=== PATIENT | female | born 1985 | race Caucasian/White ===

== ENCOUNTER 2016-09-13 | Outpatient (CLI) | payer MEDICAID | END 2016-09-13 18:49 | disposition critical access hospital (66) | CPT/HCPCS: A0425; A0429 ==

== ENCOUNTER 2016-09-13 19:17 | Emergency (ER) | payer MEDICAID ==
[2016-09-13] MEDS ORDERED: SODIUM CHLORIDE 0.9% 1,000 ML IV ONE (19:33)
== END 2016-09-13 21:36 | disposition home or self-care (01) ==
DX: R00.2 Palpitations (principal); R03.0 Elevated blood-pressure reading, without diagnosis of hypertension

== ENCOUNTER 2016-12-10 17:09 | Outpatient (CLI) | payer MEDICAID | END 2016-12-10 17:10 | disposition critical access hospital (66) | DX: R00.2 Palpitations (principal) | CPT/HCPCS: A0425; A0427 ==

== ENCOUNTER 2016-12-10 17:13 | Emergency (ER) | payer MEDICAID ==
[2016-12-10] MEDS ORDERED: POTASSIUM CHLORIDE 20 MEQ TABLET PO STA (18:34)
[2016-12-10] MEDS ORDERED: POTASSIUM CHLORIDE 20 MEQ TABLET PO ONE (18:53)
== END 2016-12-10 19:22 | disposition home or self-care (01) ==
DX: R00.2 Palpitations (principal); E87.6 Hypokalemia; K21.9 Gastro-esophageal reflux disease without esophagitis; Z86.79 Personal history of other diseases of the circulatory system
CPT/HCPCS: 36415; 80053; 81001; 81025; 83690; 83735; 93005; 93010; 99283; 99284; A9270

== ENCOUNTER 2017-03-17 11:00 | Outpatient (CLI) | payer MEDICAID ==
[2017-03-17 13:13] LABS: BASOPHILS # (AUTO) 0.1 10^3/uL (0.0-0.1); BASOPHILS % (AUTO) 1.5 %; EOSINOPHILS # (AUTO) 0.4 10^3/uL (0.0-0.7); EOSINOPHILS % (AUTO) 5.8 %; HCT - HEMATOCRIT 37.5 % (37.0-47.0); HGB - HEMOGLOBIN 12.5 g/dL (12.0-16.0); IMMATURE RETIC FRACTION 0.42; LYMPHOCYTES # (AUTO) 2.4 10^3/uL (1.5-3.5); LYMPHOCYTES % (AUTO) 38.1 %; MEAN CORPUSCULAR HEMOGLOBIN 30.7 pg (27.0-31.0); MEAN CORPUSCULAR HGB CONC 33.2 g/dL (32.0-36.0); MEAN CORPUSCULAR VOLUME 92.5 fL (81.0-99.0); MEAN PLATELET VOLUME 8.4 fL (7.9-10.8); MONOCYTES # (AUTO) 0.3 10^3/uL (0.0-1.0); MONOCYTES % (AUTO) 4.7 %; NEUTROPHILS # (AUTO) 3.1 10^3/uL (1.5-6.6); NEUTROPHILS % (AUTO) 49.9 %; RED BLOOD COUNT 4.06 10^6/uL (4.20-5.40); RED CELL DISTRIBUTION WIDTH 14.1 % (12.0-15.0); UNCORRECTED WHITE BLOOD COUNT 6.2 x10^3/uL; WHITE BLOOD COUNT 6.2 x10^3/uL (4.8-10.8)
[2017-03-17 13:32] LABS: ALBUMIN/GLOBULIN RATIO 1.5 (1.0-2.2); BUN - BLOOD UREA NITROGEN 11 mg/dL (6-20); CALCIUM 9.2 mg/dL (8.5-10.3); CARBON DIOXIDE - CO2 25 mmol/L (21-32); CHLORIDE 106 mmol/L (101-111); CHOL/HDL RATIO 3.3 (<4.4); CHOLESTEROL 204 mg/dL; CREATININE 0.7 mg/dL (0.4-1.0); FERRITIN 83.7 ng/mL (11.0-306.8); GFR - MDRD 96 (>89); GLUCOSE 91 mg/dL (70-100); HDL CHOLESTEROL 61 mg/dL; IRON 50 ug/dL (28-170); LDL/HDL RATIO 2.2 (<4.4); POTASSIUM 4.1 mmol/L (3.5-5.0); SODIUM 139 mmol/L (135-145); TOTAL IRON BINDING CAPACITY 368 ug/dL (250-450); TOTAL PROTEIN 7.2 g/dL (6.7-8.2); TRANSFERRIN 263 mg/dL (192-382); TRIGLYCERIDES 55 mg/dL; VLDL CHOLESTEROL 11 mg/dL
[2017-03-17 13:35] LABS: FOLATE 18.42 ng/mL (5.90 - >24.8)
[2017-03-17 13:43] LABS: THYROID STIMULATING HORMONE 1.59 uIU/mL (0.34-5.60)
== END 2017-03-17 11:01 | disposition home or self-care (01) ==
LOC: LAB.N 11:00
PROVIDERS: ATTEND Family Medicine
DX: D64.9 Anemia, unspecified (principal); Z51.81 Encounter for therapeutic drug level monitoring
CPT/HCPCS: 36415; 80050; 80061; 82607; 82728; 82746; 83540; 84466; 85044

== ENCOUNTER 2017-04-11 12:52 | Outpatient (CLI) | payer MEDICAID | END 2017-04-11 12:53 | disposition short-term general hospital (02) | LOC: EMS 12:52 | PROVIDERS: ATTEND Surgery | DX: I46.9 Cardiac arrest, cause unspecified (principal) | CPT/HCPCS: A0425; A0433 ==

== ENCOUNTER 2017-05-19 09:15 | Outpatient (CLI) | payer MEDICAID | END 2017-05-19 09:30 | disposition home or self-care (01) | LOC: RT.N 09:15 | PROVIDERS: ATTEND Family Medicine | DX: I49.9 Cardiac arrhythmia, unspecified (principal); E87.6 Hypokalemia; G93.1 Anoxic brain damage, not elsewhere classified | CPT/HCPCS: 36415; 80050; 83735; 93005 ==

== ENCOUNTER 2017-05-19 15:09 | Outpatient (CLI) | payer MEDICAID ==
[2017-05-19 13:02] LABS: BASOPHILS # (AUTO) 0.1 10^3/uL (0.0-0.1); BASOPHILS % (AUTO) 1.3 %; EOSINOPHILS # (AUTO) 0.3 10^3/uL (0.0-0.7); EOSINOPHILS % (AUTO) 4.6 %; HCT - HEMATOCRIT 32.1 % (37.0-47.0); HGB - HEMOGLOBIN 10.7 g/dL (12.0-16.0); LYMPHOCYTES # (AUTO) 2.9 10^3/uL (1.5-3.5); LYMPHOCYTES % (AUTO) 48.8 %; MEAN CORPUSCULAR HEMOGLOBIN 30.2 pg (27.0-31.0); MEAN CORPUSCULAR HGB CONC 33.3 g/dL (32.0-36.0); MEAN CORPUSCULAR VOLUME 90.5 fL (81.0-99.0); MEAN PLATELET VOLUME 8.5 fL (7.9-10.8); MONOCYTES # (AUTO) 0.3 10^3/uL (0.0-1.0); MONOCYTES % (AUTO) 5.5 %; NEUTROPHILS # (AUTO) 2.3 10^3/uL (1.5-6.6); NEUTROPHILS % (AUTO) 39.8 %; RED BLOOD COUNT 3.55 10^6/uL (4.20-5.40); RED CELL DISTRIBUTION WIDTH 14.5 % (12.0-15.0); UNCORRECTED WHITE BLOOD COUNT 5.9 x10^3/uL; WHITE BLOOD COUNT 5.9 x10^3/uL (4.8-10.8)
[2017-05-19 13:08] LABS: ALBUMIN/GLOBULIN RATIO 1.4 (1.0-2.2); BILIRUBIN,TOTAL 0.8 mg/dL (0.2-1.0); CALCIUM 9.3 mg/dL (8.5-10.3); CREATININE 0.7 mg/dL (0.4-1.0); POTASSIUM 4.4 mmol/L (3.5-5.0); TOTAL PROTEIN 6.7 g/dL (6.7-8.2)
== END 2017-05-19 15:10 | disposition home or self-care (01) ==
LOC: LAB.N 15:09
PROVIDERS: ATTEND Family Medicine
DX: E87.6 Hypokalemia (principal); G93.1 Anoxic brain damage, not elsewhere classified; I49.9 Cardiac arrhythmia, unspecified
CPT/HCPCS: 36415; 80050; 83735

== ENCOUNTER 2017-05-21 14:58 | Outpatient (CLI) | payer MEDICAID | END 2017-05-21 14:59 | disposition short-term general hospital (02) | LOC: EMS 14:58 | PROVIDERS: ATTEND Surgery | DX: R09.89 Other specified symptoms and signs involving the circulatory and respiratory systems (principal) | CPT/HCPCS: A0425; A0427 ==

== ENCOUNTER 2017-08-31 10:23 | Outpatient (CLI) | payer MEDICAID | END 2017-08-31 10:24 | disposition home or self-care (01) | LOC: LAB.N 10:23 | PROVIDERS: ATTEND Psychiatry & Neurology Neurology | DX: G25.3 Myoclonus (principal) | CPT/HCPCS: 36415; 80177 ==

== ENCOUNTER 2017-09-03 16:00 | Outpatient (CLI) | payer MEDICAID | END 2017-09-03 16:01 | disposition home or self-care (01) | LOC: LAB 16:00 | PROVIDERS: ATTEND Psychiatry & Neurology Neurology | DX: G25.3 Myoclonus (principal); T88.7XXA Unspecified adverse effect of drug or medicament, initial encounter | CPT/HCPCS: 36415; 80164; 82140 ==

== ENCOUNTER 2017-09-23 13:54 | Outpatient (CLI) | payer MEDICAID ==
[2017-09-23 19:02] LABS: BASOPHILS # (AUTO) 0.1 10^3/uL (0.0-0.1); BASOPHILS % (AUTO) 1.2 %; EOSINOPHILS # (AUTO) 0.2 10^3/uL (0.0-0.7); EOSINOPHILS % (AUTO) 3.8 %; HGB - HEMOGLOBIN 11.8 g/dL (12.0-16.0); LYMPHOCYTES # (AUTO) 3.2 10^3/uL (1.5-3.5); LYMPHOCYTES % (AUTO) 50.3 %; MEAN CORPUSCULAR HEMOGLOBIN 29.6 pg (27.0-31.0); MEAN CORPUSCULAR VOLUME 89.8 fL (81.0-99.0); MEAN PLATELET VOLUME 8.9 fL (7.9-10.8); MONOCYTES # (AUTO) 0.4 10^3/uL (0.0-1.0); MONOCYTES % (AUTO) 6.6 %; NEUTROPHILS # (AUTO) 2.4 10^3/uL (1.5-6.6); NEUTROPHILS % (AUTO) 38.1 %; PLT - PLATELET COUNT 191 10^3/uL (130-450); RED BLOOD COUNT 3.98 10^6/uL (4.20-5.40); RED CELL DISTRIBUTION WIDTH 14.2 % (12.0-15.0); WHITE BLOOD COUNT 6.4 x10^3/uL (4.8-10.8)
[2017-09-23 19:13] LABS: ALBUMIN 3.9 g/dL (3.2-5.5); ALBUMIN/GLOBULIN RATIO 1.4 (1.0-2.2); BILIRUBIN,TOTAL 0.9 mg/dL (0.2-1.0); CREATININE 0.7 mg/dL (0.4-1.0); TOTAL PROTEIN 6.7 g/dL (6.7-8.2)
== END 2017-09-23 13:55 | disposition home or self-care (01) ==
LOC: LAB.N 13:54
PROVIDERS: ATTEND Psychiatry & Neurology Neurology
DX: G40.409 Other generalized epilepsy and epileptic syndromes, not intractable, without status epilepticus (principal); T88.7XXA Unspecified adverse effect of drug or medicament, initial encounter
CPT/HCPCS: 36415; 80053; 80177; 85025

== ENCOUNTER 2017-11-18 08:40 | Outpatient (CLI) | payer MEDICAID ==
[2017-11-18 12:51] LABS: BASOPHILS # (AUTO) 0.1 10^3/uL (0.0-0.1); BASOPHILS % (AUTO) 1.1 %; EOSINOPHILS # (AUTO) 0.2 10^3/uL (0.0-0.7); EOSINOPHILS % (AUTO) 4.5 %; HGB - HEMOGLOBIN 11.8 g/dL (12.0-16.0); LYMPHOCYTES # (AUTO) 2.5 10^3/uL (1.5-3.5); LYMPHOCYTES % (AUTO) 48.4 %; MEAN CORPUSCULAR HEMOGLOBIN 31.8 pg (27.0-31.0); MEAN CORPUSCULAR HGB CONC 34.4 g/dL (32.0-36.0); MEAN CORPUSCULAR VOLUME 92.3 fL (81.0-99.0); MEAN PLATELET VOLUME 8.3 fL (7.9-10.8); MEAN RETIC VALUE 107.8; MONOCYTES # (AUTO) 0.4 10^3/uL (0.0-1.0); MONOCYTES % (AUTO) 7.1 %; NEUTROPHILS % (AUTO) 38.9 %; PLT - PLATELET COUNT 220 10^3/uL (130-450); RED BLOOD COUNT 3.72 10^6/uL (4.20-5.40); RED CELL DISTRIBUTION WIDTH 14.8 % (12.0-15.0); WHITE BLOOD COUNT 5.2 x10^3/uL (4.8-10.8)
[2017-11-18 13:12] LABS: ALBUMIN 3.7 g/dL (3.2-5.5); ALBUMIN/GLOBULIN RATIO 1.3 (1.0-2.2); BILIRUBIN,TOTAL 0.6 mg/dL (0.2-1.0); CALCIUM 8.9 mg/dL (8.5-10.3); CREATININE 0.7 mg/dL (0.4-1.0); TOTAL PROTEIN 6.5 g/dL (6.7-8.2)
[2017-11-18 13:26] LABS: FERRITIN 92.7 ng/mL (11.0-306.8)
[2017-11-18 13:29] LABS: FOLATE 8.69 ng/mL (5.90 - >24.8)
== END 2017-11-18 08:41 | disposition home or self-care (01) ==
LOC: LAB.N 08:40
PROVIDERS: ATTEND Family Medicine
DX: E87.6 Hypokalemia (principal); I49.9 Cardiac arrhythmia, unspecified; D64.9 Anemia, unspecified
CPT/HCPCS: 36415; 80053; 82607; 82728; 82746; 83540; 84466; 85025; 85044

== ENCOUNTER 2017-12-21 20:40 | Outpatient (CLI) | payer MEDICAID ==
[2017-12-21 21:14] LABS: VALPROIC ACID (DEPAKOTE) 45.4 ug/mL
== END 2017-12-21 20:41 | disposition home or self-care (01) ==
LOC: LAB 20:40
PROVIDERS: ATTEND Psychiatry & Neurology Neurology
DX: G25.3 Myoclonus (principal)
CPT/HCPCS: 36415; 80164; 80177; 82140

== ENCOUNTER 2018-02-12 08:08 | Outpatient (CLI) | payer MEDICAID | END 2018-02-12 08:09 | disposition home or self-care (01) | LOC: LAB 08:08 | PROVIDERS: ATTEND Psychiatry & Neurology Neurology | DX: G25.3 Myoclonus (principal) | CPT/HCPCS: 36415; 80177 ==

== ENCOUNTER 2018-04-03 18:11 | Outpatient (CLI) | payer MEDICAID | END 2018-04-03 18:12 | disposition critical access hospital (66) | LOC: EMS 18:11 | PROVIDERS: ATTEND Surgery | DX: R56.9 Unspecified convulsions (principal) | CPT/HCPCS: A0425; A0429; A0999 ==

== ENCOUNTER 2018-04-03 18:34 | Emergency (ER) | payer MEDICAID ==
[2018-04-03] MEDS ORDERED: LORazepam 2 MG/ML VIAL IVP STA (19:12)
--- NOTE | 2018-04-03 19:36 | ED Physician Documentation ---
History of Present Illness - Stated complaint Stated Complaint: SZ'S - Chief complaint Chief Complaint: General - History obtained from History obtained from: Patient, Family, EMS - History of Present Illness Timing: Today Pain level max: 0 Pain level now: 0 Improved by: nothing Worsened by: nothing - Additonal information Additional information: Patient is a 32-year-old female who presents to the emergency department with an increase in her myoclonic activity today. This is not uncommon for her, but she did take her Ativan without resolution. She was recently started on Topamax. She has a history of anoxic brain injury, pacemaker status post cardiac arrest. Denies any other symptoms at this time. She is accompanied by her mother today. No fevers. No vomiting. No dysuria Review of Systems Ten Systems: 10 systems reviewed and negative Constitutional: denies: Fever, Chills Ears: denies: Ear pain Nose: denies: Rhinorrhea / runny nose, Congestion Respiratory: denies: Cough GI: denies: Nausea, Vomiting, Diarrhea : denies: Dysuria, Now EGA Skin: denies: Rash Musculoskeletal: denies: Neck pain, Back pain Neurologic: denies: Headache PD PAST MEDICAL HISTORY - Past Medical History Cardiovascular: [place], Arrhythmia, Other Neuro: Headaches, Seizure disorder GI: GERD Psych: Depression, Anxiety Other Past Medical History: pacemaker - Past Surgical History Past Surgical History: Yes General: Cholecystectomy, EGD Cardiovascular: Pacemaker - Present Medications Home Medications: Ambulatory Orders Medication Instructions Recorded Confirmed Ascorbic Acid [C-500] 1 tab PO DAILY 05/21/14 12/10/16 Ferrous Gluconate 1 tab PO BID 05/21/14 12/10/16 LORazepam [Lorazepam] 0.5 mg PO TID PRN 05/21/14 12/10/16 Ezra Cit/Mag/D3/Zn/Pewter Fabricator/[place]/Bor 1 tab BID 12/10/16 12/10/16 [Citracal-Vit D + Magnesium Tab] Cholecalciferol (Vitamin D3) 1,000 units BID 12/10/16 12/10/16 [Vitamin D3] FLUoxetine [PROzac] 20 mg PO DAILY 12/10/16 12/10/16 Magnesium 500 mg PO DAILY 12/10/16 12/10/16 Ubidecarenone [Co Q-10] 50 mg BID 12/10/16 12/10/16 Acetaminophen [Tylenol Extra 250 mg PO PRN PRN 04/03/18 04/03/18 Strength] Aspirin 162 mg PO PRN PRN 04/03/18 04/03/18 Docusate Sodium 250Mg Capsule 250 mg PO BID 04/03/18 04/03/18 [Colace 250Mg Capsule] Ibuprofen 600 mg PO PRN PRN 04/03/18 04/03/18 Levetiracetam [Keppra] 1,500 mg PO BID 04/03/18 04/03/18 Pantoprazole [Protonix] 40 mg PO DAILY 04/03/18 04/03/18 Propranolol [Inderal] 10 mg PO TID 04/03/18 04/03/18 Simethicone [Gas Relief] PRN 04/03/18 Topiramate [Topamax] 25 mg PO BID 04/03/18 04/03/18 - Allergies Allergies/Adverse Reactions: Allergies Allergy/AdvReac Type Severity Reaction Status Date / Time azithromycin [From Zithromax] AdvReac Severe prolonged Verified 04/03/18 18:43 qt ciprofloxacin [From Cipro] AdvReac Severe prolonged Verified 04/03/18 18:43 QT ciprofloxacin HCl * AdvReac Severe prolonged Verified 04/03/18 18:43 [From Cipro] QT desipramine AdvReac Severe prolonged Verified 04/03/18 18:43 QT diphenhydramine HCl * AdvReac Severe prolonged Verified 04/03/18 18:43 [From Benadryl] QT droperidol [From Inapsine] AdvReac Severe prolonged Verified 04/03/18 18:43 QT erythromycin base AdvReac Severe prolonged Verified 04/03/18 18:43 [Erythromycin Base] QT levofloxacin [From Levaquin] AdvReac Severe prolonged Verified 04/03/18 18:43 QT prochlorperazine edisylate * AdvReac Severe prolonged Verified 04/03/18 18:43 [From Compazine] qt prochlorperazine maleate * AdvReac Severe prolonged Verified 04/03/18 18:43 [From Compazine] qt sertraline AdvReac Severe prolonged Verified 05/21/14 03:55 QT Sulfa (Sulfonamide AdvReac Hallucinati Verified 10/08/14 10:58 Antibiotics) ons - Social History Does the pt smoke?: No Smoking Status: Never smoker Does the pt drink ETOH?: No Does the pt have substance abuse?: No - Immunizations Immunizations are current?: Yes - POLST Patient has POLST: No PD ED PE NORMAL - Vitals Vital signs reviewed: Yes - General General: Alert and oriented X 3, No acute distress, Well developed/nourished - HEENT HEENT: Moist mucous membranes - Neck Neck: Supple, no meningeal sign - Cardiac Cardiac: RRR - Respiratory Respiratory: No respiratory distress, Clear bilaterally - Abdomen Abdomen: Soft, Non tender, Non distended - Back Back: No CVA TTP, No spinal TTP - Derm Derm: Warm and dry - Extremities Extremities: No edema - Neuro Neuro: Alert and oriented X 3 - Psych Psych: Normal mood, Normal affect Results - Vitals Vitals: Vital Signs - 24 hr 04/03/18 04/03/18 04/03/18 18:33 18:58 19:45 Temperature 36.6 C Heart Rate 75 77 Respiratory 20 19 Rate Blood Pressure 131/102 H 114/75 O2 Saturation 97 98 04/03/18 21:02 Temperature 36.1 C L Heart Rate 82 Respiratory 20 Rate Blood Pressure 115/65 O2 Saturation 97 Oxygen O2 Source Room air - EKG (time done) 1950 Rate: Rate (enter#) (80) Rhythm: NSR [place]: Normal Intervals: Normal AR QRS: Normal Ischemia: Normal ST segments Computer interpretation: Agree with computer - Labs Labs: Laboratory Tests 04/03/18 04/03/18 04/03/18 19:30 19:35 19:35 WBC 8.3 RBC 3.95 L Hgb 12.5 Hct 36.0 L MCV 91.1 MCH 31.7 H MCHC 34.8 RDW 13.2 Plt Count 317 MPV 7.4 L Neut # (Auto) 3.9 Lymph # (Auto) 3.8 H [place] # (Auto) 0.4 Eos # (Auto) 0.2 Baso # (Auto) 0.1 Absolute Nucleated RBC 0.00 Nucleated RBC % 0.0 Sodium 138 Potassium 3.8 Chloride 109 Carbon Dioxide 21 Anion Gap 8.0 BUN 11 Creatinine 0.7 Estimated GFR (MDRD) 96 Glucose 128 H Calcium 9.2 Total Bilirubin 0.6 AST 24 ALT 24 Alkaline Phosphatase 79 Total Protein 7.0 Albumin 4.0 Globulin 3.0 Albumin/Globulin Ratio 1.3 Lipase 53 H Urine Color YELLOW Urine Clarity CLEAR Urine pH 6.5 Ur Specific [place] 1.025 Urine Protein NEGATIVE Urine Glucose (UA) NEGATIVE Urine Ketones NEGATIVE Urine Occult Blood NEGATIVE Urine Nitrite NEGATIVE Urine Bilirubin NEGATIVE Urine Urobilinogen 0.2 (NORMAL) Ur Leukocyte Esterase NEGATIVE Ur Microscopic Review NOT INDICATED Urine Culture Comments NOT INDICATED PD MEDICAL DECISION MAKING - ED course Complexity details: reviewed old records (recent neurology and PCP visits.), reviewed results, re-evaluated patient, considered differential, d/w patient, d/ w family ED course: Patient with myoclonus from her anoxic brain injury. Feels much better after ativan. No acute lab abnormalities. Will have her follow up with her PCP for further care. Patient counseled regarding signs and symptoms for which I believe and urgent re-evaluation would be necessary. Patient with good understanding of and agreement to plan and is comfortable going home at this time This document was made in part using voice recognition software. While efforts are made to proofread this document, sound alike and grammatical errors may occur. - Sepsis Event Vital Signs: Vital Signs - 24 hr 04/03/18 04/03/18 04/03/18 18:33 18:58 19:45 Temperature 36.6 C Heart Rate 75 77 Respiratory 20 19 Rate Blood Pressure 131/102 H 114/75 O2 Saturation 97 98 04/03/18 21:02 Temperature 36.1 C L Heart Rate 82 Respiratory 20 Rate Blood Pressure 115/65 O2 Saturation 97 Oxygen O2 Source Room air Departure - Departure Disposition: 01 Home, Self Care Clinical Impression: Myoclonic disorder Condition: Good Instructions: ED Seizure Recurrent Follow-Up: Rodriguez Sher MD [Physician No Access] - Comments: Your QTc is 438 tonight. Follow up with your doctor for further care. Return if you worsen. Discharge Date/Time: 04/03/18 21:20
[2018-04-03 19:40] LABS: BILIRUBIN,URINE NEGATIVE (NEGATIVE); CLARITY,URINE CLEAR (CLEAR); GLUCOSE, URINE (UA) NEGATIVE (NEGATIVE); KETONES,URINE (UA) NEGATIVE (NEGATIVE); LEUKOCYTE ESTERASE, URINE NEGATIVE (NEGATIVE); NITRITE,URINE NEGATIVE (NEGATIVE); OCCULT BLOOD,URINE NEGATIVE (NEGATIVE); PH,URINE 6.5 PH (5.0-7.5); PROTEIN,URINE NEGATIVE (NEGATIVE); UROBILINOGEN,URINE 0.2 (NORMAL) E.U./dL (NORMAL)
[2018-04-03 19:43] LABS: BASOPHILS # (AUTO) 0.1 10^3/uL (0.0-0.1); EOSINOPHILS # (AUTO) 0.2 10^3/uL (0.0-0.7); EOSINOPHILS % (AUTO) 2.9 %; HGB - HEMOGLOBIN 12.5 g/dL (12.0-16.0); LYMPHOCYTES # (AUTO) 3.8 10^3/uL (1.5-3.5); LYMPHOCYTES % (AUTO) 45.2 %; MEAN CORPUSCULAR HEMOGLOBIN 31.7 pg (27.0-31.0); MEAN CORPUSCULAR HGB CONC 34.8 g/dL (32.0-36.0); MEAN CORPUSCULAR VOLUME 91.1 fL (81.0-99.0); MEAN PLATELET VOLUME 7.4 fL (7.9-10.8); MONOCYTES # (AUTO) 0.4 10^3/uL (0.0-1.0); MONOCYTES % (AUTO) 4.5 %; NEUTROPHILS # (AUTO) 3.9 10^3/uL (1.5-6.6); NEUTROPHILS % (AUTO) 46.4 %; PLT - PLATELET COUNT 317 10^3/uL (130-450); RED BLOOD COUNT 3.95 10^6/uL (4.20-5.40); RED CELL DISTRIBUTION WIDTH 13.2 % (12.0-15.0); WHITE BLOOD COUNT 8.3 x10^3/uL (4.8-10.8)
[2018-04-03 19:59] LABS: ALBUMIN/GLOBULIN RATIO 1.3 (1.0-2.2); BILIRUBIN,TOTAL 0.6 mg/dL (0.2-1.0); CALCIUM 9.2 mg/dL (8.5-10.3); CREATININE 0.7 mg/dL (0.4-1.0)
[2018-04-03 21:03] VITALS: BP 115/65
== END 2018-04-03 21:20 | disposition home or self-care (01) ==
LOC: EDUNIT# → ED 18:34
DX: G25.3 Myoclonus (principal); G93.1 Anoxic brain damage, not elsewhere classified; Z95.0 Presence of cardiac pacemaker; Z79.899 Other long term (current) drug therapy
CPT/HCPCS: 36415; 80053; 81003; 83690; 85025; 93005; 96374; 99283; 99284; J2060; 81001; 87086

== ENCOUNTER 2018-06-08 09:30 | Outpatient (CLI) | payer MEDICAID ==
[2018-06-08 12:54] LABS: BASOPHILS # (AUTO) 0.1 10^3/uL (0.0-0.1); BASOPHILS % (AUTO) 1.1 %; EOSINOPHILS # (AUTO) 0.1 10^3/uL (0.0-0.7); EOSINOPHILS % (AUTO) 1.6 %; HGB - HEMOGLOBIN 12.8 g/dL (12.0-16.0); LYMPHOCYTES # (AUTO) 2.7 10^3/uL (1.5-3.5); LYMPHOCYTES % (AUTO) 46.5 %; MEAN CORPUSCULAR HEMOGLOBIN 31.7 pg (27.0-31.0); MEAN CORPUSCULAR VOLUME 93.3 fL (81.0-99.0); MEAN PLATELET VOLUME 8.5 fL (7.9-10.8); MONOCYTES # (AUTO) 0.4 10^3/uL (0.0-1.0); MONOCYTES % (AUTO) 6.3 %; NEUTROPHILS # (AUTO) 2.6 10^3/uL (1.5-6.6); NEUTROPHILS % (AUTO) 44.5 %; PLT - PLATELET COUNT 279 10^3/uL (130-450); RED BLOOD COUNT 4.02 10^6/uL (4.20-5.40); RED CELL DISTRIBUTION WIDTH 13.9 % (12.0-15.0); WHITE BLOOD COUNT 5.9 x10^3/uL (4.8-10.8)
[2018-06-08 13:18] LABS: % IRON SATURATION 29 % (20-50); ALBUMIN 4.3 g/dL (3.2-5.5); ALBUMIN/GLOBULIN RATIO 1.3 (1.0-2.2); ALKALINE PHOSPHATASE 86 IU/L (42-121); ALT ALANINE AMINOTRANSFERASE 30 IU/L (10-60); AST ASPARTATE AMINOTRANSFERASE 21 IU/L (10-42); BILIRUBIN,TOTAL 0.8 mg/dL (0.2-1.0); BUN - BLOOD UREA NITROGEN 11 mg/dL (6-20); CALCIUM 9.6 mg/dL (8.5-10.3); CARBON DIOXIDE - CO2 23 mmol/L (21-32); CHLORIDE 107 mmol/L (101-111); CHOL/HDL RATIO 5.3 (<4.4); CHOLESTEROL 213 mg/dL; CREATININE 0.7 mg/dL (0.4-1.0); GFR - MDRD 95 (>89); GLUCOSE 96 mg/dL (70-100); HDL CHOLESTEROL 40 mg/dL; IRON 82 ug/dL (28-170); LDL CHOLESTEROL,CALCULATED 141 mg/dL; LDL/HDL RATIO 3.5 (<4.4); SODIUM 140 mmol/L (135-145); THYROID STIMULATING HORMONE 1.44 uIU/mL (0.34-5.60); TOTAL IRON BINDING CAPACITY 280 ug/dL (250-450); TOTAL PROTEIN 7.5 g/dL (6.7-8.2); TRANSFERRIN 200 mg/dL (192-382); VLDL CHOLESTEROL 32 mg/dL
[2018-06-08 13:24] LABS: FERRITIN 170.6 ng/mL (11.0-306.8)
== END 2018-06-08 09:31 | disposition home or self-care (01) ==
LOC: LAB.N 09:30
PROVIDERS: ATTEND Family Medicine
DX: R56.9 Unspecified convulsions (principal); E87.6 Hypokalemia; E66.9 Obesity, unspecified; D64.9 Anemia, unspecified; Z51.81 Encounter for therapeutic drug level monitoring
CPT/HCPCS: 80050; 80061; 82728; 83540; 83721; 84466

== ENCOUNTER 2018-06-08 20:51 | Observation (INO) | payer MEDICAID ==
[2018-06-08 21:18] LABS: BASOPHILS # (AUTO) 0.1 10^3/uL (0.0-0.1); EOSINOPHILS # (AUTO) 0.1 10^3/uL (0.0-0.7); EOSINOPHILS % (AUTO) 1.7 %; HGB - HEMOGLOBIN 13.1 g/dL (12.0-16.0); LYMPHOCYTES # (AUTO) 3.7 10^3/uL (1.5-3.5); LYMPHOCYTES % (AUTO) 50.1 %; MEAN CORPUSCULAR HEMOGLOBIN 31.1 pg (27.0-31.0); MEAN CORPUSCULAR HGB CONC 33.6 g/dL (32.0-36.0); MEAN CORPUSCULAR VOLUME 92.5 fL (81.0-99.0); MONOCYTES # (AUTO) 0.4 10^3/uL (0.0-1.0); MONOCYTES % (AUTO) 5.7 %; NEUTROPHILS # (AUTO) 3.1 10^3/uL (1.5-6.6); NEUTROPHILS % (AUTO) 41.5 %; PLT - PLATELET COUNT 278 10^3/uL (130-450); RED CELL DISTRIBUTION WIDTH 13.8 % (12.0-15.0); WHITE BLOOD COUNT 7.4 x10^3/uL (4.8-10.8)
--- NOTE | 2018-06-08 21:29 | ED Physician Documentation ---
PD HPI CHEST PAIN - Stated complaint Stated Complaint: CP - Chief complaint Chief Complaint: Cardiac - History obtained from History obtained from: Patient, Family (mom) - History of Present Illness Timing - onset: Today (33-year-old woman with history of cardiac arrest in 2011 due to long QT from meds and in 2017 as well with AICD in place. She presents with chest pain that started today. She feels like there is a swollen area between her breasts. She had a similar episode 6 months ago and was told that that might be a lipoma. However the mass went away and recurred today. She also has dizziness, spots in her vision, nausea and diarrhea. She denies abdominal pain or possibility of . During the second cardiac arrest she had some anoxic brain injury and much of the history is from the mother because of poor memory.) Review of Systems Ten Systems: 10 systems reviewed and negative Constitutional: denies: Fever, Chills Respiratory: reports: Reviewed and negative GI: reports: Reviewed and negative PD PAST MEDICAL HISTORY - Past Medical History Past Medical History: Yes Cardiovascular: [place], Arrhythmia, Other Neuro: Headaches, Seizure disorder GI: GERD Psych: Depression, Anxiety - Past Surgical History Past Surgical History: Yes General: Cholecystectomy, EGD Cardiovascular: Pacemaker - Present Medications Home Medications: Ambulatory Orders Medication Instructions Recorded Confirmed Ascorbic Acid [C-500] 1 tab PO DAILY 05/21/14 12/10/16 Ferrous Gluconate 1 tab PO BID 05/21/14 12/10/16 LORazepam [Lorazepam] 0.5 mg PO TID PRN 05/21/14 12/10/16 Ezra Cit/Mag/D3/Zn/Cushion Spring Assembler/[place]/Bor 1 tab BID 12/10/16 12/10/16 [Citracal-Vit D + Magnesium Tab] Cholecalciferol (Vitamin D3) 1,000 units BID 12/10/16 12/10/16 [Vitamin D3] FLUoxetine [PROzac] 20 mg PO DAILY 12/10/16 12/10/16 Magnesium 500 mg PO DAILY 12/10/16 12/10/16 Ubidecarenone [Co Q-10] 50 mg BID 12/10/16 12/10/16 Acetaminophen [Tylenol Extra 250 mg PO PRN PRN 04/03/18 04/03/18 Strength] Aspirin 162 mg PO PRN PRN 04/03/18 04/03/18 Docusate Sodium 250Mg Capsule 250 mg PO BID 04/03/18 04/03/18 [Colace 250Mg Capsule] Ibuprofen 600 mg PO PRN PRN 04/03/18 04/03/18 Levetiracetam [Keppra] 1,500 mg PO BID 04/03/18 04/03/18 Pantoprazole [Protonix] 40 mg PO DAILY 04/03/18 04/03/18 Propranolol [Inderal] 10 mg PO TID 04/03/18 04/03/18 Simethicone [Gas Relief] PRN 04/03/18 Topiramate [Topamax] 25 mg PO BID 04/03/18 04/03/18 - Allergies Allergies/Adverse Reactions: Allergies Allergy/AdvReac Type Severity Reaction Status Date / Time azithromycin [From Zithromax] AdvReac Severe prolonged Verified 06/08/18 21:15 qt ciprofloxacin [From Cipro] AdvReac Severe prolonged Verified 06/08/18 21:15 QT ciprofloxacin HCl * AdvReac Severe prolonged Verified 06/08/18 21:15 [From Cipro] QT desipramine AdvReac Severe prolonged Verified 06/08/18 21:15 QT diphenhydramine HCl * AdvReac Severe prolonged Verified 06/08/18 21:15 [From Benadryl] QT droperidol [From Inapsine] AdvReac Severe prolonged Verified 06/08/18 21:15 QT erythromycin base AdvReac Severe prolonged Verified 06/08/18 21:15 [Erythromycin Base] QT levofloxacin [From Levaquin] AdvReac Severe prolonged Verified 06/08/18 21:15 QT prochlorperazine edisylate * AdvReac Severe prolonged Verified 06/08/18 21:15 [From Compazine] qt prochlorperazine maleate * AdvReac Severe prolonged Verified 06/08/18 21:15 [From Compazine] qt sertraline AdvReac Severe prolonged Verified 06/08/18 21:15 QT Sulfa (Sulfonamide AdvReac Hallucinati Verified 06/08/18 21:15 Antibiotics) ons - Social History Does the pt smoke?: No Smoking Status: Never smoker Does the pt drink ETOH?: No Does the pt have substance abuse?: No - Immunizations Immunizations are current?: Yes - POLST Patient has POLST: No PD ED PE NORMAL - Vitals Vital signs reviewed: Yes - General General: Alert and oriented X 3, Other (Labile mood) - HEENT HEENT: PERRL, EOMI - Neck Neck: Supple, no meningeal sign, No bony TTP - Cardiac Cardiac: RRR, No murmur, Other (I do not feel any specific mass between the breasts, does seem to be a lot of soft tissue between the breasts though) - Respiratory Respiratory: No respiratory distress, Clear bilaterally - Abdomen Abdomen: Normal bowel sounds, Soft, Non tender - Derm Derm: Normal color, Warm and dry - Extremities Extremities: No edema, No calf tenderness / cord - Neuro Neuro: Alert and oriented X 3, Normal speech Eye Opening: Spontaneous Motor: Obeys Commands Verbal: Oriented GCS Score: 15 Results - Vitals Vitals: Vital Signs - 24 hr 06/08/18 06/08/18 06/08/18 21:01 21:16 21:37 Temperature 36.7 C Heart Rate 75 75 75 Respiratory 18 21 16 Rate Blood Pressure 130/75 93/58 L 105/78 O2 Saturation 98 100 96 06/08/18 06/08/18 22:10 22:15 Temperature Heart Rate 75 72 Respiratory 27 H 16 Rate Blood Pressure 118/67 132/94 H O2 Saturation 97 99 Oxygen O2 Source Room air - EKG (time done) 2101 Rate: Rate (enter#) (75) Rhythm: NSR [place]: Normal Intervals: Normal [place]. No: Prolonged QT QRS: Normal Ischemia: Normal ST segments Computer interpretation: Agree with computer - Labs Labs: Laboratory Tests 06/08/18 06/08/18 06/08/18 21:09 21:09 21:09 WBC 7.4 RBC 4.20 Hgb 13.1 Hct 38.8 MCV 92.5 MCH 31.1 H MCHC 33.6 RDW 13.8 Plt Count 278 MPV 8.0 Neut # (Auto) 3.1 Lymph # (Auto) 3.7 H [place] # (Auto) 0.4 Eos # (Auto) 0.1 Baso # (Auto) 0.1 Absolute Nucleated RBC 0.01 Nucleated RBC % 0.1 Sodium 139 Potassium 3.8 Chloride 107 Carbon Dioxide 23 Anion Gap 9.0 BUN 14 Creatinine 0.7 Estimated GFR (MDRD) 95 Glucose 125 H Calcium 9.2 Total Bilirubin 0.6 AST 22 ALT 24 Alkaline Phosphatase 89 Troponin I < 0.04 Total Protein 7.3 Albumin 4.3 Globulin 3.0 Albumin/Globulin Ratio 1.4 Lipase 44 PD MEDICAL DECISION MAKING - ED course ED course: 33-year-old woman with history of cardiac arrest x2 presents with chest pain, sensation of swelling between the breasts, previously diagnosed as lipoma. Nothing on CT imaging there to explain that. Given her high risk history despite her young age she will placed in observation and I spoke with Dr. Mcclain at 10:42 PM. Departure - Departure Disposition: ED Place in Observation Clinical Impression: History of cardiac arrest Chest pain Qualifiers: Chest pain type: unspecified Qualified Code(s): R07.9 - Chest pain, unspecified Condition: Good
[2018-06-08] MEDS ORDERED: IOPAMIDOL-300 100 ML VIAL ONE (21:30)
[2018-06-08 21:33] LABS: ALBUMIN 4.3 g/dL (3.2-5.5); ALBUMIN/GLOBULIN RATIO 1.4 (1.0-2.2); BILIRUBIN,TOTAL 0.6 mg/dL (0.2-1.0); CALCIUM 9.2 mg/dL (8.5-10.3); CREATININE 0.7 mg/dL (0.4-1.0); TOTAL PROTEIN 7.3 g/dL (6.7-8.2)
[2018-06-08] MEDS ORDERED: IOPAMIDOL-300 100 ML VIAL IVP ONE (22:15)
--- NOTE | 2018-06-08 22:40 | CT Report ---
Reason: anterior chest wall mass Procedure Date: 06/08/2018 Accession Number: [id number] / [id number] Procedure: CT - Chest W/ CPT Code: FULL RESULT: EXAM: CT CHEST EXAM DATE: 06/08/2018 10:13 PM. CLINICAL HISTORY: Anterior chest wall mass. COMPARISONS: None. TECHNIQUE: Routine helical CT imaging was performed through the chest. IV contrast: Yes. Reconstructions: Coronal and sagittal. In accordance with CT protocol optimization, one or more of the following dose reduction techniques were utilized for this exam: automated exposure control, adjustment of mA and/or KV based on patient size, or use of iterative reconstructive technique. FINDINGS: Lungs/Pleura: No nodules, bronchial thickening, consolidation, or edema. Pulmonary vasculature is normal. No pericardial or pleural effusion. No pneumothorax. Mediastinum: Normal. No adenopathy or masses. The heart and great vessels are normal. Bones: Unremarkable. Visualized Abdomen: Unremarkable post cholecystectomy. Other: Left pacemaker in place. No soft tissue mass seen in the chest. IMPRESSION: Negative chest CT. No soft tissue mass seen in the chest. RAD[facility]
[2018-06-08] MEDS ORDERED: PROCHLORPERAZINE 10 MG/2 ML VIAL IVP PRN (22:42)
[2018-06-08] MEDS ORDERED: SODIUM CHLORIDE FLUSH 0.9% 10 ML SYRINGE IVP PRN (22:42)
[2018-06-08] MEDS ORDERED: IBUPROFEN 600 MG TABLET PO PRN (22:42)
[2018-06-08] MEDS ORDERED: MORPHINE 2 MG/ML CARPUJECT IVP PRN (22:42)
[2018-06-08] MEDS ORDERED: ASPIRIN CHEW 81 MG TABLET PO ONE (22:42)
[2018-06-08] MEDS ORDERED: ACETAMINOPHEN 325 MG TABLET PO PRN (22:42)
[2018-06-08] MEDS ORDERED: oxyCODONE 5 MG TABLET PO PRN (22:42)
[2018-06-08] MEDS ORDERED: PROPRANOLOL 10 MG TABLET PO STA (22:50)
[2018-06-08] MEDS ORDERED: levETIRAcetam 250 MG TABLET PO STA (22:50)
[2018-06-08] MEDS ORDERED: LORazepam 0.5 MG TABLET PO STA (22:50)
[2018-06-08] MEDS ORDERED: TOPIRAMATE 25 MG TABLET PO STA (22:50)
[2018-06-08] MEDS ORDERED: NITROGLYCERIN 50 MG/250 ML 50 MG/250 ML BOTTLE IV SCH (23:00)
--- NOTE | 2018-06-08 23:00 | HISTORY & PHYSICAL EXAMINATION ---
Chief Complaint - Chief Complaint Chief Complaint: Chest pain History of Present Illness - Admitted From Admitted From:: Emergency Department - History Obtained From Records Reviewed: Yes History obtained from: Patient and patients mom Exam Limitations: Pt has some mild difficulties providing history due to anoxic brain injury - History of Present Illness HPI Comment/Other: Patient is a very unfortunate 33-year-old female who has a past medical history significant for 2 cardiac arrests 1 in 2011 secondary to prolonged QT with torsades and more recently in 2017 leading to anoxic brain injury who now has a AICD, history of trisomy X, anxiety, depression, seizures, chronic migraines, myoclonic disorder, generalized anxiety disorder and panic attacks who presented to the emergency department with a chief complaint of chest pain. The patient states that she was in her normal state of health until just after dinner when she states that she had an episode of diarrhea. She states that after the diarrhea she went back to her table in the restaurant and did not feel well. She states that she felt nauseated and wanted to go home. She states that she paid the bill with her mother and was walking out of the restaurant with her walker. She states that she had to stop after a few steps as she began to have flashing in her visual hall. She states that she has been having this off and on since her anoxic brain injury last year but states that this was more bothersome than normal. She states that she continued to remain nauseated finally she was able to get to her car but was having trouble answering questi ons at that point. She was also moving very slowly. She states that that point she began having a burning sensation below her left breast and tightness over her right breast and into her right shoulder. She states that when she got into the car she checked her blood pressure and it was around 90 systolic and her pulse was 80. She states that her chest discomfort continued until she was brought to the emergency department. She denies any diaphoresis, palpitations or any shortness of breath. She states that she did feel lightheaded. She denies any fevers or chills. She denies any cough. The patient denies any runny nose, sore throat, nasal congestion, difficulty swallowing, orthopnea, PND, increased lower extremity swelling, abdominal pain, vomiting, constipation, urinary urgency, urinary frequency, dysuria, joint swelling, muscle aches, back pain, neck stiffness, recent unintentional weight loss, changes in her appetite, polyuria, polydipsia, skin rash, skin changes, night sweats or any focal neurologic deficits. On presentation to the emergency department the patient was afebrile and vital signs are within normal limits. The patient's blood pressure did drop down to 93/58 while she was in the emergency department. In the emergency department the patient underwent routine lab work which showed a mildly elevated blood glucose of 125 but were otherwise within normal limits. The patient's troponin was less than 0.04 and EKG showed sinus rhythm without any ST elevations or ischemic changes. The patient underwent a CT of her chest which was negative. Given the patient's significant cardiac history the patient was placed in observation for chest pain. History - Past Medical History Cardiovascular: reports: SD, Arrhythmia, Other (Cardiac Arrest x2 ) Neuro: reports: Headaches, Seizure disorder, Other (Anoxic Brain Injury, Myclonic disorder) GI: reports: GERD Psych: reports: Depression, Anxiety, Panic attacks MRSA Hx?: No Other Past Medical History: Trisomy X - Past Surgical History General: reports: Cholecystectomy, EGD Cardiovascular: reports: Pacemaker - Family & Social History Family History: Mother: Alive and Well, Father: Alzheimer's Disease, Other family: CAD (Aunt Breast Ca, Uncle Thyroid Ca), Diabetes, Type 2 (Aunt and uncle) Living arrangement: At home Living Situation: With family Social History Notes: The patient lives with her mother in [place]. The patient's sister also comes over on weekends to help with the patient's care. Patient's father is at [facility] and enrolled in hospice. The patient has lived on [facility] since the age of 1. She does not have any children and is not . She was born in [place]. She is unemployed and on disability. She is never been a smoker, she does not drink alcohol and denies any illicit drug use. - POLST Patient has POLST: No POLST Status: Full Code Meds/Allgy - Home Medications Home Medications: Ambulatory Orders Medication Instructions Recorded Confirmed Ascorbic Acid [C-500] 1 tab PO DAILY 05/21/14 12/10/16 Ferrous Gluconate 1 tab PO BID 05/21/14 12/10/16 LORazepam [Lorazepam] 0.5 mg PO TID PRN 05/21/14 12/10/16 Ezra Cit/Mag/D3/Zn/Personal Health Coach/[place]/Bor 1 tab BID 12/10/16 12/10/16 [Citracal-Vit D + Magnesium Tab] Cholecalciferol (Vitamin D3) 1,000 units BID 12/10/16 12/10/16 [Vitamin D3] FLUoxetine [PROzac] 30 mg PO DAILY 12/10/16 12/10/16 Magnesium 500 mg PO DAILY 12/10/16 12/10/16 Ubidecarenone [Co Q-10] 50 mg BID 12/10/16 12/10/16 Acetaminophen [Tylenol Extra 250 mg PO PRN PRN 04/03/18 04/03/18 Strength] Aspirin 162 mg PO PRN PRN 04/03/18 04/03/18 Docusate Sodium 250Mg Capsule 250 mg PO BID 04/03/18 04/03/18 [Colace 250Mg Capsule] Ibuprofen 600 mg PO PRN PRN 04/03/18 04/03/18 Levetiracetam [Keppra] 1,500 mg PO BID 04/03/18 04/03/18 Pantoprazole [Protonix] 40 mg PO DAILY 04/03/18 04/03/18 Propranolol [Inderal] 10 mg PO TID 04/03/18 04/03/18 Simethicone [Gas Relief] PRN 04/03/18 Topiramate [Topamax] 25 mg PO BID 04/03/18 04/03/18 - Allergies Allergies/Adverse Reactions: Allergies Allergy/AdvReac Type Severity Reaction Status Date / Time azithromycin [From Zithromax] AdvReac Severe prolonged Verified 06/08/18 21:15 qt ciprofloxacin [From Cipro] AdvReac Severe prolonged Verified 06/08/18 21:15 QT ciprofloxacin HCl * AdvReac Severe prolonged Verified 06/08/18 21:15 [From Cipro] QT desipramine AdvReac Severe prolonged Verified 06/08/18 21:15 QT diphenhydramine HCl * AdvReac Severe prolonged Verified 06/08/18 21:15 [From Benadryl] QT droperidol [From Inapsine] AdvReac Severe prolonged Verified 06/08/18 21:15 QT erythromycin base AdvReac Severe prolonged Verified 06/08/18 21:15 [Erythromycin Base] QT levofloxacin [From Levaquin] AdvReac Severe prolonged Verified 06/08/18 21:15 QT prochlorperazine edisylate * AdvReac Severe prolonged Verified 06/08/18 21:15 [From Compazine] qt prochlorperazine maleate * AdvReac Severe prolonged Verified 06/08/18 21:15 [From Compazine] qt sertraline AdvReac Severe prolonged Verified 06/08/18 21:15 QT Sulfa (Sulfonamide AdvReac Hallucinati Verified 06/08/18 21:15 Antibiotics) ons Review of Systems - Other Findings Other Findings: A comprehensive review of systems was performed the pertinent positives and negatives are stated above in the HPI and the remainder of the review of systems is negative. Prior Level of Functionality: The patient uses a walker to ambulate ever since her anoxic brain injury. She is dependent on her mother and sister for significant amount of care including some of her ADLs. Exam - Vital Signs Reviewed Vital Signs: Yes Vital Signs: Vital Signs x48h Temp Pulse Resp BP Pulse Ox 06/08/18 22:53 75 12 104/59 L 97 06/08/18 22:15 72 16 132/94 H 99 06/08/18 22:10 75 27 H 118/67 97 06/08/18 21:37 75 16 105/78 96 06/08/18 21:16 75 21 93/58 L 100 06/08/18 21:01 36.7 C 75 18 130/75 98 - Physical Exam General Appearance: positive: No acute distress, Alert, Anxious, Other (Obese) Eyes Bilateral: positive: Normal inspection, PERRL, EOMI, No lid inflammation, Conjunctivae nml, No scleral icterus ENT: positive: ENT inspection nml, Pharynx nml, Dry mucous membranes. negative: Purulent nasal drainage, Pharyngeal erythema, Oral lesions Neck: positive: Nml inspection, Thyroid nml, No JVD, Trachea midline. negative: Thyromegaly, Lymphadenopathy (R), Lymphadenopathy (L), Stiff neck, Carotid bruit, Tracheal deviation Respiratory: positive: Chest non-tender, No respiratory distress, Breath sounds nml. negative: Wheezes, Rales, Rhonchi Cardiovascular: positive: Regular rate & rhythm, No murmur, No gallop Peripheral Pulses: positive: 2+ Abdomen: positive: Non-tender, No organomegaly, Nml bowel sounds, No distention. negative: Guarding, Rebound, Hepatomegaly Back: positive: Nml inspection. negative: CVA tenderness (R), CVA tenderness (L) Skin: positive: Color nml, No rash, Warm, Dry. negative: Cyanosis, Pallor Extremities: positive: Non-tender, Full ROM, Nml appearance, No pedal edema Neurologic/Psychiatric: positive: Oriented x3, CN's nml (2-12), Motor nml, Sensation nml, Mood/affect nml Conclusion/Plan - Problem List (1) Chest pain Conclusion/Plan: The patient presents to the emergency department with chest pain. The patient's chest pain appears to be atypical. Likely the patient's chest pain is related t o GI symptoms with possible acid reflux. The patient did have an episode of diarrhea and nausea shortly after eating dinner. It is possible the patient may have had some food poisoning or a GI bug. The patient was mildly hypotensive and appeared dehydrated on examination. Given the patient's previous history of 2 cardiac arrests it was felt that the patient warranted at least a overnight observation stay with serial troponins to rule out acute coronary syndrome. Plan: Serial troponins x3 Telemetry monitoring Nitroglycerin when necessary for chest pain Aspirin Lipitor Echo IVF Qualifiers: Chest pain type: unspecified Qualified Code(s): R07.9 - Chest pain, unspecified (2) Anoxic brain injury Conclusion/Plan: The patient has a history of anoxic brain injury. Since the anoxic brain injury the patient has been having myoclonic S, requiring a walker and has been experiencing confusion. The patient has also had seizures. Currently the patient is on Keppra and Topamax for her seizures. We will continue these medications. (3) Anxiety and depression Conclusion/Plan: The patient has a history of anxiety and depression she takes Lorazepam and Pr ozac at home. We will continue these medications while she is hospitalized. The patient currently appears slightly anxious but mood appears to be stable. (4) History of cardiac arrest Conclusion/Plan: The patient has history of 2 cardiac arrest. Currently she has an AICD in place. The patient's AICD did not fire prior to this presentation. Given the patient's chest pain and history of cardiac arrests it is important that we laced the patient in observation and get serial troponins and echocardiogram. - Lab Results Lab results reviewed: Yes Fish Bones: 06/08/18 21:09 06/08/18 21:09 Other Lab Results: Laboratory Results WBC 7.4 x10^3/uL (4.8-10.8) 06/08/18 21:09 RBC 4.20 10^6/uL (4.20-5.40) 06/08/18 21:09 Hgb 13.1 g/dL (12.0-16.0) 06/08/18 21:09 Hct 38.8 % (37.0-47.0) 06/08/18 21:09 MCV 92.5 fL (81.0-99.0) 06/08/18 21:09 MCH 31.1 pg (27.0-31.0) H 06/08/18 21:09 MCHC 33.6 g/dL (32.0-36.0) 06/08/18 21:09 RDW 13.8 % (12.0-15.0) 06/08/18 21:09 Plt Count 278 10^3/uL (130-450) 06/08/18 21:09 MPV 8.0 fL (7.9-10.8) 06/08/18 21:09 Neut # (Auto) 3.1 10^3/uL (1.5-6.6) 06/08/18 21:09 Lymph # (Auto) 3.7 10^3/uL (1.5-3.5) H 06/08/18 21:09 [place] # (Auto) 0.4 10^3/uL (0.0-1.0) 06/08/18 21:09 Eos # (Auto) 0.1 10^3/uL (0.0-0.7) 06/08/18 21:09 Baso # (Auto) 0.1 10^3/uL (0.0-0.1) 06/08/18 21:09 Absolute Nucleated RBC 0.01 x10^3/uL 06/08/18 21:09 Nucleated RBC % 0.1 /100WBC 06/08/18 21:09 Sodium 139 mmol/L (135-145) 06/08/18 21:09 Potassium 3.8 mmol/L (3.5-5.0) 06/08/18 21:09 Chloride 107 mmol/L (101-111) 06/08/18 21:09 Carbon Dioxide 23 mmol/L (21-32) 06/08/18 21:09 Anion Gap 9.0 (6-13) 06/08/18 21:09 BUN 14 mg/dL (6-20) 06/08/18 21:09 Creatinine 0.7 mg/dL (0.4-1.0) 06/08/18 21:09 Estimated GFR (MDRD) 95 (>89) 06/08/18 21:09 Glucose 125 mg/dL (70-100) H 06/08/18 21:09 Calcium 9.2 mg/dL (8.5-10.3) 06/08/18 21:09 Total Bilirubin 0.6 mg/dL (0.2-1.0) 06/08/18 21:09 AST 22 IU/L (10-42) 06/08/18 21:09 ALT 24 IU/L (10-60) 06/08/18 21:09 Alkaline Phosphatase 89 IU/L (42-121) 06/08/18 21:09 Troponin I < 0.04 ng/mL (<0.49) 06/08/18 21:09 Total Protein 7.3 g/dL (6.7-8.2) 06/08/18 21:09 Albumin 4.3 g/dL (3.2-5.5) 06/08/18 21:09 Globulin 3.0 g/dL (2.1-4.2) 06/08/18 21:09 Albumin/Globulin Ratio 1.4 (1.0-2.2) 06/08/18 21:09 Lipase 44 U/L (22-51) 06/08/18 21:09 - Diagnostic Imaging Results Diagnostic Imaging Results: positive: Final report reviewed Diagnostic Imaging Results Comments: Chest CT Impression: Negative chest CT. No soft tissue mass seen in the chest. - EKG Results EKG Interpreted Independently: Yes EKG Comparison: Unchanged from prior EKG Core Measures - Anticipated LOS I expect patient to be DC'd or transferred within 96 hours.: Yes - DVT/VTE - Prophylaxis VTE/DVT Prophylaxis med ordered at admit?: Yes
[2018-06-09] MEDS: SODIUM CHLORIDE 0.9% 1,000 ML IV SCH ×2 (00:13→10:00)
[2018-06-09] MEDS ORDERED: ASPIRIN CHEW 81 MG TABLET ONE (00:23)
[2018-06-09] MEDS ORDERED: LORazepam 0.5 MG TABLET PO PRN (00:27)
[2018-06-09] MEDS: SODIUM CHLORIDE FLUSH 0.9% 10 ML SYRINGE IVP SCH ×2 (00:47→10:03)
[2018-06-09 04:16] LABS: BASOPHILS # (AUTO) 0.1 10^3/uL (0.0-0.1); BASOPHILS % (AUTO) 0.9 %; EOSINOPHILS # (AUTO) 0.1 10^3/uL (0.0-0.7); EOSINOPHILS % (AUTO) 1.7 %; HGB - HEMOGLOBIN 11.2 g/dL (12.0-16.0); LYMPHOCYTES # (AUTO) 3.7 10^3/uL (1.5-3.5); LYMPHOCYTES % (AUTO) 54.5 %; MEAN CORPUSCULAR HEMOGLOBIN 30.9 pg (27.0-31.0); MEAN CORPUSCULAR HGB CONC 33.1 g/dL (32.0-36.0); MEAN CORPUSCULAR VOLUME 93.4 fL (81.0-99.0); MEAN PLATELET VOLUME 7.9 fL (7.9-10.8); MONOCYTES # (AUTO) 0.5 10^3/uL (0.0-1.0); MONOCYTES % (AUTO) 7.3 %; NEUTROPHILS # (AUTO) 2.4 10^3/uL (1.5-6.6); NEUTROPHILS % (AUTO) 35.6 %; PLT - PLATELET COUNT 238 10^3/uL (130-450); RED BLOOD COUNT 3.63 10^6/uL (4.20-5.40); WHITE BLOOD COUNT 6.8 x10^3/uL (4.8-10.8)
[2018-06-09 04:34] LABS: ALBUMIN 3.5 g/dL (3.2-5.5); ALBUMIN/GLOBULIN RATIO 1.3 (1.0-2.2); ALKALINE PHOSPHATASE 74 IU/L (42-121); ALT ALANINE AMINOTRANSFERASE 21 IU/L (10-60); AST ASPARTATE AMINOTRANSFERASE 16 IU/L (10-42); BILIRUBIN,TOTAL 0.6 mg/dL (0.2-1.0); BUN - BLOOD UREA NITROGEN 15 mg/dL (6-20); CALCIUM 8.1 mg/dL (8.5-10.3); CARBON DIOXIDE - CO2 21 mmol/L (21-32); CHLORIDE 106 mmol/L (101-111); CHOL/HDL RATIO 4.9 (<4.4); CHOLESTEROL 172 mg/dL; CREATININE 0.8 mg/dL (0.4-1.0); GFR - MDRD 82 (>89); GLUCOSE 100 mg/dL (70-100); HDL CHOLESTEROL 35 mg/dL; LDL CHOLESTEROL,CALCULATED 117 mg/dL; LDL/HDL RATIO 3.3 (<4.4); SODIUM 138 mmol/L (135-145); TOTAL PROTEIN 6.1 g/dL (6.7-8.2); VLDL CHOLESTEROL 20 mg/dL
[2018-06-09] MEDS ORDERED: PANTOPRAZOLE 40 MG TABLET PO SCH (07:00)
[2018-06-09] MEDS ORDERED: POLYETHYLENE GLYCOL 3350 17 GM PACKET PO SCH (09:00)
[2018-06-09] MEDS ORDERED: ENOXAPARIN 40 MG/0.4 ML SYRINGE SUBQ SCH (09:00)
[2018-06-09] MEDS: ASPIRIN EC 81 MG TABLET PO SCH (10:02)
[2018-06-09 11:33] VITALS: BP 105/59
[2018-06-09] MEDS ORDERED: CALCIUM CARBONATE CHEW 500 MG TABLET PO SCH (12:00)
--- NOTE | 2018-06-09 12:27 | Discharge Plan ---
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 Your chest pain work up, including Serial Troponin, EKG, ECHO, are unremarkable. Tums are prescribed PRN for management of your heartburn. Should your symptoms return or worsen, you may present ER or call 911 for help. No Smoking: If you smoke, Please STOP! Call for help. Follow-up with: Luis Enrique Rzivi MD [Primary Care Provider] -
--- NOTE | 2018-06-09 12:35 | DISCHARGE SUMMARY ---
Discharge Summary Discharge Date: 06/09/18 Discharging Provider: KLINE Primary Care Provider: Luis Enrique Duran Condition at Discharge: Poor Discharge Disposition: 01 Home, Self Care Discharge Facility Name: home - DIAGNOSES Admission Diagnoses: (1) Chest pain (2) Anoxic brain injury (3) Anxiety and depression (4) History of cardiac arrest Discharge Diagnoses with Status of Each Condition: 1) Chest pain pt report burning sensation at middle of chest, improved after treatment. pt report her PCP stop her Protonix three weeks, since that, she developed chest burning. Serial troponin are negative, EKG and ECHO are unremarkable. pt is advised to continue home PPI and prescribed Tums follow up PCP (2) Anoxic brain injury stable, (3) Anxiety and depression stable, continue PCP management (4) History of cardiac arrest stable. - HPI History of Present Illness: refer from Dr. Mcclain's HPI on 06/08/18 as the following Patient is a very unfortunate 33-year-old female who has a past medical history significant for 2 cardiac arrests 1 in 2011 secondary to prolonged QT with torsades and more recently in 2017 leading to anoxic brain injury who now has a AICD, history of trisomy X, anxiety, depression, seizures, chronic migraines, myoclonic disorder, generalized anxiety disorder and panic attacks who presented to the emergency department with a chief complaint of chest pain. The patient states that she was in her normal state of health until just after dinner when she states that she had an episode of diarrhea. She states that after the diarrhea she went back to her table in the restaurant and did not feel well. She states that she felt nauseated and wanted to go home. She states that she paid the bill with her mother and was walking out of the restaurant with her walker. She states that she had to stop after a few steps as she began to have flashing in her visual hall. She states that she has been having this off and on since her anoxic brain injury last year but states that this was more bot hersome than normal. She states that she continued to remain nauseated finally she was able to get to her car but was having trouble answering questions at that point. She was also moving very slowly. She states that that point she began having a burning sensation below her left breast and tightness over her right breast and into her right shoulder. She states that when she got into the car she checked her blood pressure and it was around 90 systolic and her pulse was 80. She states that her chest discomfort continued until she was brought to the emergency department. She denies any diaphoresis, palpitations or any shortness of breath. She states that she did feel lightheaded. She denies any fevers or chills. She denies any cough. The patient denies any runny nose, sore throat, nasal congestion, difficulty swallowing, orthopnea, PND, increased lower extremity swelling, abdominal pain, vomiting, constipation, urinary urgency, urinary frequency, dysuria, joint swelling, muscle aches, back pain, neck stiffness, recent unintentional weight loss, changes in her appetite, polyuria, polydipsia, skin rash, skin changes, night sweats or any focal neurologic deficits. On presentation to the emergency department the patient was afebrile and vital signs are within normal limits. The patient's blood pressure did drop down to 93/58 while she was in the emergency department. In the emergency department the patient underwent routine lab work which showed a mildly elevated blood glucose of 125 but were otherwise within normal limits. The patient's troponin was less than 0.04 and EKG showed sinus rhythm without any ST elevations or ischemic changes. The patient underwent a CT of her chest which was negative. Given the patient's significant cardiac history the patient was placed in observation for chest pain. - HOSPITAL COURSE Hospital Course: pt was admitted for chest pain. pt reported to me chest burning at the middle of chest. pt report her PCP stop her Protonix three weeks, since that, she developed chest burning. Serial troponin are negative, EKG and ECHO are unremarkable. pt improved for chest burning, and ready to be d/c pt is advised to continue home PPI and prescribed Tums, follow up PCP - ALLERGIES Allergies/Adverse Reactions: Allergies Allergy/AdvReac Type Severity Reaction Status Date / Time azithromycin [From Zithromax] AdvReac Severe prolonged Verified 06/08/18 21:15 qt ciprofloxacin [From Cipro] AdvReac Severe prolonged Verified 06/08/18 21:15 QT ciprofloxacin HCl * AdvReac Severe prolonged Verified 06/08/18 21:15 [From Cipro] QT desipramine AdvReac Severe prolonged Verified 06/08/18 21:15 QT diphenhydramine HCl * AdvReac Severe prolonged Verified 06/08/18 21:15 [From Benadryl] QT droperidol [From Inapsine] AdvReac Severe prolonged Verified 06/08/18 21:15 QT erythromycin base AdvReac Severe prolonged Verified 06/08/18 21:15 [Erythromycin Base] QT levofloxacin [From Levaquin] AdvReac Severe prolonged Verified 06/08/18 21:15 QT prochlorperazine edisylate * AdvReac Severe prolonged Verified 06/08/18 21:15 [From Compazine] qt prochlorperazine maleate * AdvReac Severe prolonged Verified 06/08/18 21:15 [From Compazine] qt sertraline AdvReac Severe prolonged Verified 06/08/18 21:15 QT lactose AdvReac Intermediate Cramps Verified 06/09/18 11:16 Sulfa (Sulfonamide AdvReac Hallucinati Verified 06/08/18 21:15 Antibiotics) ons - MEDICATIONS Home Medications: Ambulatory Orders Medication Instructions Recorded Confirmed Ascorbic Acid [C-500] 1 tab PO DAILY 05/21/14 12/10/16 Ferrous Gluconate 1 tab PO BID 05/21/14 12/10/16 LORazepam [Lorazepam] 0.5 mg PO TID PRN 05/21/14 12/10/16 Ezra Cit/Mag/D3/Zn/Esthetician And Manager [employer]/[place]/Bor 1 tab BID 12/10/16 12/10/16 [Citracal-Vit D + Magnesium Tab] Cholecalciferol (Vitamin D3) 1,000 units BID 12/10/16 12/10/16 [Vitamin D3] FLUoxetine [PROzac] 30 mg PO DAILY 12/10/16 12/10/16 Magnesium 500 mg PO DAILY 12/10/16 12/10/16 Ubidecarenone [Co Q-10] 50 mg BID 12/10/16 12/10/16 Acetaminophen [Tylenol Extra 250 mg PO PRN PRN 04/03/18 04/03/18 Strength] Aspirin 162 mg PO PRN PRN 04/03/18 04/03/18 Docusate Sodium 250Mg Capsule 250 mg PO BID 04/03/18 04/03/18 [Colace 250Mg Capsule] Ibuprofen 600 mg PO PRN PRN 04/03/18 04/03/18 Levetiracetam [Keppra] 1,500 mg PO BID 04/03/18 04/03/18 Pantoprazole [Protonix] 40 mg PO DAILY 04/03/18 04/03/18 Propranolol [Inderal] 10 mg PO TID 04/03/18 04/03/18 Simethicone [Gas Relief] PRN 04/03/18 Topiramate [Topamax] 25 mg PO BID 04/03/18 04/03/18 Calcium Carbonate [Tums (Calcium 500 mg PO BID PRN #20 tablet 06/09/18 Carbonate 500mg)] - PHYSICAL EXAM AT DISCHARGE General Appearance: positive: No acute distress, Alert. negative: Lethargic Eyes Bilateral: positive: Normal inspection, PERRL, No lid inflammation, Conjunctivae nml ENT: positive: ENT inspection nml, Pharynx nml, No signs of dehydration. negative: Purulent nasal drainage, Pharyngeal erythema, Oral lesions Neck: positive: Nml inspection, Thyroid nml, No JVD, Trachea midline. negative: Thyromegaly, Lymphadenopathy (R), Lymphadenopathy (L), Stiff neck, Swelling/bruising, Tracheal deviation Respiratory: positive: Chest non-tender, No respiratory distress, Breath sounds nml. negative: Wheezes, Rales, Rhonchi Cardiovascular: positive: Regular rate & rhythm, No murmur, No gallop. negative: Irregularly irregular, Extrasystoles, Tachycardia, Bradycardia, JVD present, Systolic murmur, Diastolic murmur Peripheral Pulses: positive: 2+ Abdomen: positive: Non-tender, No organomegaly, Nml bowel sounds, No distention. negative: Tenderness, Guarding, Rebound Back: positive: Nml inspection. negative: CVA tenderness (R), CVA tenderness (L) Skin: positive: Color nml, No rash, Warm, Dry. negative: Cyanosis, Diaphoresis, Pallor Extremities: positive: Non-tender, Full ROM, Nml appearance. negative: Calf tenderness, Joint swelling, Arun's sign/cords, Other Neurologic/Psychiatric: positive: Oriented x3, Motor nml, Sensation nml, Mood/affect nml. 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 Your chest pain work up, including Serial Troponin, EKG, ECHO, are unremarkable. Tums are prescribed PRN for management of your heartburn. Should your symptoms return or worsen, you may present ER or call 911 for help. - TIME SPENT Time Spent in Discharge (Minutes): 45
[2018-06-09] MEDS ORDERED: ATORVASTATIN 40 MG TABLET PO SCH (21:00)
== END 2018-06-09 13:18 | disposition home or self-care (01) ==
LOC: ED 20:51 → OBS 22:43
PROVIDERS: ADMIT Internal Medicine; ATTEND Nurse Practitioner Gerontology
DX: R07.89 Other chest pain (principal); G93.1 Anoxic brain damage, not elsewhere classified; K21.9 Gastro-esophageal reflux disease without esophagitis; Z95.810 Presence of automatic (implantable) cardiac defibrillator; Q92.8 Other specified trisomies and partial trisomies of autosomes; G25.3 Myoclonus; E86.0 Dehydration; F32.9 Major depressive disorder, single episode, unspecified; F41.0 Panic disorder [episodic paroxysmal anxiety]; G43.909 Migraine, unspecified, not intractable, without status migrainosus; R42 Dizziness and giddiness; R19.7 Diarrhea, unspecified; G40.909 Epilepsy, unspecified, not intractable, without status epilepticus; F41.9 Anxiety disorder, unspecified; Z86.74 Personal history of sudden cardiac arrest; R56.9 Unspecified convulsions; E87.6 Hypokalemia; E66.9 Obesity, unspecified; D64.9 Anemia, unspecified; Z51.81 Encounter for therapeutic drug level monitoring
CPT/HCPCS: 36415; 71260; 80050; 80053; 80061; 82728; 83540; 83690; 83880; 84466; 84484; 85025; 93005; 93306; 96365; 96372; 99284; A9270; G0378; J1650; Q9967; 83721

== ENCOUNTER 2018-09-17 08:00 | Outpatient (CLI) | payer MEDICAID | END 2018-09-17 23:59 | disposition home or self-care (01) | LOC: LAB.N 08:00 | PROVIDERS: ATTEND Psychiatry & Neurology Neurology | DX: G25.3 Myoclonus (principal); G43.719 Chronic migraine without aura, intractable, without status migrainosus | CPT/HCPCS: 36415; 80177; 80201; 81599 ==

== ENCOUNTER 2018-12-21 07:33 | Outpatient (CLI) | payer MEDICAID ==
--- NOTE | 2018-12-21 10:50 | Ultrasound Report ---
Reason: ABDOMINAL PAIN,ACUTE,GERD Procedure Date: 12/21/2018 Accession Number: [id number] / [id number] Procedure: US - Abdomen Complete CPT Code: FULL RESULT: EXAM: ABDOMEN ULTRASOUND EXAM DATE: 12/21/2018 08:58 AM. CLINICAL HISTORY: Acute abdominal pain, GERD. COMPARISON: CT chest with contrast 06/08/2018. TECHNIQUE: Real-time scanning was performed with static images obtained. FINDINGS: Liver: Mildly heterogeneous slightly increased in echotexture, suggesting steatosis. 16.6 cm. Main portal vein flow: Hepatopetal. Gallbladder: Surgically absent. Biliary System: Common bile duct measures 8.2 mm. No intrahepatic or extrahepatic ductal dilatation. Pancreas: Visualized portion is unremarkable. Diffusely and heterogeneously hyperechoic suggesting fatty infiltration. Kidneys: Right: 10.8 cm longitudinally. Normal. No contour-deforming mass, stones, or hydronephrosis. Left: 10.8 cm longitudinally. Normal. No contour-deforming mass, stones, or hydronephrosis. Spleen: 12.2 x 5.3 x 4.9 cm. Normal in size and echotexture. Aorta and Inferior Vena Cava: Unremarkable. Other: There is a homogeneously hyperechoic nonvascular mass measuring 5 x 2 x 2.2 cm which superimposes anterior to the common bile duct, lateral to the head of the pancreas and medial to the gallbladder fossa. There is no correlate finding on comparison CT of 06/08/2018. IMPRESSION: 1. Probable mild hepatic steatosis. 2. Nonspecific 5 cm hyperechoic/nonvascular mass adjacent to the gallbladder fossa. True mass versus artifact from bowel and/or fat is primary differential consideration. Recommend definitive characterization with abdominal CT. RADIA
== END 2018-12-21 07:34 | disposition home or self-care (01) ==
LOC: DI 07:33
PROVIDERS: ATTEND Nurse Practitioner
DX: R10.9 Unspecified abdominal pain (principal); K21.9 Gastro-esophageal reflux disease without esophagitis; R19.01 Right upper quadrant abdominal swelling, mass and lump
CPT/HCPCS: 76700

== ENCOUNTER 2018-12-26 16:58 | Outpatient (CLI) | payer MEDICAID | END 2018-12-26 16:59 | disposition short-term general hospital (02) | LOC: EMS 16:58 | PROVIDERS: ATTEND Surgery | DX: R41.0 Disorientation, unspecified (principal); R42 Dizziness and giddiness ==

== ENCOUNTER 2019-01-18 08:00 | Outpatient (CLI) | payer MEDICAID ==
[2019-01-18 19:19] LABS: CALCIUM 9.3 mg/dL (8.5-10.3); CREATININE 0.7 mg/dL (0.4-1.0)
[2019-01-18 19:43] LABS: HCG,QUALITATIVE BLOOD NEGATIVE
== END 2019-01-18 23:59 | disposition home or self-care (01) ==
LOC: LAB.N 08:00
PROVIDERS: ATTEND Nurse Practitioner Gerontology
DX: R10.9 Unspecified abdominal pain (principal)
CPT/HCPCS: 36415; 80048; 84703

== ENCOUNTER 2019-01-20 08:02 | Outpatient (CLI) | payer MEDICAID ==
[2019-01-20] MEDS ORDERED: IOVERSOL 320 50 ML VIAL ONE (08:13)
[2019-01-20] MEDS ORDERED: IOVERSOL 320 100 ML VIAL IVP ONE ×2 (08:13→17:58)
--- NOTE | 2019-01-20 10:05 | CT Report ---
Reason: ABDOMINAL MASS, ABDOMINAL PAIN, ACUTE. Procedure Date: 01/20/2019 Accession Number: [id number] Procedure: CT - Abdomen/Pelvis W CPT Code: FULL RESULT: EXAM: CT ABDOMEN AND PELVIS EXAM DATE: 01/20/2019 09:51 AM. CLINICAL HISTORY: Abdominal pain. History of cholecystectomy COMPARISONS: None. TECHNIQUE: Routine helical CT imaging was performed through the abdomen and pelvis. IV contrast: . Enteric contrast: No. Reconstructions: Coronal and sagittal. In accordance with CT protocol optimization, one or more of the following dose reduction techniques were utilized for this exam: automated exposure control, adjustment of mA and/or KV based on patient size, or use of iterative reconstructive technique. FINDINGS: Lung Bases: Unremarkable. Liver: Normal. No masses. Gallbladder/Bile Ducts: Cholecystectomy. No biliary dilatation. Spleen: Normal. Pancreas: Normal. Adrenal Glands: Normal. Kidneys: Normal. No masses or hydronephrosis. Peritoneal Cavity/Bowel: Normal. No free fluid, free air or adenopathy. No masses or acute inflammatory process. The appendix is well visualized and normal. Pelvic Organs: Appropriately positioned IUD. Normal examination. The bladder and visualized pelvic organs are within normal limits. Vasculature: No aneurysms or other significant abnormality. Bones: No significant abnormality. Other: None. IMPRESSION: 1. Status post cholecystectomy. No biliary dilatation. 2. Otherwise normal examination. [facility]
[2019-01-20] MEDS ORDERED: IOVERSOL 320 50 ML VIAL PO ONE (17:58)
== END 2019-01-20 08:03 | disposition home or self-care (01) ==
LOC: DI 08:02
PROVIDERS: ATTEND Nurse Practitioner Gerontology
DX: R10.9 Unspecified abdominal pain (principal); R19.00 Intra-abdominal and pelvic swelling, mass and lump, unspecified site; Z90.49 Acquired absence of other specified parts of digestive tract
CPT/HCPCS: 74177; Q9967

== ENCOUNTER 2019-02-06 13:51 | Outpatient (CLI) | payer MEDICAID | END 2019-02-06 13:52 | disposition critical access hospital (66) | LOC: EMS 13:51 | PROVIDERS: ATTEND Surgery | DX: R45.851 Suicidal ideations (principal) | CPT/HCPCS: A0425; A0429; A0999 ==

== ENCOUNTER 2019-02-06 14:13 | Emergency (ER) | payer MEDICAID ==
[2019-02-06 15:03] LABS: BASOPHILS # (AUTO) 0.1 10^3/uL (0.0-0.1); BASOPHILS % (AUTO) 1.2 %; EOSINOPHILS # (AUTO) 0.1 10^3/uL (0.0-0.7); EOSINOPHILS % (AUTO) 1.9 %; LYMPHOCYTES # (AUTO) 2.3 10^3/uL (1.5-3.5); LYMPHOCYTES % (AUTO) 41.3 %; MEAN CORPUSCULAR HEMOGLOBIN 30.8 pg (27.0-31.0); MEAN CORPUSCULAR HGB CONC 31.8 g/dL (32.0-36.0); MEAN CORPUSCULAR VOLUME 96.7 fL (81.0-99.0); MEAN PLATELET VOLUME 10.3 fL (7.9-10.8); MONOCYTES # (AUTO) 0.5 10^3/uL (0.0-1.0); NEUTROPHILS # (AUTO) 2.7 10^3/uL (1.5-6.6); NEUTROPHILS % (AUTO) 47.4 %; PLT - PLATELET COUNT 218 10^3/uL (130-450); RED CELL DISTRIBUTION WIDTH 12.8 % (12.0-15.0); WHITE BLOOD COUNT 5.7 x10^3/uL (4.8-10.8)
[2019-02-06 15:21] LABS: ACETAMINOPHEN < 10 ug/mL (10-30); ALBUMIN 3.9 g/dL (3.2-5.5); ALBUMIN/GLOBULIN RATIO 1.3 (1.0-2.2); ALKALINE PHOSPHATASE 90 IU/L (42-121); ALT ALANINE AMINOTRANSFERASE 37 IU/L (10-60); AST ASPARTATE AMINOTRANSFERASE 20 IU/L (10-42); BILIRUBIN,TOTAL 0.9 mg/dL (0.2-1.0); BUN - BLOOD UREA NITROGEN 12 mg/dL (6-20); CALCIUM 9.3 mg/dL (8.5-10.3); CARBON DIOXIDE - CO2 26 mmol/L (21-32); CHLORIDE 107 mmol/L (101-111); CREATININE 0.8 mg/dL (0.4-1.0); GFR - MDRD 82 (>89); GLUCOSE 93 mg/dL (70-100); LIPASE 37 U/L (22-51); MAGNESIUM 2.2 mg/dL (1.7-2.8); SALICYLATE < 6.0 mg/dL; SODIUM 140 mmol/L (135-145); TOTAL PROTEIN 6.9 g/dL (6.7-8.2)
--- NOTE | 2019-02-06 15:25 | ED Physician Documentation ---
PD HPI MHE - Stated complaint Stated Complaint: SI - Chief complaint Chief Complaint: MHE - History obtained from History obtained from: Patient - History of Present Illness Primary symptom: Suicidal ideation Timing - onset: Today Contributing factors: Family Similar symptoms before: Diagnosis (depression with SI) Recently seen: Not recently seen Review of Systems Constitutional: denies: Fever, Chills, Myalgias Eyes: denies: Decreased vision Ears: denies: Ear pain Nose: denies: Congestion Throat: denies: Sore throat Cardiac: denies: Chest pain / pressure, Palpitations Respiratory: denies: Dyspnea, Cough GI: reports: Diarrhea. denies: Abdominal Pain, Nausea, Vomiting : denies: Dysuria PD PAST MEDICAL HISTORY - Past Medical History Past Medical History: Yes Cardiovascular: [place], Arrhythmia, Other Neuro: Headaches, Seizure disorder, Other GI: GERD Psych: Depression, Anxiety, Panic attacks - Past Surgical History Past Surgical History: Yes General: Cholecystectomy, EGD Cardiovascular: Pacemaker - Present Medications Home Medications: Ambulatory Orders Medication Instructions Recorded Confirmed Ascorbic Acid [C-500] 1 tab PO DAILY 05/21/14 12/10/16 Ferrous Gluconate 1 tab PO BID 05/21/14 12/10/16 LORazepam [Lorazepam] 0.5 mg PO TID PRN 05/21/14 12/10/16 Ezra Cit/Mag/D3/Zn/[place]/Bor 1 tab BID 12/10/16 12/10/16 [Citracal-Vit D + Magnesium Tab] Cholecalciferol (Vitamin D3) 1,000 units BID 12/10/16 12/10/16 [Vitamin D3] FLUoxetine [PROzac] 30 mg PO DAILY 12/10/16 12/10/16 Magnesium 500 mg PO DAILY 12/10/16 12/10/16 Ubidecarenone [Co Q-10] 50 mg BID 12/10/16 12/10/16 Acetaminophen [Tylenol Extra 250 mg PO PRN PRN 04/03/18 04/03/18 Strength] Aspirin 162 mg PO PRN PRN 04/03/18 04/03/18 Docusate Sodium 250Mg Capsule 250 mg PO BID 04/03/18 04/03/18 [Colace 250Mg Capsule] Ibuprofen 600 mg PO PRN PRN 04/03/18 04/03/18 Levetiracetam [Keppra] 1,500 mg PO BID 04/03/18 04/03/18 Pantoprazole [Protonix] 40 mg PO DAILY 04/03/18 04/03/18 Propranolol [Inderal] 10 mg PO TID 04/03/18 04/03/18 Simethicone [Gas Relief] PRN 04/03/18 Topiramate [Topamax] 25 mg PO BID 04/03/18 04/03/18 Calcium Carbonate [Tums (Calcium 500 mg PO BID PRN #20 tablet 06/09/18 Carbonate 500mg)] - Allergies Allergies/Adverse Reactions: Allergies Allergy/AdvReac Type Severity Reaction Status Date / Time azithromycin [From Zithromax] AdvReac Severe prolonged Verified 02/06/19 14:24 qt ciprofloxacin [From Cipro] AdvReac Severe prolonged Verified 02/06/19 14:24 QT ciprofloxacin HCl * AdvReac Severe prolonged Verified 02/06/19 14:24 [From Cipro] QT desipramine AdvReac Severe prolonged Verified 02/06/19 14:24 QT diphenhydramine HCl * AdvReac Severe prolonged Verified 02/06/19 14:24 [From Benadryl] QT droperidol [From Inapsine] AdvReac Severe prolonged Verified 02/06/19 14:24 QT erythromycin base AdvReac Severe prolonged Verified 02/06/19 14:24 [Erythromycin Base] QT levofloxacin [From Levaquin] AdvReac Severe prolonged Verified 02/06/19 14:24 QT prochlorperazine edisylate * AdvReac Severe prolonged Verified 02/06/19 14:24 [From Compazine] qt prochlorperazine maleate * AdvReac Severe prolonged Verified 02/06/19 14:24 [From Compazine] qt sertraline AdvReac Severe prolonged Verified 02/06/19 14:24 QT lactose AdvReac Intermediate Cramps Verified 02/06/19 14:24 Sulfa (Sulfonamide AdvReac Hallucinati Verified 02/06/19 14:24 Antibiotics) ons - Social History Does the pt smoke?: No Smoking Status: Never smoker Does the pt drink ETOH?: No Does the pt have substance abuse?: No - Immunizations Immunizations are current?: Yes - POLST Patient has POLST: No POLST Status: Full Code PD ED PE NORMAL - Vitals Vital signs reviewed: Yes (hypertensive diastolic mild ) - General General: Alert and oriented X 3, No acute distress, Well developed/nourished - HEENT HEENT: Atraumatic, PERRL, EOMI, Ears normal, Other (dry mucous membranes ) - Neck Neck: Supple, no meningeal sign, No bony TTP - Cardiac Cardiac: RRR, No murmur - Respiratory Respiratory: No respiratory distress, Clear bilaterally - Abdomen Abdomen: Normal bowel sounds, Soft, Non tender, Non distended, No organomegaly - Back Back: No CVA TTP, No spinal TTP - Derm Derm: Normal color, Warm and dry, Other (There are pick guerrero on the upper ext and the abdomen. There are a lot of pick guerrero. ) - Extremities Extremities: No deformity, No edema - Neuro Neuro: Alert and oriented X 3, dispensing optician apprentice 2-12 intact, No motor deficit, No sensory deficit, Other (There is a delay in execution of motor commands. ) Eye Opening: Spontaneous Motor: Obeys Commands Verbal: Oriented GCS Score: 15 - Psych Psych: Other (mood is defeated and the affect is slow ) Results - Vitals Vitals: Vital Signs - 24 hr 02/06/19 14:14 Temperature 36.1 C L Heart Rate 76 Respiratory 16 Rate Blood Pressure 118/82 H O2 Saturation 98 Oxygen O2 Source Room air - EKG (time done) 1416 Rate: Rate (enter#) (75) Rhythm: Paced Intervals: No: Prolonged QT Compare to prior EKG: Unchanged from prior EKG (SPT 06-08-18 no sig change) Computer interpretation: Agree with computer - Labs Labs: Laboratory Tests 02/06/19 02/06/19 02/06/19 14:50 14:50 14:50 WBC 5.7 RBC 3.90 L Hgb 12.0 Hct 37.7 MCV 96.7 MCH 30.8 MCHC 31.8 L RDW 12.8 Plt Count 218 MPV 10.3 Neut # (Auto) 2.7 Lymph # (Auto) 2.3 [place] # (Auto) 0.5 Eos # (Auto) 0.1 Baso # (Auto) 0.1 Absolute Nucleated RBC 0.00 Nucleated RBC % 0.0 Sodium 140 Potassium 3.9 Chloride 107 Carbon Dioxide 26 Anion Gap 7.0 BUN 12 Creatinine 0.8 Estimated GFR (MDRD) 82 L Glucose 93 Calcium 9.3 Magnesium 2.2 Total Bilirubin 0.9 AST 20 ALT 37 Alkaline Phosphatase 90 Total Protein 6.9 Albumin 3.9 Globulin 3.0 Albumin/Globulin Ratio 1.3 Lipase 37 TSH 1.11 Urine Color Urine Clarity Urine pH Ur Specific [place] Urine Protein Urine Glucose (UA) Urine Ketones Urine Occult Blood Urine Nitrite Urine Bilirubin Urine Urobilinogen Ur Leukocyte Esterase Ur Microscopic Review Urine Culture Comments Urine HCG, Qual Salicylates < 6.0 Acetaminophen < 10 L Ethyl Alcohol < 5.0 02/06/19 15:29 WBC RBC Hgb Hct MCV MCH MCHC RDW Plt Count MPV Neut # (Auto) Lymph # (Auto) [place] # (Auto) Eos # (Auto) Baso # (Auto) Absolute Nucleated RBC Nucleated RBC % Sodium Potassium Chloride Carbon Dioxide Anion Gap BUN Creatinine Estimated GFR (MDRD) Glucose Calcium Magnesium Total Bilirubin AST ALT Alkaline Phosphatase Total Protein Albumin Globulin Albumin/Globulin Ratio Lipase TSH Urine Color YELLOW Urine Clarity CLEAR Urine pH 8.5 H Ur Specific [place] 1.010 Urine Protein NEGATIVE Urine Glucose (UA) NEGATIVE Urine Ketones NEGATIVE Urine Occult Blood NEGATIVE Urine Nitrite NEGATIVE Urine Bilirubin NEGATIVE Urine Urobilinogen 0.2 (NORMAL) Ur Leukocyte Esterase NEGATIVE Ur Microscopic Review NOT INDICATED Urine Culture Comments NOT INDICATED Urine HCG, Qual NEGATIVE Salicylates Acetaminophen Ethyl Alcohol PD MEDICAL DECISION MAKING - ED course Complexity details: reviewed old records, reviewed results, re-evaluated patient, considered differential, d/w patient ED course: 33 y/o female with a history of depression has an increase in symptoms and is suicidal today after her mother berated her over the cat throwing up in the house and the patient waiting until after breakfast to clean it up. The patient has resources and the elementary school social worker is consulted in the case and evaluates the patient in the ED and finds her competent and able to do follow up. She does not need to be detained. Departure - Departure Disposition: 01 Home, Self Care Clinical Impression: Anxiety and depression Condition: Stable Instructions: ED Stress React, ED Depression Follow-Up: [facility] [Provider Group]
[2019-02-06 15:33] LABS: BILIRUBIN,URINE NEGATIVE (NEGATIVE); GLUCOSE, URINE (UA) NEGATIVE (NEGATIVE); KETONES,URINE (UA) NEGATIVE (NEGATIVE); LEUKOCYTE ESTERASE, URINE NEGATIVE (NEGATIVE); NITRITE,URINE NEGATIVE (NEGATIVE); OCCULT BLOOD,URINE NEGATIVE (NEGATIVE); PH,URINE 8.5 PH (5.0-7.5); PROTEIN,URINE NEGATIVE (NEGATIVE); UROBILINOGEN,URINE 0.2 (NORMAL) E.U./dL (NORMAL)
[2019-02-06 15:36] LABS: CLARITY,URINE CLEAR (CLEAR); HCG UR QUAL NEGATIVE
[2019-02-06 17:10] VITALS: BP 122/95
== END 2019-02-06 17:10 | disposition home or self-care (01) ==
LOC: EDUNIT# → ED 14:13
DX: F32.9 Major depressive disorder, single episode, unspecified (principal); F41.9 Anxiety disorder, unspecified; R45.851 Suicidal ideations; Z95.0 Presence of cardiac pacemaker; Z79.82 Long term (current) use of aspirin
CPT/HCPCS: 36415; 80053; 80307; 80320; 80329; 81001; 81003; 81025; 83690; 83735; 84443; 85025; 87086; 93005; 99283

== ENCOUNTER 2019-02-09 17:56 | Outpatient (CLI) | payer MEDICAID | END 2019-02-09 18:17 | disposition critical access hospital (66) | LOC: EMS 17:56 | PROVIDERS: ATTEND Surgery | DX: R56.9 Unspecified convulsions (principal); R41.0 Disorientation, unspecified; R53.83 Other fatigue; H53.8 Other visual disturbances | CPT/HCPCS: A0425; A0429; A0999 ==

== ENCOUNTER 2019-02-09 18:24 | Emergency (ER) | payer MEDICAID ==
[2019-02-09] MEDS ORDERED: LORazepam 2 MG/ML VIAL IVP STA (18:30)
[2019-02-09 18:45] LABS: BASOPHILS # (AUTO) 0.1 10^3/uL (0.0-0.1); EOSINOPHILS # (AUTO) 0.1 10^3/uL (0.0-0.7); EOSINOPHILS % (AUTO) 1.5 %; LYMPHOCYTES # (AUTO) 2.9 10^3/uL (1.5-3.5); LYMPHOCYTES % (AUTO) 41.9 %; MEAN CORPUSCULAR HEMOGLOBIN 31.5 pg (27.0-31.0); MEAN CORPUSCULAR HGB CONC 32.5 g/dL (32.0-36.0); MEAN CORPUSCULAR VOLUME 96.9 fL (81.0-99.0); MONOCYTES # (AUTO) 0.4 10^3/uL (0.0-1.0); NEUTROPHILS # (AUTO) 3.4 10^3/uL (1.5-6.6); NEUTROPHILS % (AUTO) 49.3 %; PLT - PLATELET COUNT 244 10^3/uL (130-450); RED BLOOD COUNT 3.81 10^6/uL (4.20-5.40); RED CELL DISTRIBUTION WIDTH 12.7 % (12.0-15.0); WHITE BLOOD COUNT 6.9 x10^3/uL (4.8-10.8)
[2019-02-09 18:59] LABS: ALBUMIN 4.1 g/dL (3.2-5.5); ALBUMIN/GLOBULIN RATIO 1.4 (1.0-2.2); BILIRUBIN,TOTAL 0.7 mg/dL (0.2-1.0); CALCIUM 9.3 mg/dL (8.5-10.3); CREATININE 0.7 mg/dL (0.4-1.0)
[2019-02-09 19:12] LABS: BILIRUBIN,URINE NEGATIVE (NEGATIVE); GLUCOSE, URINE (UA) NEGATIVE (NEGATIVE); KETONES,URINE (UA) NEGATIVE (NEGATIVE); LEUKOCYTE ESTERASE, URINE NEGATIVE (NEGATIVE); NITRITE,URINE NEGATIVE (NEGATIVE); OCCULT BLOOD,URINE NEGATIVE (NEGATIVE); PH,URINE 7.5 PH (5.0-7.5); PROTEIN,URINE NEGATIVE (NEGATIVE); UROBILINOGEN,URINE 0.2 (NORMAL) E.U./dL (NORMAL)
[2019-02-09 19:14] VITALS: BP 128/79
[2019-02-09 19:14] LABS: CLARITY,URINE CLEAR (CLEAR)
[2019-02-09 19:15] LABS: HCG UR QUAL NEGATIVE
[2019-02-09] MEDS ORDERED: levETIRAcetam 250 MG TABLET PO STA (19:28)
--- NOTE | 2019-02-09 19:30 | ED Physician Documentation ---
History of Present Illness - Stated complaint Stated Complaint: SZ, SLURRED SPEECH - Chief complaint Chief Complaint: General - History obtained from History obtained from: Patient, EMS - History of Present Illness Timing: How many days ago (3) Pain level max: 0 Pain level now: 0 - Additonal information Additional information: 33-year-old female has had an anoxic brain injury in the past. 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 She does not go unconscious with these but does have shaking of her limbs. She is maintained on Topamax, Keppra and Ativan. She states during the last 3 afternoon she has had an increase in activity. Has called her doctor and neurologist but has not heard back. She denies any injuries. No pain. No headache. No neck pain. No fevers. No cough. No vomiting. No diarrhea. No constipation. No possibility of . Patient states that she also feels "slow". She states sometimes it is hard to find words. Review of Systems Constitutional: denies: Fever, Chills Cardiac: denies: Chest pain / pressure Respiratory: denies: Cough GI: denies: Vomiting, Diarrhea Skin: denies: Rash Musculoskeletal: denies: Neck pain, Back pain PD PAST MEDICAL HISTORY - Past Medical History Past Medical History: Yes Cardiovascular: [place], Arrhythmia, Other Neuro: Headaches, Seizure disorder, Other GI: GERD Psych: Depression, Anxiety, Panic attacks Other Past Medical History: cardiac arrest 2016 - Past Surgical History Past Surgical History: Yes General: Cholecystectomy, EGD Cardiovascular: Pacemaker - Present Medications Home Medications: Ambulatory Orders Medication Instructions Recorded Confirmed Ascorbic Acid [C-500] 1 tab PO DAILY 05/21/14 12/10/16 Ferrous Gluconate 1 tab PO BID 05/21/14 12/10/16 LORazepam [Lorazepam] 0.5 mg PO Q12H PRN 05/21/14 12/10/16 Ezra Cit/Mag/D3/Zn/Thermal Surfacing Machine Operator/[place]/Bor 1 tab BID 12/10/16 12/10/16 [Citracal-Vit D + Magnesium Tab] Cholecalciferol (Vitamin D3) 1,000 units BID 12/10/16 12/10/16 [Vitamin D3] Magnesium 500 mg PO DAILY 12/10/16 12/10/16 Ubidecarenone [Co Q-10] 50 mg BID 12/10/16 12/10/16 Acetaminophen [Tylenol Extra 250 mg PO PRN PRN 04/03/18 04/03/18 Strength] Aspirin 162 mg PO PRN PRN 04/03/18 04/03/18 Docusate Sodium 250Mg Capsule 250 mg PO BID 04/03/18 04/03/18 [Colace 250Mg Capsule] Ibuprofen 600 mg PO PRN PRN 04/03/18 04/03/18 Levetiracetam [Keppra] 1,500 mg PO BID 04/03/18 04/03/18 Pantoprazole [Protonix] 40 mg PO DAILY 04/03/18 04/03/18 Propranolol [Inderal] 10 mg PO TID 04/03/18 04/03/18 Simethicone [Gas Relief] PRN 04/03/18 Topiramate [Topamax] 25 mg PO BID 04/03/18 04/03/18 Calcium Carbonate [Tums (Calcium 500 mg PO BID PRN #20 tablet 06/09/18 Carbonate 500mg)] DULoxetine [Cymbalta] 30 mg BID 02/09/19 02/09/19 LORazepam [Ativan] 0.25 mg 02/09/19 Levonorgestrel [Kyleena] 1 02/09/19 hydrOXYzine HCl [Hydroxyzine HCl] 25 mg TID PRN 02/09/19 02/09/19 raNITIdine [Zantac] 150 mg DAILY 02/09/19 02/09/19 - Allergies Allergies/Adverse Reactions: Allergies Allergy/AdvReac Type Severity Reaction Status Date / Time azithromycin [From Zithromax] AdvReac Severe prolonged Verified 02/09/19 18:46 qt ciprofloxacin [From Cipro] AdvReac Severe prolonged Verified 02/09/19 18:46 QT ciprofloxacin HCl * AdvReac Severe prolonged Verified 02/09/19 18:46 [From Cipro] QT desipramine AdvReac Severe prolonged Verified 02/09/19 18:46 QT diphenhydramine HCl * AdvReac Severe prolonged Verified 02/09/19 18:46 [From Benadryl] QT droperidol [From Inapsine] AdvReac Severe prolonged Verified 02/09/19 18:46 QT erythromycin base AdvReac Severe prolonged Verified 02/09/19 18:46 [Erythromycin Base] QT levofloxacin [From Levaquin] AdvReac Severe prolonged Verified 02/09/19 18:46 QT prochlorperazine edisylate * AdvReac Severe prolonged Verified 02/09/19 18:46 [From Compazine] qt prochlorperazine maleate * AdvReac Severe prolonged Verified 02/09/19 18:46 [From Compazine] qt sertraline AdvReac Severe prolonged Verified 02/09/19 18:46 QT lactose AdvReac Intermediate Cramps Verified 02/09/19 18:46 Sulfa (Sulfonamide AdvReac Hallucinati Verified 02/09/19 18:46 Antibiotics) ons - Social History Does the pt smoke?: No Smoking Status: Never smoker Does the pt drink ETOH?: No Does the pt have substance abuse?: No - Immunizations Immunizations are current?: Yes - POLST Patient has POLST: No POLST Status: Full Code PD ED PE NORMAL - Vitals Vital signs reviewed: Yes - General General: Alert and oriented X 3, No acute distress, Well developed/nourished - HEENT HEENT: PERRL, Moist mucous membranes - Neck Neck: Supple, no meningeal sign - Cardiac Cardiac: RRR, Strong equal pulses - Respiratory Respiratory: No respiratory distress, Clear bilaterally - Abdomen Abdomen: Soft, Non tender, Non distended - Derm Derm: Warm and dry - Extremities Extremities: No calf tenderness / cord - Neuro Neuro: Alert and oriented X 3, chemical blender 2-12 intact, No motor deficit, No sensory deficit, Normal speech - Psych Psych: Normal mood, Normal affect Results - Vitals Vitals: Vital Signs - 24 hr 02/09/19 02/09/19 18:20 19:00 Temperature 36.3 C L Heart Rate 76 75 Respiratory 14 18 Rate Blood Pressure 137/64 H 128/79 O2 Saturation 100 94 Oxygen O2 Source Room air - Labs Labs: Laboratory Tests 02/09/19 02/09/19 02/09/19 18:40 18:40 19:09 WBC 6.9 RBC 3.81 L Hgb 12.0 Hct 36.9 L MCV 96.9 MCH 31.5 H MCHC 32.5 RDW 12.7 Plt Count 244 MPV 10.0 Neut # (Auto) 3.4 Lymph # (Auto) 2.9 [place] # (Auto) 0.4 Eos # (Auto) 0.1 Baso # (Auto) 0.1 Absolute Nucleated RBC 0.00 Nucleated RBC % 0.0 Sodium 139 Potassium 4.2 Chloride 106 Carbon Dioxide 22 Anion Gap 11.0 BUN 11 Creatinine 0.7 Estimated GFR (MDRD) 95 Glucose 94 Calcium 9.3 Total Bilirubin 0.7 AST 17 ALT 24 Alkaline Phosphatase 86 Total Protein 7.0 Albumin 4.1 Globulin 2.9 Albumin/Globulin Ratio 1.4 Lipase 47 Urine Color YELLOW Urine Clarity CLEAR Urine pH 7.5 Ur Specific [place] 1.010 Urine Protein NEGATIVE Urine Glucose (UA) NEGATIVE Urine Ketones NEGATIVE Urine Occult Blood NEGATIVE Urine Nitrite NEGATIVE Urine Bilirubin NEGATIVE Urine Urobilinogen 0.2 (NORMAL) Ur Leukocyte Esterase NEGATIVE Ur Microscopic Review NOT INDICATED Urine Culture Comments NOT INDICATED Urine HCG, Qual NEGATIVE PD MEDICAL DECISION MAKING - ED course Complexity details: reviewed old records, reviewed results, re-evaluated patient, considered differential, d/w patient ED course: Patient feels better after Ativan and Keppra. Seems to be back to her normal ba seline. We did discuss a repeat head CT, but she declines this at this time. I think this is reasonable. She will follow-up with her neurologist for further care. Patient counseled regarding signs and symptoms for which I believe and urgent re-evaluation would be necessary. Patient with good understanding of and agreement to plan and is comfortable going home at this time This document was made in part using voice recognition software. While efforts are made to proofread this document, sound alike and grammatical errors may occur. Departure - Departure Disposition: 01 Home, Self Care Clinical Impression: Recurrent seizures Condition: Good Instructions: ED Seizure Recurrent Follow-Up: Bonita Breaux ARNP [Primary Care Provider] - Within 1 week Comments: The cause of your symptoms is unclear today. Follow-up with your doctor for further care. Your laboratory testing is normal. Continue your current medications at home. You were given an extra dose of Ativan and Keppra tonight.
== END 2019-02-09 19:53 | disposition home or self-care (01) ==
LOC: EDUNIT# → ED 18:24
DX: G40.909 Epilepsy, unspecified, not intractable, without status epilepticus (principal); G93.1 Anoxic brain damage, not elsewhere classified; Z86.74 Personal history of sudden cardiac arrest
CPT/HCPCS: 36415; 80053; 81001; 81003; 81025; 83690; 85025; 87086; 99283

== ENCOUNTER 2019-02-09 20:29 | Emergency (ER) | payer MEDICAID ==
[2019-02-09] MEDS ORDERED: LORazepam 1 MG TABLET PO STA (20:39)
--- NOTE | 2019-02-09 21:26 | CT Report ---
Reason: seizures, increased Procedure Date: 02/09/2019 Accession Number: [id number] / [id number] Procedure: CT - HEAD WO CPT Code: FULL RESULT: EXAM: CT HEAD EXAM DATE: 02/09/2019 09:05 PM. CLINICAL HISTORY: Seizures, increased. COMPARISON: None. TECHNIQUE: Multiaxial CT images were obtained from the foramen magnum to the vertex. Reformats: Sagittal and coronal. IV contrast: None. In accordance with CT protocol optimization, one or more of the following dose reduction techniques were utilized for this exam: automated exposure control, adjustment of mA and/or KV based on patient size, or use of iterative reconstructive technique. FINDINGS: Parenchyma: No intraparenchymal hemorrhage. No evidence of mass, midline shift, or CT findings of infarction. Lopez-white differentiation is distinct. Extraaxial Spaces: Normal for age. No subdural or epidural collections identified. Ventricles: Normal in size and position. Sinuses and Orbits: There is complete opacification of the right maxillary sinus. Bones: No evidence of fracture or calvarial defect. Other: None. IMPRESSION: 1. Negative for an acute or focal intracranial abnormality. 2. Complete opacification of the right maxillary sinus probably reflecting chronic sinus inflammatory disease. RAD[facility]
--- NOTE | 2019-02-09 21:50 | ED Physician Documentation ---
PD HPI SEIZURE - Stated complaint Stated Complaint: SEIZURES - Chief complaint Chief Complaint: Neuro - History obtained from History obtained from: Patient, Family - History of Present Illness Timing - onset: How many days ago (3) Witnessed: Witnessed Description of seizure activity: Generalized, Tonic clonic Injury during seizure: None Pain level max: 0 Pain level now: 0 Associated symptoms: None History of seizures: Known seizure disorder, Prior TBI (anoxic brain injury) Recently seen: Not recently seen - Additional information Additional information: 33-year-old female presents to the emergency department with what she states are myoclonic jerking movements. She states that these are seizures. She does not lose consciousness. Was just seen here and had normal blood work. Returned because the jerking movements worsened. Review of Systems Constitutional: denies: Fever, Chills Throat: denies: Sore throat Cardiac: denies: Chest pain / pressure Respiratory: denies: Cough GI: denies: Vomiting, Diarrhea Skin: denies: Rash Musculoskeletal: denies: Neck pain, Back pain Neurologic: denies: Focal weakness, Numbness, Headache, Head injury, LOC PD PAST MEDICAL HISTORY - Past Medical History Past Medical History: Yes Cardiovascular: [place], Arrhythmia, Other Neuro: Headaches, Seizure disorder, Other GI: GERD Psych: Depression, Anxiety, Panic attacks - Past Surgical History Past Surgical History: Yes General: Cholecystectomy, EGD Cardiovascular: Pacemaker - Present Medications Home Medications: Ambulatory Orders Medication Instructions Recorded Confirmed Ascorbic Acid [C-500] 1 tab PO DAILY 05/21/14 12/10/16 Ferrous Gluconate 1 tab PO BID 05/21/14 12/10/16 LORazepam [Lorazepam] 0.5 mg PO Q12H PRN 05/21/14 12/10/16 Ezra Cit/Mag/D3/Zn/Poultry Hatchery Man/[place]/Bor 1 tab BID 12/10/16 12/10/16 [Citracal-Vit D + Magnesium Tab] Cholecalciferol (Vitamin D3) 1,000 units BID 12/10/16 12/10/16 [Vitamin D3] Magnesium 500 mg PO DAILY 12/10/16 12/10/16 Ubidecarenone [Co Q-10] 50 mg BID 12/10/16 12/10/16 Acetaminophen [Tylenol Extra 250 mg PO PRN PRN 04/03/18 04/03/18 Strength] Aspirin 162 mg PO PRN PRN 04/03/18 04/03/18 Docusate Sodium 250Mg Capsule 250 mg PO BID 04/03/18 04/03/18 [Colace 250Mg Capsule] Ibuprofen 600 mg PO PRN PRN 04/03/18 04/03/18 Levetiracetam [Keppra] 1,500 mg PO BID 04/03/18 04/03/18 Pantoprazole [Protonix] 40 mg PO DAILY 04/03/18 04/03/18 Propranolol [Inderal] 10 mg PO TID 04/03/18 04/03/18 Simethicone [Gas Relief] PRN 04/03/18 Topiramate [Topamax] 25 mg PO BID 04/03/18 04/03/18 Calcium Carbonate [Tums (Calcium 500 mg PO BID PRN #20 tablet 06/09/18 Carbonate 500mg)] DULoxetine [Cymbalta] 30 mg BID 02/09/19 02/09/19 LORazepam [Ativan] 0.25 mg 02/09/19 Levonorgestrel [Kyleena] 1 02/09/19 hydrOXYzine HCl [Hydroxyzine HCl] 25 mg TID PRN 02/09/19 02/09/19 raNITIdine [Zantac] 150 mg DAILY 02/09/19 02/09/19 - Allergies Allergies/Adverse Reactions: Allergies Allergy/AdvReac Type Severity Reaction Status Date / Time azithromycin [From Zithromax] AdvReac Severe prolonged Verified 02/09/19 18:46 qt ciprofloxacin [From Cipro] AdvReac Severe prolonged Verified 02/09/19 18:46 QT ciprofloxacin HCl * AdvReac Severe prolonged Verified 02/09/19 18:46 [From Cipro] QT desipramine AdvReac Severe prolonged Verified 02/09/19 18:46 QT diphenhydramine HCl * AdvReac Severe prolonged Verified 02/09/19 18:46 [From Benadryl] QT droperidol [From Inapsine] AdvReac Severe prolonged Verified 02/09/19 18:46 QT erythromycin base AdvReac Severe prolonged Verified 02/09/19 18:46 [Erythromycin Base] QT levofloxacin [From Levaquin] AdvReac Severe prolonged Verified 02/09/19 18:46 QT prochlorperazine edisylate * AdvReac Severe prolonged Verified 02/09/19 18:46 [From Compazine] qt prochlorperazine maleate * AdvReac Severe prolonged Verified 02/09/19 18:46 [From Compazine] qt sertraline AdvReac Severe prolonged Verified 02/09/19 18:46 QT lactose AdvReac Intermediate Cramps Verified 02/09/19 18:46 Sulfa (Sulfonamide AdvReac Hallucinati Verified 02/09/19 18:46 Antibiotics) ons - Social History Does the pt smoke?: No Smoking Status: Never smoker Does the pt drink ETOH?: No Does the pt have substance abuse?: No - Immunizations Immunizations are current?: Yes - POLST Patient has POLST: No POLST Status: Full Code PD ED PE NORMAL - Vitals Vital signs reviewed: Yes - General General: Alert and oriented X 3, No acute distress, Well developed/nourished - HEENT HEENT: Atraumatic, PERRL, Moist mucous membranes - Neck Neck: Supple, no meningeal sign, No bony TTP - Cardiac Cardiac: RRR, Strong equal pulses - Respiratory Respiratory: No respiratory distress, Clear bilaterally - Abdomen Abdomen: Soft, Non tender, Non distended - Back Back: No CVA TTP, No spinal TTP - Derm Derm: Warm and dry, No rash - Extremities Extremities: No calf tenderness / cord - Neuro Neuro: Alert and oriented X 3, it security 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 . Complete opacification of the right maxillary sinus probably reflecting chronic sinus inflammatory disease. ) PD MEDICAL DECISION MAKING - ED course Complexity details: reviewed old records, reviewed results, re-evaluated patient, considered differential, d/w patient, d/w family, d/w healthcare management consultant ED course: 33-year-old female with recurrent myoclonic jerks. Head CT does not show any acute abnormalities. She just had normal blood work a few hours ago. Discussed the case with her neurologist Dr. Gao who confirms that these are psychogenic and do not need any acute treatment. She was given a second dose of Ativan here and stopped her movements. Mother is comfortable taking her home at this time. Patient and family counseled regarding signs and symptoms for which I believe and urgent re-evaluation would be necessary. Patient with good understanding of and agreement to plan and is comfortable going home at this time This document was made in part using voice recognition software. While efforts are made to proofread this document, sound alike and grammatical errors may occur. Departure - Departure Disposition: 01 Home, Self Care Clinical Impression: Recurrent seizures Condition: Good Instructions: ED Seizure Recurrent Follow-Up: Bonita Breaux ARNP [Primary Care Provider] - Elías Gao MD [Physician No Access] - Comments: Follow up with Dr. Gao as scheduled. Return if you worsen. go home and rest tonight. Discharge Date/Time: 02/09/19 22:22
[2019-02-09 22:23] VITALS: BP 112/68
== END 2019-02-09 22:22 | disposition home or self-care (01) ==
LOC: ED 20:29
DX: G40.909 Epilepsy, unspecified, not intractable, without status epilepticus (principal); G93.1 Anoxic brain damage, not elsewhere classified; Z86.74 Personal history of sudden cardiac arrest
CPT/HCPCS: 36415; 70450; 80053; 80177; 81003; 81025; 83690; 85025; 96374; 99283; 99284; A9270; J2060; J8499

== ENCOUNTER 2019-03-19 13:57 | Outpatient (CLI) | payer MEDICAID | END 2019-03-19 13:58 | disposition critical access hospital (66) | LOC: EMS 13:57 | PROVIDERS: ATTEND Surgery | DX: R56.9 Unspecified convulsions (principal); R19.7 Diarrhea, unspecified; R45.851 Suicidal ideations | CPT/HCPCS: A0425; A0429; A0999 ==

== ENCOUNTER 2019-03-19 14:26 | Emergency (ER) | payer MEDICAID ==
[2019-03-19 14:37] VITALS: BP 117/77
[2019-03-19] MEDS ORDERED: cefTRIAXone 1 GM in SODIUM CHLORIDE 0.9% MINIBAG 100 ML IV STA (15:33)
[2019-03-19] MEDS ORDERED: levETIRAcetam 250 MG TABLET PO STA (15:33)
[2019-03-19] MEDS ORDERED: DEXAMETHASONE 10 MG/ML VIAL IVP STA (15:33)
[2019-03-19] MEDS ORDERED: LORazepam 0.5 MG TABLET PO STA (15:33)
[2019-03-19] MEDS ORDERED: SODIUM CHLORIDE 0.9% 1,000 ML IV ONE (15:33)
[2019-03-19 16:15] LABS: BASOPHILS # (AUTO) 0.1 10^3/uL (0.0-0.1); BASOPHILS % (AUTO) 1.1 %; EOSINOPHILS # (AUTO) 0.1 10^3/uL (0.0-0.7); EOSINOPHILS % (AUTO) 1.8 %; HGB - HEMOGLOBIN 12.8 g/dL (12.0-16.0); LYMPHOCYTES # (AUTO) 2.9 10^3/uL (1.5-3.5); LYMPHOCYTES % (AUTO) 44.3 %; MEAN CORPUSCULAR HEMOGLOBIN 31.8 pg (27.0-31.0); MEAN CORPUSCULAR HGB CONC 32.8 g/dL (32.0-36.0); MEAN CORPUSCULAR VOLUME 96.8 fL (81.0-99.0); MEAN PLATELET VOLUME 10.3 fL (7.9-10.8); MONOCYTES # (AUTO) 0.5 10^3/uL (0.0-1.0); MONOCYTES % (AUTO) 8.3 %; NEUTROPHILS # (AUTO) 2.9 10^3/uL (1.5-6.6); NEUTROPHILS % (AUTO) 44.2 %; PLT - PLATELET COUNT 262 10^3/uL (130-450); RED BLOOD COUNT 4.03 10^6/uL (4.20-5.40); WHITE BLOOD COUNT 6.5 x10^3/uL (4.8-10.8)
[2019-03-19 16:26] LABS: ALBUMIN 4.1 g/dL (3.2-5.5); ALBUMIN/GLOBULIN RATIO 1.4 (1.0-2.2); BILIRUBIN,TOTAL 0.7 mg/dL (0.2-1.0); CALCIUM 9.5 mg/dL (8.5-10.3); CREATININE 0.8 mg/dL (0.4-1.0); TOTAL PROTEIN 7.1 g/dL (6.7-8.2)
--- NOTE | 2019-03-19 16:37 | ED Physician Documentation ---
PD HPI SEIZURE - Stated complaint Stated Complaint: SIEZURE - Chief complaint Chief Complaint: Neuro - History obtained from History obtained from: Patient, Family - History of Present Illness Timing - onset: How many days ago (2) Witnessed: Witnessed Number of seizures: Multiple Description of seizure activity: Other (body shaking) Associated symptoms: None History of seizures: Known seizure disorder Contributing factors: Other (worse seizures than usual) Treatment [employer] WORKER: Ativan Similar symptoms before: Diagnosis (seizure) Recently seen: Emergency Dept - Additional information Additional information: 33-year-old female with a history of anoxic brain injury (2017 torsades with cardiac arrest and coma) and seizure disorder is usually maintained on Ativan and Keppra and she has had an increase in seizure activity over the past 2 days. She does not have any specific explanation for this and denies any other specific symptoms. She has been in the emergency department 1 month ago for similar presentation and at that time CT scan showed opacification of the right maxillary sinus. She denies a cough or post nasal drainage. Review of Systems Constitutional: reports: Fatigue. denies: Fever, Chills, Myalgias Eyes: denies: Decreased vision Ears: denies: Ear pain Nose: denies: Rhinorrhea / runny nose, Congestion Throat: denies: Sore throat Cardiac: denies: Chest pain / pressure, Palpitations Respiratory: denies: Dyspnea, Cough GI: denies: Abdominal Pain, Nausea, Vomiting : denies: Dysuria, Frequency Skin: denies: Rash Musculoskeletal: denies: Neck pain, Back pain, Extremity pain Neurologic: reports: Seizure. denies: Generalized weakness, Focal weakness, Numbness, Difficulty speaking, Headache, Head injury PD PAST MEDICAL HISTORY - Past Medical History Cardiovascular: [place], Arrhythmia, Other Neuro: Headaches, Seizure disorder, Other GI: GERD Psych: Depression, Anxiety, Panic attacks - Past Surgical History Past Surgical History: Yes General: Cholecystectomy, EGD Cardiovascular: Pacemaker - Present Medications Home Medications: Ambulatory Orders Medication Instructions Recorded Confirmed Ascorbic Acid [C-500] 1 tab PO DAILY 05/21/14 12/10/16 Ferrous Gluconate 1 tab PO BID 05/21/14 12/10/16 LORazepam [Lorazepam] 0.5 mg PO Q12H PRN 05/21/14 12/10/16 Ezra Cit/Mag/D3/Zn/Wig Sales Consultant/[place]/Bor 1 tab BID 12/10/16 12/10/16 [Citracal-Vit D + Magnesium Tab] Cholecalciferol (Vitamin D3) 1,000 units BID 12/10/16 12/10/16 [Vitamin D3] Magnesium 500 mg PO DAILY 12/10/16 12/10/16 Ubidecarenone [Co Q-10] 50 mg BID 12/10/16 12/10/16 Acetaminophen [Tylenol Extra 250 mg PO PRN PRN 04/03/18 04/03/18 Strength] Aspirin 162 mg PO PRN PRN 04/03/18 04/03/18 Docusate Sodium 250Mg Capsule 250 mg PO BID 04/03/18 04/03/18 [Colace 250Mg Capsule] Ibuprofen 600 mg PO PRN PRN 04/03/18 04/03/18 Levetiracetam [Keppra] 1,500 mg PO BID 04/03/18 04/03/18 Pantoprazole [Protonix] 40 mg PO DAILY 04/03/18 04/03/18 Propranolol [Inderal] 10 mg PO TID 04/03/18 04/03/18 Simethicone [Gas Relief] PRN 04/03/18 Topiramate [Topamax] 25 mg PO BID 04/03/18 04/03/18 Calcium Carbonate [Tums (Calcium 500 mg PO BID PRN #20 tablet 06/09/18 Carbonate 500mg)] DULoxetine [Cymbalta] 30 mg BID 02/09/19 02/09/19 LORazepam [Ativan] 0.25 mg 02/09/19 Levonorgestrel [Kyleena] 1 02/09/19 hydrOXYzine HCl [Hydroxyzine HCl] 25 mg TID PRN 02/09/19 02/09/19 raNITIdine [Zantac] 150 mg DAILY 02/09/19 02/09/19 Amox/Clav 875/125 [Augmentin] 1 each PO Q12H #20 tablet 03/19/19 - Allergies Allergies/Adverse Reactions: Allergies Allergy/AdvReac Type Severity Reaction Status Date / Time meclizine Allergy Unknown Verified 02/11/19 10:42 venlafaxine Allergy Unknown Verified 03/19/19 14:37 azithromycin [From Zithromax] AdvReac Severe prolonged Verified 03/19/19 14:37 qt ciprofloxacin [From Cipro] AdvReac Severe prolonged Verified 03/19/19 14:37 QT ciprofloxacin HCl * AdvReac Severe prolonged Verified 03/19/19 14:37 [From Cipro] QT desipramine AdvReac Severe prolonged Verified 03/19/19 14:37 QT diphenhydramine HCl * AdvReac Severe prolonged Verified 03/19/19 14:37 [From Benadryl] QT droperidol [From Inapsine] AdvReac Severe prolonged Verified 03/19/19 14:37 QT erythromycin base AdvReac Severe prolonged Verified 03/19/19 14:37 [Erythromycin Base] QT levofloxacin [From Levaquin] AdvReac Severe prolonged Verified 03/19/19 14:37 QT prochlorperazine edisylate * AdvReac Severe prolonged Verified 03/19/19 14:37 [From Compazine] qt prochlorperazine maleate * AdvReac Severe prolonged Verified 02/09/19 18:46 [From Compazine] qt sertraline AdvReac Severe prolonged Verified 02/09/19 18:46 QT lactose AdvReac Intermediate Cramps Verified 02/09/19 18:46 Sulfa (Sulfonamide AdvReac Hallucinati Verified 02/09/19 18:46 Antibiotics) ons - Social History Does the pt smoke?: No Smoking Status: Never smoker Does the pt drink ETOH?: No Does the pt have substance abuse?: No - Immunizations Immunizations are current?: Yes - POLST Patient has POLST: No POLST Status: Full Code PD ED PE NORMAL - Vitals Vital signs reviewed: Yes (normal ) - General General: No acute distress, Well developed/nourished, Other (The patient exhibits nearly continuous myoclonic jerking. ) - HEENT HEENT: Atraumatic, PERRL, EOMI, Pharynx benign, Other (both TM's are inflamed with rounding of the landmarks. 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, No motor deficit, No sensory deficit, Normal speech Eye Opening: Spontaneous Motor: Obeys Commands Verbal: Oriented GCS Score: 15 - Psych Psych: Normal mood, Normal affect Results - Vitals Vitals: Vital Signs - 24 hr 03/19/19 03/19/19 14:30 14:58 Temperature 36.8 C Heart Rate 73 86 Respiratory 17 19 Rate Blood Pressure 117/77 117/77 O2 Saturation 98 99 Oxygen O2 Source Room air - Labs Labs: Laboratory Tests 03/19/19 03/19/19 15:58 15:58 WBC 6.5 RBC 4.03 L Hgb 12.8 Hct 39.0 MCV 96.8 MCH 31.8 H MCHC 32.8 RDW 13.0 Plt Count 262 MPV 10.3 Neut # (Auto) 2.9 Lymph # (Auto) 2.9 [place] # (Auto) 0.5 Eos # (Auto) 0.1 Baso # (Auto) 0.1 Absolute Nucleated RBC 0.00 Nucleated RBC % 0.0 Sodium 143 Potassium 3.7 Chloride 108 Carbon Dioxide 25 Anion Gap 10.0 BUN 12 Creatinine 0.8 Estimated GFR (MDRD) 82 L Glucose 91 Calcium 9.5 Total Bilirubin 0.7 AST 18 ALT 20 Alkaline Phosphatase 85 Total Protein 7.1 Albumin 4.1 Globulin 3.0 Albumin/Globulin Ratio 1.4 Lipase 45 PD MEDICAL DECISION MAKING - ED course Complexity details: reviewed results, re-evaluated patient, considered differential, d/w patient, d/w family ED course: 33-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 She does have chronic right maxillary sinusitis and I suspect this infection is real and related. She is treated in the emergency department with a liter of saline 10 mg of dexamethasone and a gram of Rocephin intravenously. She is given half a milligram of Ativan orally and 1500 mg of Keppra orally. At the conclusion of treatment the patient no longer has myoclonic jerking and speaks more easily. Departure - Departure Disposition: 01 Home, Self Care Clinical Impression: Recurrent seizures Otitis media Qualifiers: Otitis media type: suppurative Chronicity: acute Laterality: bilateral Recurrence: non-recurrent Spontaneous tympanic membrane rupture: without spontaneous rupture Qualified Code(s): H66.003 - Acute suppurative otitis media without spontaneous rupture of ear drum, bilateral Condition: Stable Instructions: ED Otitis Media Acute Adult, ED Seizure Recurrent Follow-Up: Bonita Breaux ARNP [Primary Care Provider] - Prescriptions: Amox/Clav 875/125 [Augmentin] 1 each PO Q12H #20 tablet
== END 2019-03-19 18:08 | disposition home or self-care (01) ==
LOC: ED 14:26
DX: G40.909 Epilepsy, unspecified, not intractable, without status epilepticus (principal); H66.003 Acute suppurative otitis media without spontaneous rupture of ear drum, bilateral; J32.0 Chronic maxillary sinusitis
CPT/HCPCS: 36415; 80053; 83690; 85025; 96365; 96375; 99284; A9270

== ENCOUNTER 2019-03-25 16:54 | Emergency (ER) | payer MEDICAID ==
--- NOTE | 2019-03-25 17:15 | ED Physician Documentation ---
PD HPI HEAD INJURY - Stated complaint Stated Complaint: GLF/CONFUSION - Chief complaint Chief Complaint: Neuro - History obtained from History obtained from: Patient - History of Present Illness Mechanism of head injury: Fell (lost balance and fell striking back of head. [place] dazed, lightheaded, and feeling slower to process. Prior anoxic brain injury, so some slow mentation, but feels more off.) Where head injury occurred: Home Timing - onset: Yesterday Location of injury: Back Quality of pain: Aching Associated symptoms: AMS (feeling slower to think and respond. Mom says more forgetful and slower processing than usual.), Nausea / vomiting (nausea without vomiting.), Neck pain (on lower right). No: LOC Symptoms worsen with: Palpation, Movement. No: Light, Noise Contributing factors: No: Anticoagulated Recently seen: Not recently seen Review of Systems Constitutional: denies: Fever Nose: denies: Rhinorrhea / runny nose, Congestion Throat: denies: Sore throat Respiratory: denies: Cough GI: reports: Nausea. denies: Abdominal Pain, Vomiting : denies: Dysuria, Frequency Skin: reports: Lesions (she says she picks at her skin and has small abrasions on arms but has noted some red spots on legs recently. No drainage. Also notes legs swelling more the past few weeks. Has not been as active but still ambulatory.) Musculoskeletal: denies: Back pain Neurologic: reports: Confused (more than baseline), Headache, Head injury. denies: Focal weakness, Numbness PD PAST MEDICAL HISTORY - Past Medical History Cardiovascular: [place], Arrhythmia, Other Neuro: Headaches, Seizure disorder, Other (anoxic brain injury in the past) Endocrine/Autoimmune: None GI: GERD Psych: Depression, Anxiety, Panic attacks - Past Surgical History Past Surgical History: Yes General: Cholecystectomy, EGD Cardiovascular: Pacemaker - Present Medications Home Medications: Ambulatory Orders Medication Instructions Recorded Confirmed Ascorbic Acid [C-500] 1 tab PO DAILY 05/21/14 12/10/16 Ferrous Gluconate 1 tab PO BID 05/21/14 12/10/16 LORazepam [Lorazepam] 0.5 mg PO Q12H PRN 05/21/14 12/10/16 Ezra Cit/Mag/D3/Zn/Director Business Systems/[place]/Bor 1 tab BID 12/10/16 12/10/16 [Citracal-Vit D + Magnesium Tab] Cholecalciferol (Vitamin D3) 1,000 units BID 12/10/16 12/10/16 [Vitamin D3] Magnesium 500 mg PO DAILY 12/10/16 12/10/16 Ubidecarenone [Co Q-10] 50 mg BID 12/10/16 12/10/16 Acetaminophen [Tylenol Extra 250 mg PO PRN PRN 04/03/18 04/03/18 Strength] Aspirin 162 mg PO PRN PRN 04/03/18 04/03/18 Docusate Sodium 250Mg Capsule 250 mg PO BID 04/03/18 04/03/18 [Colace 250Mg Capsule] Ibuprofen 600 mg PO PRN PRN 04/03/18 04/03/18 Levetiracetam [Keppra] 1,500 mg PO BID 04/03/18 04/03/18 Pantoprazole [Protonix] 40 mg PO DAILY 04/03/18 04/03/18 Propranolol [Inderal] 10 mg PO TID 04/03/18 04/03/18 Simethicone [Gas Relief] PRN 04/03/18 Topiramate [Topamax] 25 mg PO BID 04/03/18 04/03/18 Calcium Carbonate [Tums (Calcium 500 mg PO BID PRN #20 tablet 06/09/18 Carbonate 500mg)] DULoxetine [Cymbalta] 30 mg BID 02/09/19 02/09/19 LORazepam [Ativan] 0.25 mg 02/09/19 Levonorgestrel [Kyleena] 1 02/09/19 hydrOXYzine HCl [Hydroxyzine HCl] 25 mg TID PRN 02/09/19 02/09/19 raNITIdine [Zantac] 150 mg DAILY 02/09/19 02/09/19 Amox/Clav 875/125 [Augmentin] 1 each PO Q12H #20 tablet 03/19/19 Chlorhexidine Gluconate [Hibiclens] 15 ml TP DAILY #236 ml 03/25/19 - Allergies Allergies/Adverse Reactions: Allergies Allergy/AdvReac Type Severity Reaction Status Date / Time meclizine Allergy Unknown Verified 02/11/19 10:42 venlafaxine Allergy Unknown Verified 03/19/19 14:37 azithromycin [From Zithromax] AdvReac Severe prolonged Verified 03/19/19 14:37 qt ciprofloxacin [From Cipro] AdvReac Severe prolonged Verified 03/19/19 14:37 QT ciprofloxacin HCl * AdvReac Severe prolonged Verified 03/19/19 14:37 [From Cipro] QT desipramine AdvReac Severe prolonged Verified 03/19/19 14:37 QT diphenhydramine HCl * AdvReac Severe prolonged Verified 03/19/19 14:37 [From Benadryl] QT droperidol [From Inapsine] AdvReac Severe prolonged Verified 03/19/19 14:37 QT erythromycin base AdvReac Severe prolonged Verified 03/19/19 14:37 [Erythromycin Base] QT levofloxacin [From Levaquin] AdvReac Severe prolonged Verified 03/19/19 14:37 QT prochlorperazine edisylate * AdvReac Severe prolonged Verified 03/19/19 14:37 [From Compazine] qt prochlorperazine maleate * AdvReac Severe prolonged Verified 02/09/19 18:46 [From Compazine] qt sertraline AdvReac Severe prolonged Verified 02/09/19 18:46 QT lactose AdvReac Intermediate Cramps Verified 02/09/19 18:46 Sulfa (Sulfonamide AdvReac Hallucinati Verified 02/09/19 18:46 Antibiotics) ons - Social History Does the pt smoke?: No Smoking Status: Never smoker Does the pt drink ETOH?: No Does the pt have substance abuse?: No - Immunizations Immunizations are current?: Yes - POLST Patient has POLST: No POLST Status: Full Code PD ED PE NORMAL - Vitals Vital signs reviewed: Yes - General General: Alert and oriented X 3, Well developed/nourished, Other (conversant with coherent thoughts, but slow to get complete sentences out. Deliberate speech pattern and focused on words.) - HEENT HEENT: Ears normal, Moist mucous membranes, Pharynx benign, Other (some tender on scalp on right posterolateral. ) - Neck Neck: Supple, no meningeal sign, No bony TTP (mild tender right lower neck. No midline tenderness), No adenopathy - Cardiac Cardiac: RRR, No murmur - Respiratory Respiratory: Clear bilaterally - Abdomen Abdomen: Soft, Non tender - Derm Derm: Normal color, Warm and dry, Other (arms and legs with superficial red spots/sores with mild redness around some on the legs. No drainage. No induration nor abscesses. 1+ edema in both legs without calf tenderness. ) - Neuro Neuro: Alert and oriented X 3, No motor deficit, Normal speech Results - Vitals Vitals: Oxygen O2 Source Room air - Rads (name of study) head CT Radiology: Prelim report reviewed (No acute process. Normal appearance brain. ), See rad report PD MEDICAL DECISION MAKING - ED course Complexity details: reviewed results, considered differential, d/w patient, d/w family Departure - Departure Disposition: 01 Home, Self Care Clinical Impression: Leg sore, Bilateral leg edema Fall from slip, trip, or stumble Qualifiers: Encounter type: initial encounter Qualified Code(s): W01.0XXA - Fall on same level from slipping, tripping and stumbling without subsequent striking against object, initial encounter Mild concussion Qualifiers: Encounter type: initial encounter Loss of consciousness presence/duration: without LOC Qualified Code(s): S06.0X0A - Concussion without loss of consciousness, initial encounter Condition: Stable Record reviewed to determine appropriate education?: Yes Instructions: ED Concussion Follow-Up: Bonita Breaux ARNP [Primary Care Provider] - GRIFFIN MAN MD [Physician No Access] - Prescriptions: Chlorhexidine Gluconate [Hibiclens] 15 ml TP DAILY #236 ml Comments: No signs of bleeding localized swelling or fractures on your CT scan. Symptoms would be consistent with a mild concussion. Commonly this will last for a few days and then improve. It could take longer for some individuals and possibly with your prior injury. Follow-up with your primary care if not improved over the next several days. Tylenol if needed for headaches. For the leg swelling, I would try some compressive socks to go up to below the knee during the day and elevate your legs often. Use chlorhexidine antiseptic in the shower daily for the next week or so. See if that would allow the sores on the skin to heal better. Recheck if they are worsening. Discharge Date/Time: 03/25/19 19:15
[2019-03-25 18:36] VITALS: BP 138/91
--- NOTE | 2019-03-25 18:41 | CT Report ---
Reason: fell yesterday and struck head; concussive sx Procedure Date: 03/25/2019 Accession Number: [id number] / [id number] Procedure: CT - HEAD WO CPT Code: FULL RESULT: EXAM: CT HEAD EXAM DATE: 03/25/2019 06:10 PM. CLINICAL HISTORY: 33-year-old female. Fell yesterday and struck head; concussive sx. COMPARISON: HEAD W/O 02/09/2019 8:56 PM. TECHNIQUE: Multiaxial CT images were obtained from the foramen magnum to the vertex. Reformats: Sagittal and coronal. IV contrast: None. In accordance with CT protocol optimization, one or more of the following dose reduction techniques were utilized for this exam: automated exposure control, adjustment of mA and/or KV based on patient size, or use of iterative reconstructive technique. FINDINGS: Parenchyma: No intraparenchymal hemorrhage. No evidence of mass, midline shift, or CT findings of infarction. Lopez-white differentiation is distinct. Extraaxial Spaces: Normal for age. No subdural or epidural collections identified. Ventricles: Normal in size and position. Sinuses and Orbits: Slight interval decrease in near complete opacification of the right maxillary sinus. Mild mucosal thickening left maxillary sinus. Remaining imaged paranasal sinuses, orbits, and mastoids show no significant abnormality. Bones: No evidence of fracture or calvarial defect. Other: None. IMPRESSION: No CT evidence of acute intracranial abnormality, specifically no CT evidence of acute infarct, intracranial hemorrhage, mass effect, midline shift, or hydrocephalus. RAD[facility]
== END 2019-03-25 19:15 | disposition home or self-care (01) ==
LOC: ED 16:54
DX: S06.0X0A Concussion without loss of consciousness, initial encounter (principal); W01.10XA Fall on same level from slipping, tripping and stumbling with subsequent striking against unspecified object, initial encounter; Y92.009 Unspecified place in unspecified non-institutional (private) residence as the place of occurrence of the external cause; L98.9 Disorder of the skin and subcutaneous tissue, unspecified; R60.0 Localized edema; Z87.820 Personal history of traumatic brain injury; G40.909 Epilepsy, unspecified, not intractable, without status epilepticus
CPT/HCPCS: 70450; 99284

== ENCOUNTER 2019-03-29 08:00 | Outpatient (CLI) | payer MEDICAID | END 2019-03-29 23:59 | disposition home or self-care (01) | LOC: LAB.N 08:00 | PROVIDERS: ATTEND Nurse Practitioner Gerontology | DX: R56.9 Unspecified convulsions (principal) | CPT/HCPCS: 36415; 80177 ==

== ENCOUNTER 2019-04-24 08:39 | Outpatient (CLI) | payer MEDICAID | END 2019-04-24 08:40 | disposition critical access hospital (66) | LOC: EMS 08:39 | PROVIDERS: ATTEND Surgery | DX: R06.00 Dyspnea, unspecified (principal); R60.0 Localized edema | CPT/HCPCS: A0425; A0429; A0999 ==

== ENCOUNTER 2019-04-24 08:59 | Emergency (ER) | payer MEDICAID ==
[2019-04-24] MEDS ORDERED: FUROSEMIDE 20 MG/2 ML VIAL IVP STA (09:38)
[2019-04-24 10:02] LABS: BASOPHILS # (AUTO) 0.1 10^3/uL (0.0-0.1); BASOPHILS % (AUTO) 1.3 %; EOSINOPHILS # (AUTO) 0.2 10^3/uL (0.0-0.7); EOSINOPHILS % (AUTO) 2.9 %; HGB - HEMOGLOBIN 11.5 g/dL (12.0-16.0); LYMPHOCYTES # (AUTO) 2.5 10^3/uL (1.5-3.5); LYMPHOCYTES % (AUTO) 46.9 %; MEAN CORPUSCULAR HGB CONC 31.9 g/dL (32.0-36.0); MEAN CORPUSCULAR VOLUME 100.6 fL (81.0-99.0); MEAN PLATELET VOLUME 10.4 fL (7.9-10.8); MONOCYTES # (AUTO) 0.3 10^3/uL (0.0-1.0); MONOCYTES % (AUTO) 6.3 %; NEUTROPHILS # (AUTO) 2.2 10^3/uL (1.5-6.6); NEUTROPHILS % (AUTO) 42.4 %; PLT - PLATELET COUNT 233 10^3/uL (130-450); RED BLOOD COUNT 3.59 10^6/uL (4.20-5.40); RED CELL DISTRIBUTION WIDTH 13.4 % (12.0-15.0); WHITE BLOOD COUNT 5.3 x10^3/uL (4.8-10.8)
[2019-04-24 10:13] LABS: ALBUMIN 3.8 g/dL (3.2-5.5); ALBUMIN/GLOBULIN RATIO 1.2 (1.0-2.2); BILIRUBIN,TOTAL 0.7 mg/dL (0.2-1.0); CALCIUM 9.2 mg/dL (8.5-10.3); CREATININE 0.6 mg/dL (0.4-1.0); MAGNESIUM 2.3 mg/dL (1.7-2.8); TOTAL PROTEIN 6.9 g/dL (6.7-8.2)
--- NOTE | 2019-04-24 10:58 | XRAY Report ---
Reason: dyspnea/ cough Procedure Date: 04/24/2019 Accession Number: [id number] / [id number] Procedure: XR - Chest 2 View X-Ray CPT Code: 92377 FULL RESULT: EXAM: CHEST RADIOGRAPHY EXAM DATE: 04/24/2019 10:03 AM HISTORY: dyspnea/ cough COMPARISON: 01/25/2012 9:37 AM TECHNIQUE: Two Views FINDINGS: Lungs/Pleura: The lungs are clear. No consolidation, edema or pleural effusion. Mildly limited by patient/ICD overlying the central left hemithorax. Cardiomediastinal silhouette: Unremarkable accounting for technique. Other: None. IMPRESSION: No acute disease. RADIA
--- NOTE | 2019-04-24 13:06 | Ultrasound Report ---
Reason: bilateral leg edema for few weeks, worse Procedure Date: 04/24/2019 Accession Number: [id number] / [id number] Procedure: US - Duplex Ext Veins Bilateral CPT Code: FULL RESULT: EXAM: BILATERAL LOWER EXTREMITY VENOUS ULTRASOUND EXAM DATE: 04/24/2019 12:23 PM. CLINICAL HISTORY: Bilateral leg edema for few weeks, worse. Rule out DVT. COMPARISON: None. TECHNIQUE: Real-time sonographic vascular imaging was performed by the concrete pump operator helper through the lower extremities utilizing both color-flow and Doppler spectral analysis. Multiple data entry representative static images were saved for review. Technically difficult exam due to body habitus. FINDINGS: Right: Common Femoral Vein (CFV): Normal. CFV-GSV Junction: Normal. Profunda Femoral Vein (PFV): Normal. Femoral Vein (FV) Prox: Normal. Femoral Vein (FV) Mid: Normal. Femoral Vein (FV) Dist: Normal. Popliteal Vein: Normal. Posterior Tibial Veins: Normal. Peroneal Veins: Limited visibility due to body habitus. Left: Common Femoral Vein (CFV): Normal. CFV-GSV Junction: Normal. Profunda Femoral Vein (PFV): Normal. Femoral Vein (FV) Prox: Normal. Femoral Vein (FV) Mid: Normal. Femoral Vein (FV) Dist: Normal. Popliteal Vein: Normal. Posterior Tibial Veins: Normal. Peroneal Veins: Limited visibility due to body habitus. IMPRESSION: 1. No DVT demonstrated in either lower extremity. RADIA
--- NOTE | 2019-04-24 13:32 | ED Physician Documentation ---
PD HPI DYSPNEA - Stated complaint Stated Complaint: SOA/SWELLING - Chief complaint Chief Complaint: Cardiac - History obtained from History obtained from: Patient, EMS - History of Present Illness Timing - onset: How many days ago (2-3) Timing - onset during: Light activity Timing - duration: Days Timing - details: Gradual onset, Still present (has noted some dyspnea with activity and also bilateral leg edema.) Inciting event(s): No: Out of meds, URI, Immobilization/travel Associated symptoms: Cough, Bilateral edema. No: Fever, Hemoptysis, Wheezing, Chest pain / discomfort Similar symptoms before: Diagnosis (had CHF related to arrhythmia in the past) Recently seen: Not recently seen Review of Systems Constitutional: denies: Fever, Chills, Myalgias Nose: denies: Rhinorrhea / runny nose, Congestion Throat: denies: Sore throat Cardiac: denies: Chest pain / pressure, Palpitations Respiratory: reports: Dyspnea, Cough. denies: Wheezing GI: denies: Abdominal Pain, Nausea, Vomiting, Diarrhea Skin: denies: Rash, Lesions Musculoskeletal: reports: Extremity swelling Neurologic: reports: Generalized weakness. denies: Focal weakness, Numbness PD PAST MEDICAL HISTORY - Past Medical History Cardiovascular: [place], Arrhythmia, Other Neuro: Headaches, Seizure disorder, Other (anoxic brain injury in the past) Endocrine/Autoimmune: None GI: GERD Psych: Depression, Anxiety, Panic attacks - Past Surgical History Past Surgical History: Yes General: Cholecystectomy, EGD Cardiovascular: Pacemaker - Present Medications Home Medications: Ambulatory Orders Medication Instructions Recorded Confirmed Ascorbic Acid [C-500] 1 tab PO DAILY 05/21/14 12/10/16 Ferrous Gluconate 1 tab PO BID 05/21/14 12/10/16 LORazepam [Lorazepam] 0.5 mg PO Q12H PRN 05/21/14 12/10/16 Ezra Cit/Mag/D3/Zn/Metal Furniture Repairer/[place]/Bor 1 tab BID 12/10/16 12/10/16 [Citracal-Vit D + Magnesium Tab] Cholecalciferol (Vitamin D3) 1,000 units BID 12/10/16 12/10/16 [Vitamin D3] Magnesium 500 mg PO DAILY 12/10/16 12/10/16 Ubidecarenone [Co Q-10] 50 mg BID 12/10/16 12/10/16 Acetaminophen [Tylenol Extra 250 mg PO PRN PRN 08/25/18 08/25/18 Strength] Aspirin 162 mg PO PRN PRN 04/03/18 04/03/18 Docusate Sodium 250Mg Capsule 250 mg PO BID 04/03/18 04/03/18 [Colace 250Mg Capsule] Ibuprofen 600 mg PO PRN PRN 04/03/18 04/03/18 Levetiracetam [Keppra] 1,500 mg PO BID 04/03/18 04/03/18 Pantoprazole [Protonix] 40 mg PO DAILY 04/03/18 04/03/18 Propranolol [Inderal] 10 mg PO TID 04/03/18 04/03/18 Simethicone [Gas Relief] PRN 04/03/18 Topiramate [Topamax] 25 mg PO BID 04/03/18 04/03/18 Calcium Carbonate [Tums (Calcium 500 mg PO BID PRN #20 tablet 06/09/18 Carbonate 500mg)] DULoxetine [Cymbalta] 30 mg BID 02/09/19 02/09/19 LORazepam [Ativan] 0.25 mg 02/09/19 Levonorgestrel [Kyleena] 1 02/09/19 hydrOXYzine HCl [Hydroxyzine HCl] 25 mg TID PRN 02/09/19 02/09/19 raNITIdine [Zantac] 150 mg DAILY 02/09/19 02/09/19 Amox/Clav 875/125 [Augmentin] 1 each PO Q12H #20 tablet 03/19/19 Chlorhexidine Gluconate [Hibiclens] 15 ml TP DAILY #236 ml 03/25/19 Albuterol Sulf [Ventolin Hfa 1 - 2 puffs INH Q4HR PRN #1 inhaler 04/24/19 Inhaler] Compress.stocking,Knee,Reg,Lrg 1 each MC DAILY #1 each 04/24/19 [Relief Knee Close Toe] hydroCHLOROthiazide 25 mg PO DAILY #10 tablet 04/24/19 [Hydrochlorothiazide] - Allergies Allergies/Adverse Reactions: Allergies Allergy/AdvReac Type Severity Reaction Status Date / Time meclizine Allergy Unknown Verified 04/24/19 09:05 venlafaxine Allergy Unknown Verified 04/24/19 09:05 azithromycin [From Zithromax] AdvReac Severe prolonged Verified 04/24/19 09:05 qt ciprofloxacin [From Cipro] AdvReac Severe prolonged Verified 04/24/19 09:05 QT ciprofloxacin HCl * AdvReac Severe prolonged Verified 04/24/19 09:05 [From Cipro] QT desipramine AdvReac Severe prolonged Verified 04/24/19 09:05 QT diphenhydramine HCl * AdvReac Severe prolonged Verified 04/24/19 09:05 [From Benadryl] QT droperidol [From Inapsine] AdvReac Severe prolonged Verified 04/24/19 09:05 QT erythromycin base AdvReac Severe prolonged Verified 04/24/19 09:05 [Erythromycin Base] QT levofloxacin [From Levaquin] AdvReac Severe prolonged Verified 04/24/19 09:05 QT prochlorperazine edisylate * AdvReac Severe prolonged Verified 04/24/19 09:05 [From Compazine] qt prochlorperazine maleate * AdvReac Severe prolonged Verified 04/24/19 09:05 [From Compazine] qt sertraline AdvReac Severe prolonged Verified 04/24/19 09:05 QT lactose AdvReac Intermediate Cramps Verified 04/24/19 09:05 Sulfa (Sulfonamide AdvReac Hallucinati Verified 04/24/19 09:05 Antibiotics) ons - Social History Does the pt smoke?: No Smoking Status: Never smoker Does the pt drink ETOH?: No Does the pt have substance abuse?: No - Immunizations Immunizations are current?: Yes - POLST Patient has POLST: No POLST Status: Full Code PD ED PE NORMAL - Vitals Vital signs reviewed: Yes - General General: Alert and oriented X 3, No acute distress, Well developed/nourished - HEENT HEENT: Pharynx benign - Neck Neck: Supple, no meningeal sign, No adenopathy - Cardiac Cardiac: RRR, No murmur - Respiratory Respiratory: Clear bilaterally - Abdomen Abdomen: Soft, Non tender - Back Back: No CVA TTP - Derm Derm: Normal color, Warm and dry - Extremities Extremities: No tenderness to palpate, Normal ROM s pain, No calf tenderness / cord, Other (1+ edema in both legs) Results - Vitals Vitals: Vital Signs - 24 hr 04/24/19 04/24/19 04/24/19 09:00 12:45 12:51 Temperature 35.6 C L Heart Rate 75 78 74 Respiratory 20 14 16 Rate Blood Pressure 141/86 H 124/77 116/75 O2 Saturation 98 100 100 04/24/19 04/24/19 13:03 13:43 Temperature 36.5 C Heart Rate 75 79 Respiratory 75 H 14 Rate Blood Pressure 119/82 H 119/79 O2 Saturation 99 99 Oxygen O2 Source Room air - Labs Labs: Laboratory Tests 04/24/19 04/24/19 04/24/19 09:53 09:53 09:53 WBC 5.3 RBC 3.59 L Hgb 11.5 L Hct 36.1 L MCV 100.6 H MCH 32.0 H MCHC 31.9 L RDW 13.4 Plt Count 233 MPV 10.4 Neut # (Auto) 2.2 Lymph # (Auto) 2.5 [place] # (Auto) 0.3 Eos # (Auto) 0.2 Baso # (Auto) 0.1 Absolute Nucleated RBC 0.00 Nucleated RBC % 0.0 Sodium 141 Potassium 4.1 Chloride 107 Carbon Dioxide 24 Anion Gap 10.0 BUN 12 Creatinine 0.6 Estimated GFR (MDRD) 114 Glucose 102 H Calcium 9.2 Magnesium 2.3 Total Bilirubin 0.7 AST 34 ALT 36 Alkaline Phosphatase 78 B-Natriuretic Peptide 9 Total Protein 6.9 Albumin 3.8 Globulin 3.1 Albumin/Globulin Ratio 1.2 Lipase 49 - Rads (name of study) chest xray Radiology: Prelim report reviewed (normal), See rad report duplex legs Radiology: Prelim report reviewed (no dvts), See rad report PD MEDICAL DECISION MAKING - ED course Complexity details: reviewed results, re-evaluated patient, considered differential, d/w patient Departure - Departure Disposition: 01 Home, Self Care Clinical Impression: Bilateral leg edema Dyspnea Qualifiers: Dyspnea type: shortness of breath Qualified Code(s): R06.02 - Shortness of breath Condition: Stable Record reviewed to determine appropriate education?: Yes Instructions: ED Dyspnea Shortness of Breath, ED Edema Legs Bilateral Follow-Up: Bonita Breaux MARKETING CONTENT SPECIALIST [Primary Care Provider] - Prescriptions: Albuterol Sulf [Ventolin Hfa Inhaler] 1 - 2 puffs INH Q4HR PRN #1 inhaler PRN Reason: Shortness Of Air/Wheezing Compress.stocking,Knee,Reg,Lrg [Relief Knee Close Toe] 1 each MC DAILY #1 each hydroCHLOROthiazide [Hydrochlorothiazide] 25 mg PO DAILY #10 tablet Comments: Your chest x-ray is clear and there is no signs of heart failure based on that and blood tests. Your kidney function is also good. Blood count and electrolytes are good as well. Your shortness of breath may be a mild viral illness or just some bronchial irritation. Potentially could use an inhaler if needed if you feel short of breath. The edema in your legs I presume is related to gravity and impaired return circulation. The ultrasound did not show any signs of blood clots. Therefore elevate and rest your legs often but being up and having some walks during the day will help decrease the swelling as well. Use some compressive socks during the day and that will help the swelling as well. You might benefit from a mild diuretic for a week or so as well. Follow-up with your primary care later in the week or early next week. Discharge Date/Time: 04/24/19 14:23
[2019-04-24 13:44] VITALS: BP 119/79
== END 2019-04-24 14:23 | disposition home or self-care (01) ==
LOC: EDUNIT# → ED 08:59
DX: R60.0 Localized edema (principal); R06.02 Shortness of breath; Z79.82 Long term (current) use of aspirin
CPT/HCPCS: 36415; 71046; 80053; 83690; 83735; 83880; 85025; 93970; 96374; 99284

== ENCOUNTER 2019-04-29 22:23 | Emergency (ER) | payer MEDICAID ==
--- NOTE | 2019-04-29 23:04 | ED Physician Documentation ---
History of Present Illness - Stated complaint Stated Complaint: CP/TIRED - Chief complaint Chief Complaint: Cardiac - History obtained from History obtained from: Patient, Family - History of Present Illness Timing: Today Pain level max: 8 Pain level now: 0 - Additonal information Additional information: 33-year-old female presents to the emergency department stating that her ICD fired tonight. She states that she felt a sharp pain in her chest, lasted 1 to 2 seconds. Asymptomatic since that time. Nothing makes it better or worse Patient states that she spoke with her engineer process, Dr. Demarco who advised her to come in for evaluation. Patient also states that she has been feeling suicidal increasingly over the past few weeks. Saw her psychiatrist who tried her on medications but states that they did not help. She states that she does not believe she is going to act on her feelings but is scared that she might. She is requesting voluntary hospitalization. 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 : None HEENT: None Psych: Depression, Anxiety, Panic attacks Musculoskeletal: None Derm: None - Past Surgical History Past Surgical History: Yes General: Cholecystectomy, EGD Cardiovascular: Pacemaker - Present Medications Home Medications: Ambulatory Orders Medication Instructions Recorded Confirmed Ascorbic Acid [C-500] 1 tab PO DAILY 05/21/14 04/30/19 Ferrous Gluconate 1 tab PO BID 05/21/14 04/30/19 LORazepam [Lorazepam] 0.5 mg PO Q12H PRN 05/21/14 04/30/19 Ezra Cit/Mag/D3/Zn/Armoring Machine Operator/[place]/Bor 1 tab PO BID 12/10/16 04/30/19 [Citracal-Vit D + Magnesium Tab] Cholecalciferol (Vitamin D3) 1,000 units PO BID 12/10/16 04/30/19 [Vitamin D3] Magnesium 500 mg PO DAILY 12/10/16 04/30/19 Ubidecarenone [Co Q-10] 50 mg PO BID 12/10/16 04/29/19 Acetaminophen [Tylenol Extra 250 mg PO PRN PRN 04/03/18 04/30/19 Strength] Docusate Sodium 250Mg Capsule 250 mg PO BID 04/03/18 04/30/19 [Colace 250Mg Capsule] Ibuprofen 600 mg PO PRN PRN 04/03/18 04/30/19 Levetiracetam [Keppra] 1,500 mg PO BID 04/03/18 04/30/19 Pantoprazole [Protonix] 40 mg PO DAILY 04/03/18 04/30/19 Topiramate [Topamax] 25 mg PO BID 04/03/18 04/29/19 Calcium Carbonate [Tums (Calcium 500 mg PO BID PRN #20 tablet 06/09/18 04/30/19 Carbonate 500mg)] DULoxetine [Cymbalta] 30 mg PO BID 02/09/19 04/30/19 raNITIdine [Zantac] 150 mg PO DAILY 02/09/19 04/29/19 Chlorhexidine Gluconate [Hibiclens] 15 ml TP DAILY #236 ml 03/25/19 04/30/19 Albuterol Sulf [Ventolin Hfa 1 - 2 puffs INH Q4HR PRN #1 inhaler 04/24/19 04/30/19 Inhaler] Compress.stocking,Knee,Reg,Lrg 1 each MC DAILY #1 each 04/24/19 04/30/19 [Relief Knee Close Toe] hydroCHLOROthiazide 25 mg PO DAILY #10 tablet 04/24/19 04/29/19 [Hydrochlorothiazide] Lactobac No.41/Bifidobact No.7 70 mg PO DAILY 04/30/19 04/30/19 [Probiotic-10 3 Billion Cell Cp] Magnesium Oxide [Magnesium] 500 mg PO DAILY 04/30/19 04/30/19 Potassium Chloride [Micro-K] 10 meq PO DAILY 04/30/19 04/30/19 Propranolol [Inderal] 10 mg PO DAILY 04/30/19 04/30/19 risperiDONE [RisperDAL] 0.5 mg PO DAILY 04/30/19 04/30/19 - Allergies Allergies/Adverse Reactions: Allergies Allergy/AdvReac Type Severity Reaction Status Date / Time meclizine Allergy Unknown Verified 04/24/19 09:05 venlafaxine Allergy Unknown Verified 04/29/19 22:35 azithromycin [From Zithromax] AdvReac Severe prolonged Verified 04/29/19 22:35 qt ciprofloxacin [From Cipro] AdvReac Severe prolonged Verified 04/29/19 22:35 QT ciprofloxacin HCl * AdvReac Severe prolonged Verified 04/29/19 22:35 [From Cipro] QT desipramine AdvReac Severe prolonged Verified 04/29/19 22:35 QT diphenhydramine HCl * AdvReac Severe prolonged Verified 04/29/19 22:35 [From Benadryl] QT droperidol [From Inapsine] AdvReac Severe prolonged Verified 04/29/19 22:35 QT erythromycin base AdvReac Severe prolonged Verified 04/29/19 22:35 [Erythromycin Base] QT levofloxacin [From Levaquin] AdvReac Severe prolonged Verified 04/29/19 22:35 QT prochlorperazine edisylate * AdvReac Severe prolonged Verified 04/29/19 22:35 [From Compazine] qt prochlorperazine maleate * AdvReac Severe prolonged Verified 04/24/19 09:05 [From Compazine] qt sertraline AdvReac Severe prolonged Verified 04/24/19 09:05 QT lactose AdvReac Intermediate Cramps Verified 04/24/19 09:05 Sulfa (Sulfonamide AdvReac Hallucinati Verified 04/24/19 09:05 Antibiotics) ons - Social History Does the pt smoke?: No Smoking Status: Never smoker Does the pt drink ETOH?: No Does the pt have substance abuse?: No - Immunizations Immunizations are current?: Yes - POLST Patient has POLST: No POLST Status: Full Code Results - Vitals Vitals: Vital Signs - 24 hr 04/29/19 04/29/19 04/29/19 22:35 22:43 23:52 Temperature 36.5 C Heart Rate 76 75 75 Respiratory 18 17 18 Rate Blood Pressure 116/71 110/67 O2 Saturation 98 100 100 04/30/19 04/30/19 04/30/19 01:10 02:44 04:27 Temperature Heart Rate 75 75 94 Respiratory 15 19 15 Rate Blood Pressure 113/77 92/59 L 93/61 O2 Saturation 95 95 94 Oxygen O2 Source Room air - EKG (time done) 2231 Rate: Rate (enter#) (75) Rhythm: Paced [place]: Normal Intervals: Normal OK QRS: Normal Ischemia: Normal ST segments - Labs Labs: Laboratory Tests 04/29/19 04/29/19 04/29/19 23:14 23:30 23:30 WBC 7.1 RBC 3.67 L Hgb 11.7 L Hct 36.3 L MCV 98.9 MCH 31.9 H MCHC 32.2 RDW 13.2 Plt Count 272 MPV 9.9 Neut # (Auto) 2.9 Lymph # (Auto) 3.5 [place] # (Auto) 0.4 Eos # (Auto) 0.2 Baso # (Auto) 0.1 Absolute Nucleated RBC 0.00 Nucleated RBC % 0.0 Sodium 141 Potassium 3.8 Chloride 104 Carbon Dioxide 28 Anion Gap 9.0 BUN 15 Creatinine 1.0 Estimated GFR (MDRD) 63 L Glucose 97 Calcium 9.4 Phosphorus 3.2 Magnesium 2.3 Total Bilirubin 0.8 AST 15 ALT 21 Alkaline Phosphatase 84 Total Protein 7.2 Albumin 4.2 Globulin 3.0 Albumin/Globulin Ratio 1.4 Lipase 47 TSH Urine Color YELLOW Urine Clarity CLEAR Urine pH 8.5 H Ur Specific [place] 1.010 Urine Protein NEGATIVE Urine Glucose (UA) NEGATIVE Urine Ketones NEGATIVE Urine Occult Blood NEGATIVE Urine Nitrite NEGATIVE Urine Bilirubin NEGATIVE Urine Urobilinogen 0.2 (NORMAL) Ur Leukocyte Esterase NEGATIVE Ur Microscopic Review NOT INDICATED Urine Culture Comments NOT INDICATED Salicylates < 6.0 Urine Opiates Screen NEGATIVE Ur Oxycodone Screen NEGATIVE Urine Methadone Screen NEGATIVE Ur Propoxyphene Screen NEGATIVE Acetaminophen < 10 L Ur Barbiturates Screen NEGATIVE Ur Tricyclics Screen NEGATIVE Ur Phencyclidine Scrn NEGATIVE Ur Amphetamine Screen NEGATIVE U Methamphetamines Scrn NEGATIVE U Benzodiazepines Scrn POSITIVE H Urine Cocaine Screen NEGATIVE U Cannabinoids Screen NEGATIVE Ethyl Alcohol 10.2 04/29/19 23:30 WBC RBC Hgb Hct MCV MCH MCHC RDW Plt Count MPV Neut # (Auto) Lymph # (Auto) [place] # (Auto) Eos # (Auto) Baso # (Auto) Absolute Nucleated RBC Nucleated RBC % Sodium Potassium Chloride Carbon Dioxide Anion Gap BUN Creatinine Estimated GFR (MDRD) Glucose Calcium Phosphorus Magnesium Total Bilirubin AST ALT Alkaline Phosphatase Total Protein Albumin Globulin Albumin/Globulin Ratio Lipase TSH 2.86 Urine Color Urine Clarity Urine pH Ur Specific [place] Urine Protein Urine Glucose (UA) Urine Ketones Urine Occult Blood Urine Nitrite Urine Bilirubin Urine Urobilinogen Ur Leukocyte Esterase Ur Microscopic Review Urine Culture Comments Salicylates Urine Opiates Screen Ur Oxycodone Screen Urine Methadone Screen Ur Propoxyphene Screen Acetaminophen Ur Barbiturates Screen Ur Tricyclics Screen Ur Phencyclidine Scrn Ur Amphetamine Screen U Methamphetamines Scrn U Benzodiazepines Scrn Urine Cocaine Screen U Cannabinoids Screen Ethyl Alcohol - Rads (name of study) cxr Radiology: Prelim report reviewed, EMP read contemporaneously, See rad report (No acute disease) PD MEDICAL DECISION MAKING - ED course Complexity details: reviewed results, re-evaluated patient, considered differential, d/w patient, d/w family, d/w sap bw consultant ED course: 33-year-old female presents to the emergency department with a 1 to 2 seconds of sharp chest pain earlier tonight. Her pacemaker ICD was interrogated and did not fire. We will not change her medications at this time. No laboratory abnormalities. She is also suicidal, consulted tele-psychiatry, Dr. Sánchez who evaluated the patient and recommends voluntary inpatient hospitalization. Patient request voluntary hospitalization as well. We will try to place her, if she is unable to be placed tonight, we will follow-up with social work in the morning for placement. Patient is medically clear for psychiatric care. This document was made in part using voice recognition software. While efforts are made to proofread this document, sound alike and grammatical errors may occur. Contacted [facility], they are reviewing the file. Case was turned over in the morning to Dr. Alonso awaiting final disposition. Departure - Departure Clinical Impression: Atypical chest pain, Suicidal ideations, Palpitations Condition: Stable
[2019-04-29 23:24] LABS: MUDS CUTOFF CONCENTRATIONS CUTOFF CONC BELOW:
[2019-04-29 23:25] LABS: BILIRUBIN,URINE NEGATIVE (NEGATIVE); GLUCOSE, URINE (UA) NEGATIVE (NEGATIVE); KETONES,URINE (UA) NEGATIVE (NEGATIVE); LEUKOCYTE ESTERASE, URINE NEGATIVE (NEGATIVE); NITRITE,URINE NEGATIVE (NEGATIVE); OCCULT BLOOD,URINE NEGATIVE (NEGATIVE); PH,URINE 8.5 PH (5.0-7.5); PROTEIN,URINE NEGATIVE (NEGATIVE); UROBILINOGEN,URINE 0.2 (NORMAL) E.U./dL (NORMAL)
[2019-04-29 23:27] LABS: CLARITY,URINE CLEAR (CLEAR)
[2019-04-29 23:36] LABS: AMPHETAMINE SCREEN,URINE NEGATIVE (NEGATIVE); BENZODIAZEPINES SCREEN, URINE POSITIVE (NEGATIVE); COCAINE SCREEN URINE NEGATIVE (NEGATIVE); METHADONE SCREEN, URINE NEGATIVE (NEGATIVE); METHAMPHETAMINES SCREEN, URINE NEGATIVE (NEGATIVE); OPIATE SCREEN, URINE NEGATIVE (NEGATIVE); OXYCODONE SCREEN, URINE NEGATIVE (NEGATIVE); PROPOXYPHENE SCREEN, URINE NEGATIVE (NEGATIVE); TRICYCLIC ANTIDEPRESSANT,URINE NEGATIVE (NEGATIVE)
[2019-04-29 23:37] LABS: BASOPHILS # (AUTO) 0.1 10^3/uL (0.0-0.1); BASOPHILS % (AUTO) 1.3 %; EOSINOPHILS # (AUTO) 0.2 10^3/uL (0.0-0.7); EOSINOPHILS % (AUTO) 2.5 %; HGB - HEMOGLOBIN 11.7 g/dL (12.0-16.0); LYMPHOCYTES # (AUTO) 3.5 10^3/uL (1.5-3.5); LYMPHOCYTES % (AUTO) 49.5 %; MEAN CORPUSCULAR HEMOGLOBIN 31.9 pg (27.0-31.0); MEAN CORPUSCULAR HGB CONC 32.2 g/dL (32.0-36.0); MEAN CORPUSCULAR VOLUME 98.9 fL (81.0-99.0); MEAN PLATELET VOLUME 9.9 fL (7.9-10.8); MONOCYTES # (AUTO) 0.4 10^3/uL (0.0-1.0); MONOCYTES % (AUTO) 6.2 %; NEUTROPHILS # (AUTO) 2.9 10^3/uL (1.5-6.6); NEUTROPHILS % (AUTO) 40.4 %; PLT - PLATELET COUNT 272 10^3/uL (130-450); RED BLOOD COUNT 3.67 10^6/uL (4.20-5.40); RED CELL DISTRIBUTION WIDTH 13.2 % (12.0-15.0); WHITE BLOOD COUNT 7.1 x10^3/uL (4.8-10.8)
--- NOTE | 2019-04-29 23:41 | XRAY Report ---
Reason: chest pain Procedure Date: 04/29/2019 Accession Number: [id number] / [id number] Procedure: XR - Chest 1 View X-Ray CPT Code: 69587 FULL RESULT: EXAM: CHEST RADIOGRAPHY EXAM DATE: 04/29/2019 11:24 PM. CLINICAL HISTORY: Chest pain. COMPARISON: CHEST 2 VIEW 04/24/2019 9:44 AM. TECHNIQUE: 1 view. FINDINGS: Lungs/Pleura: No focal pneumonia or edema. No pleural effusion or pneumothorax. Mediastinum: Heart size not enlarged. No mediastinal shift. Other: Stable left pacemaker/AICD. IMPRESSION: No acute process seen in the chest. RADIA
[2019-04-29 23:51] LABS: ACETAMINOPHEN < 10 ug/mL (10-30); ALBUMIN 4.2 g/dL (3.2-5.5); ALBUMIN/GLOBULIN RATIO 1.4 (1.0-2.2); ALKALINE PHOSPHATASE 84 IU/L (42-121); ALT ALANINE AMINOTRANSFERASE 21 IU/L (10-60); AST ASPARTATE AMINOTRANSFERASE 15 IU/L (10-42); BILIRUBIN,TOTAL 0.8 mg/dL (0.2-1.0); BUN - BLOOD UREA NITROGEN 15 mg/dL (6-20); CALCIUM 9.4 mg/dL (8.5-10.3); CARBON DIOXIDE - CO2 28 mmol/L (21-32); CHLORIDE 104 mmol/L (101-111); GFR - MDRD 63 (>89); GLUCOSE 97 mg/dL (70-100); LIPASE 47 U/L (22-51); MAGNESIUM 2.3 mg/dL (1.7-2.8); PHOSPHORUS 3.2 mg/dL (2.5-4.6); SALICYLATE < 6.0 mg/dL; SODIUM 141 mmol/L (135-145); TOTAL PROTEIN 7.2 g/dL (6.7-8.2)
--- NOTE | 2019-04-30 00:10 | TELEPSYCH PHYS NOTE ---
Telepsych Note - CHIEF COMPLAINT/HX OF PRESENT ILLNESS Cheif Complaint and History of Present Illness: CC: suicidal thoughts HPI: PT is a 33y/o swf with h/o TBI and mood d/o who presents with c/o feeling depressed, hopeless and suicidal. She denied prior attempts but admits to SIb of picking her skin and pulling her hair. She denied thoughts of harm to others. PT said she hears satan and he sometimes tells her to harm herself or others but she denied acting on it. She sees shadows and lights. she denied feeling paranoid. She denied h/o trauma other than the TBI from cardiac arrest. she denied nightmares or flashbacks. She said her sleep varies and she is not sure how her energy is. She denied appetite changes, use of illicit drugs or alcohol. She does have a psychiatrist and therapist but does not feel her psychiatrist is s good fit and would like to discuss this with her treating physician once hospitalized. - SI/HI/SELF HARM SI/HI/SELF HARM (CURRENT OR HISTORY OF):: SI, Self Harm SI/HI/Self Harm Text (Current or History of):: Pt feeling hopeless and suicidal. She has been picking her skin and pulling her hair. She has visible hair loss - VIOLENCE/LEGAL/COLLATERAL Violence - Legal - Collateral: no violence - PSYCHIATRIC HX/TREATMENT HX Psychiatric: Depression, Anxiety, Panic attacks Psychiatric/Treatment Hx Other: Pt has been on multiple medications with no help. She has a pace maker and several meds that cause QT prolongation. She has been hospitalized once before for depression and had several ED visits. - DRUG/ALCOHOL HX Substance use/abuse/alcohol text: none - MEDICAL HX Does the pt have a hx of MRSA?: No Neurological History: Headaches, Seizure disorder, Other Eyes, Ears, Nose, Throat: None Cardiovascular: [place], Arrhythmia, Other Respiratory: None Skin: None Endocrine/Autoimmune: None Gastrointestinal: GERD Is Patient ?: No Urinary: None Musculoskeletal: None Blood Disorders: None - SURGICAL HX General: Cholecystectomy, EGD - HOME MEDICATIONS Home Meds (as last confirmed): Patient History Medication Instructions Recorded Confirmed Ascorbic Acid [C-500] 1 tab PO DAILY 05/21/14 12/10/16 Ferrous Gluconate 1 tab PO BID 05/21/14 12/10/16 LORazepam [Lorazepam] 0.5 mg PO Q12H PRN 05/21/14 12/10/16 Ezra Cit/Mag/D3/Zn/Fine Patcher/[place]/Bor 1 tab BID 12/10/16 12/10/16 [Citracal-Vit D + Magnesium Tab] Cholecalciferol (Vitamin D3) 1,000 units BID 12/10/16 12/10/16 [Vitamin D3] Magnesium 500 mg PO DAILY 12/10/16 12/10/16 Ubidecarenone [Co Q-10] 50 mg BID 12/10/16 12/10/16 Acetaminophen [Tylenol Extra 250 mg PO PRN PRN 04/03/18 04/03/18 Strength] Aspirin 162 mg PO PRN PRN 04/03/18 04/03/18 Docusate Sodium 250Mg Capsule 250 mg PO BID 04/03/18 04/03/18 [Colace 250Mg Capsule] Ibuprofen 600 mg PO PRN PRN 04/03/18 04/03/18 Levetiracetam [Keppra] 1,500 mg PO BID 04/03/18 04/03/18 Pantoprazole [Protonix] 40 mg PO DAILY 04/03/18 04/03/18 Propranolol [Inderal] 10 mg PO TID 04/03/18 04/03/18 Simethicone [Gas Relief] PRN 04/03/18 Topiramate [Topamax] 25 mg PO BID 04/03/18 04/03/18 DULoxetine [Cymbalta] 30 mg BID 02/09/19 02/09/19 LORazepam [Ativan] 0.25 mg 02/09/19 Levonorgestrel [Kyleena] 1 02/09/19 hydrOXYzine HCl [Hydroxyzine HCl] 25 mg TID PRN 02/09/19 02/09/19 raNITIdine [Zantac] 150 mg DAILY 02/09/19 02/09/19 - ALLERGIES Allergies (as last confirmed): Allergies Allergy/AdvReac Type Severity Reaction Status Date / Time meclizine Allergy Unknown Verified 04/24/19 09:05 venlafaxine Allergy Unknown Verified 04/29/19 22:35 azithromycin [From Zithromax] AdvReac Severe prolonged Verified 04/29/19 22:35 qt ciprofloxacin [From Cipro] AdvReac Severe prolonged Verified 04/29/19 22:35 QT ciprofloxacin HCl * AdvReac Severe prolonged Verified 04/29/19 22:35 [From Cipro] QT desipramine AdvReac Severe prolonged Verified 04/29/19 22:35 QT diphenhydramine HCl * AdvReac Severe prolonged Verified 04/29/19 22:35 [From Benadryl] QT droperidol [From Inapsine] AdvReac Severe prolonged Verified 04/29/19 22:35 QT erythromycin base AdvReac Severe prolonged Verified 04/29/19 22:35 [Erythromycin Base] QT levofloxacin [From Levaquin] AdvReac Severe prolonged Verified 04/29/19 22:35 QT prochlorperazine edisylate * AdvReac Severe prolonged Verified 04/29/19 22:35 [From Compazine] qt prochlorperazine maleate * AdvReac Severe prolonged Verified 04/24/19 09:05 [From Compazine] qt sertraline AdvReac Severe prolonged Verified 04/24/19 09:05 QT lactose AdvReac Intermediate Cramps Verified 04/24/19 09:05 Sulfa (Sulfonamide AdvReac Hallucinati Verified 04/24/19 09:05 Antibiotics) ons - FAMILY PSYCH/SUICIDE/SOCIAL HX-MENTAL Family - Suicide - Social Hx and Mental Status Exam: PT said she is unsure of her family history. She lives with her mother and her sister comes home occasionally. PT is single with no children. She denied h/o abuse. She says her friends try to be supportive. She has 2 AA's and is on disability. She denied access to guns or legal issues. MSE: Pt was dressed in a hospital gown. She did not provide eye contact. She has hair balding where she had been puling it. She was oriented and tried to provide history but displayed some clear cognitive impairment with mental slowing and delayed speech. She expressed feeling depressed with suicidal thoughts and CAH from satan occasionally telling her to harm herself or others. She sees lights as well. Pt endorsed feeling suicidal. She did not appear manic. insight and judgment were fair. - PATIENT PROBLEM LIST (1) Suicidal ideation Impression: patient having suicidal thoughts with SIb of skin picking and hair pulling (2) Hallucinations Impression: Pt endorsed CAH from satan and seeing lights. - TREATMENT/PHARMACOLOGICAL RECOMMENDATION Treatment - Pharmacological - Therapy Recommendations: 33y/o swf with h/o TBI, sz d/o and depression came in with c/o feeling depressed and suicidal. She admits to engaging in SIB but denied prior suicide attempts. PT has been having CAh from satan telling her to harm herself and at times, others. She denied acting on these commands. She denied substance issues. UDS shows benzos which she is prescribed. she lives with her mother and said her friends tell her she needs to move out, not realizing she needs helpl since her brain injury. she expressed feeling somewhat unsupported. She does not feel her psychiatrist is listening to her and that her meds have not been helpful for her depression or hallucinations. She is willing to come into the hospital voluntarily. She presents with a constricted affect, mild cognitive slowing and delayed speech. She expressed fear of acting on CAH. Recommend admit to psych for safety and stabilization. 1. Admit to inpatient psych for mood stabilization and safety 2. PRovide safety precautions 3. Continue verified meds for now and defer changes to inpatient treatment team due to complexity with allergies and medical issues, along with several prior trials that need coordinated with outpatient provider. - TIME SPENT & PROVIDER LOCATION Telepsych consultation conducted via videoconferencing: Yes List names and roles of persons who participated in consult: Patients mother was presents briefly with patients consent, but she left early in the assessment. Laquita the patient and Destini Sánchez were present Telepsych Provider Location: Destini Sánchez MD [place] Time Telepsych consult began: 02:30 Time Telepsych consult completed: 03:25
--- NOTE | 2019-04-30 13:49 | ED Physician Documentation ---
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 : None HEENT: None Psych: Depression, Anxiety, Panic attacks Musculoskeletal: None Derm: None - Past Surgical History Past Surgical History: Yes General: Cholecystectomy, EGD Cardiovascular: Pacemaker - Present Medications Home Medications: Ambulatory Orders Medication Instructions Recorded Confirmed Ascorbic Acid [C-500] 1 tab PO DAILY 05/21/14 04/30/19 Ferrous Gluconate 1 tab PO BID 05/21/14 04/30/19 LORazepam [Lorazepam] 0.5 mg PO Q12H PRN 05/21/14 04/30/19 Ezra Cit/Mag/D3/Zn/Internet Marketing Director/[place]/Bor 1 tab PO BID 12/10/16 04/30/19 [Citracal-Vit D + Magnesium Tab] Cholecalciferol (Vitamin D3) 1,000 units PO BID 12/10/16 04/30/19 [Vitamin D3] Magnesium 500 mg PO DAILY 12/10/16 04/30/19 Ubidecarenone [Co Q-10] 50 mg PO BID 12/10/16 04/29/19 Acetaminophen [Tylenol Extra 250 mg PO PRN PRN 04/03/18 04/30/19 Strength] Docusate Sodium 250Mg Capsule 250 mg PO BID 04/03/18 04/30/19 [Colace 250Mg Capsule] Ibuprofen 600 mg PO PRN PRN 04/03/18 04/30/19 Levetiracetam [Keppra] 1,500 mg PO BID 04/03/18 04/30/19 Pantoprazole [Protonix] 40 mg PO DAILY 04/03/18 04/30/19 Topiramate [Topamax] 25 mg PO BID 04/03/18 04/29/19 Calcium Carbonate [Tums (Calcium 500 mg PO BID PRN #20 tablet 06/09/18 04/30/19 Carbonate 500mg)] DULoxetine [Cymbalta] 30 mg PO BID 02/09/19 04/30/19 raNITIdine [Zantac] 150 mg PO DAILY 02/09/19 04/29/19 Chlorhexidine Gluconate [Hibiclens] 15 ml TP DAILY #236 ml 03/25/19 04/30/19 Albuterol Sulf [Ventolin Hfa 1 - 2 puffs INH Q4HR PRN #1 inhaler 04/24/19 04/30/19 Inhaler] Compress.stocking,Knee,Reg,Lrg 1 each MC DAILY #1 each 04/24/19 04/30/19 [Relief Knee Close Toe] hydroCHLOROthiazide 25 mg PO DAILY #10 tablet 04/24/19 04/29/19 [Hydrochlorothiazide] Lactobac No.41/Bifidobact No.7 70 mg PO DAILY 04/30/19 04/30/19 [Probiotic-10 3 Billion Cell Cp] Magnesium Oxide [Magnesium] 500 mg PO DAILY 04/30/19 04/30/19 Potassium Chloride [Micro-K] 10 meq PO DAILY 04/30/19 04/30/19 Propranolol [Inderal] 10 mg PO DAILY 04/30/19 04/30/19 risperiDONE [RisperDAL] 0.5 mg PO DAILY 04/30/19 04/30/19 - Allergies Allergies/Adverse Reactions: Allergies Allergy/AdvReac Type Severity Reaction Status Date / Time meclizine Allergy Unknown Verified 04/24/19 09:05 venlafaxine Allergy Unknown Verified 04/29/19 22:35 azithromycin [From Zithromax] AdvReac Severe prolonged Verified 04/29/19 22:35 qt ciprofloxacin [From Cipro] AdvReac Severe prolonged Verified 04/29/19 22:35 QT ciprofloxacin HCl * AdvReac Severe prolonged Verified 04/29/19 22:35 [From Cipro] QT desipramine AdvReac Severe prolonged Verified 04/29/19 22:35 QT diphenhydramine HCl * AdvReac Severe prolonged Verified 04/29/19 22:35 [From Benadryl] QT droperidol [From Inapsine] AdvReac Severe prolonged Verified 04/29/19 22:35 QT erythromycin base AdvReac Severe prolonged Verified 04/29/19 22:35 [Erythromycin Base] QT levofloxacin [From Levaquin] AdvReac Severe prolonged Verified 04/29/19 22:35 QT prochlorperazine edisylate * AdvReac Severe prolonged Verified 04/29/19 22:35 [From Compazine] qt prochlorperazine maleate * AdvReac Severe prolonged Verified 04/24/19 09:05 [From Compazine] qt sertraline AdvReac Severe prolonged Verified 04/24/19 09:05 QT lactose AdvReac Intermediate Cramps Verified 04/24/19 09:05 Sulfa (Sulfonamide AdvReac Hallucinati Verified 04/24/19 09:05 Antibiotics) ons tomato AdvReac Unknown Verified 04/30/19 12:25 - Social History Does the pt smoke?: No Smoking Status: Never smoker Does the pt drink ETOH?: No Does the pt have substance abuse?: No - Immunizations Immunizations are current?: Yes - POLST Patient has POLST: No POLST Status: Full Code PD ED PE NORMAL - Vitals Vital signs reviewed: Yes (normal) Results - Vitals Vitals: Vital Signs - 24 hr 04/29/19 04/29/19 04/29/19 22:35 22:43 23:52 Temperature 36.5 C Heart Rate 76 75 75 Respiratory 18 17 18 Rate Blood Pressure 116/71 110/67 O2 Saturation 98 100 100 04/30/19 04/30/19 04/30/19 01:10 02:44 04:27 Temperature Heart Rate 75 75 94 Respiratory 15 19 15 Rate Blood Pressure 113/77 92/59 L 93/61 O2 Saturation 95 95 94 04/30/19 04/30/19 04/30/19 05:26 06:13 08:11 Temperature Heart Rate 75 75 77 Respiratory 15 14 13 Rate Blood Pressure 98/64 111/73 107/71 O2 Saturation 94 94 96 04/30/19 04/30/19 08:28 12:53 Temperature Heart Rate 78 75 Respiratory 18 17 Rate Blood Pressure 109/60 105/63 O2 Saturation 100 96 Oxygen O2 Source Room air - Labs Labs: Laboratory Tests 04/29/19 04/29/19 04/29/19 23:14 23:30 23:30 WBC 7.1 RBC 3.67 L Hgb 11.7 L Hct 36.3 L MCV 98.9 MCH 31.9 H MCHC 32.2 RDW 13.2 Plt Count 272 MPV 9.9 Neut # (Auto) 2.9 Lymph # (Auto) 3.5 [place] # (Auto) 0.4 Eos # (Auto) 0.2 Baso # (Auto) 0.1 Absolute Nucleated RBC 0.00 Nucleated RBC % 0.0 Sodium 141 Potassium 3.8 Chloride 104 Carbon Dioxide 28 Anion Gap 9.0 BUN 15 Creatinine 1.0 Estimated GFR (MDRD) 63 L Glucose 97 Calcium 9.4 Phosphorus 3.2 Magnesium 2.3 Total Bilirubin 0.8 AST 15 ALT 21 Alkaline Phosphatase 84 Total Protein 7.2 Albumin 4.2 Globulin 3.0 Albumin/Globulin Ratio 1.4 Lipase 47 TSH Urine Color YELLOW Urine Clarity CLEAR Urine pH 8.5 H Ur Specific [place] 1.010 Urine Protein NEGATIVE Urine Glucose (UA) NEGATIVE Urine Ketones NEGATIVE Urine Occult Blood NEGATIVE Urine Nitrite NEGATIVE Urine Bilirubin NEGATIVE Urine Urobilinogen 0.2 (NORMAL) Ur Leukocyte Esterase NEGATIVE Ur Microscopic Review NOT INDICATED Urine Culture Comments NOT INDICATED Salicylates < 6.0 Urine Opiates Screen NEGATIVE Ur Oxycodone Screen NEGATIVE Urine Methadone Screen NEGATIVE Ur Propoxyphene Screen NEGATIVE Acetaminophen < 10 L Ur Barbiturates Screen NEGATIVE Ur Tricyclics Screen NEGATIVE Ur Phencyclidine Scrn NEGATIVE Ur Amphetamine Screen NEGATIVE U Methamphetamines Scrn NEGATIVE U Benzodiazepines Scrn POSITIVE H Urine Cocaine Screen NEGATIVE U Cannabinoids Screen NEGATIVE Ethyl Alcohol 10.2 04/29/19 23:30 WBC RBC Hgb Hct MCV MCH MCHC RDW Plt Count MPV Neut # (Auto) Lymph # (Auto) [place] # (Auto) Eos # (Auto) Baso # (Auto) Absolute Nucleated RBC Nucleated RBC % Sodium Potassium Chloride Carbon Dioxide Anion Gap BUN Creatinine Estimated GFR (MDRD) Glucose Calcium Phosphorus Magnesium Total Bilirubin AST ALT Alkaline Phosphatase Total Protein Albumin Globulin Albumin/Globulin Ratio Lipase TSH 2.86 Urine Color Urine Clarity Urine pH Ur Specific [place] Urine Protein Urine Glucose (UA) Urine Ketones Urine Occult Blood Urine Nitrite Urine Bilirubin Urine Urobilinogen Ur Leukocyte Esterase Ur Microscopic Review Urine Culture Comments Salicylates Urine Opiates Screen Ur Oxycodone Screen Urine Methadone Screen Ur Propoxyphene Screen Acetaminophen Ur Barbiturates Screen Ur Tricyclics Screen Ur Phencyclidine Scrn Ur Amphetamine Screen U Methamphetamines Scrn U Benzodiazepines Scrn Urine Cocaine Screen U Cannabinoids Screen Ethyl Alcohol PD MEDICAL DECISION MAKING - ED course Complexity details: reviewed old records, reviewed results, re-evaluated patient, considered differential, d/w patient ED course: 33 y/o female with SI and command hallucinations is voluntary and social service director is able to place patient at [facility]. Departure - Departure Disposition: 65 Psych Hosp/Unit DC/Xfer Clinical Impression: Atypical chest pain, Suicidal ideations, Palpitations, Hallucinations Condition: Stable
[2019-04-30 16:08] VITALS: BP 112/75
== END 2019-04-30 16:20 ==
LOC: ED 22:23
DX: R07.89 Other chest pain (principal); R45.851 Suicidal ideations; R00.2 Palpitations
CPT/HCPCS: 36415; 71045; 80053; 80306; 80307; 80320; 80329; 81003; 83690; 83735; 84100; 84443; 85025; 93005; 99281; 99285; G0426; Q3014; 81001; 87086

== ENCOUNTER 2019-05-18 20:56 | Outpatient (CLI) | payer MEDICAID | END 2019-05-18 20:57 | disposition EMS.NT | LOC: EMS 20:56 | PROVIDERS: ATTEND Surgery | DX: R56.9 Unspecified convulsions (principal) ==

== ENCOUNTER 2019-05-30 14:06 | Outpatient (CLI) | payer MEDICAID | END 2019-05-30 14:07 | disposition critical access hospital (66) | LOC: EMS 14:06 | PROVIDERS: ATTEND Surgery | DX: R56.9 Unspecified convulsions (principal) | CPT/HCPCS: A0425; A0429; A0999 ==

== ENCOUNTER 2019-05-30 14:30 | Emergency (ER) | payer MEDICAID ==
--- NOTE | 2019-05-30 15:52 | ED Physician Documentation ---
PD HPI SEIZURE - Stated complaint Stated Complaint: ARM SZ - Chief complaint Chief Complaint: Neuro - History obtained from History obtained from: Patient - History of Present Illness Timing - onset: How many days ago (several days of increased amount of her myoclonic twitching (which she calls seizures). No focal seizures.) Witnessed: Witnessed (her mom says there has been increased jerking. Patient has not seemed ill otherwise.) Number of seizures: Multiple (not seizures, but her myoclonic jerking/twitches.) Description of seizure activity: Generalized (random spasms bodywide, not in pattern nor rhythm.) Associated symptoms: Other (No URI sym[tp,s/). No: Headache, Vision changes, Dyspnea History of seizures: Known seizure disorder, Other (prior anoxic brain injury) Contributing factors: Other (denies current illness, nor change in meds.). No: Out of meds, Changed meds (last med change was Respirodone when in [place] couple months ago, no recent change in dose.), Fever, Sleep deprivation Similar symptoms before: Diagnosis (has seizures but also had muscle spasms. Sees Psych, Neuro, PMD.) Review of Systems Constitutional: denies: Fever, Chills Nose: denies: Rhinorrhea / runny nose, Congestion Throat: reports: Sore throat Respiratory: reports: Cough (very slight cough the past couple days, with mild sore throat. 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 HEENT: None Psych: Depression, Anxiety, Panic attacks Musculoskeletal: None Derm: None - Past Surgical History Past Surgical History: Yes General: Cholecystectomy, EGD Cardiovascular: Pacemaker - Present Medications Home Medications: Ambulatory Orders Medication Instructions Recorded Confirmed Ascorbic Acid [C-500] 1 tab PO DAILY 05/21/14 04/30/19 Ferrous Gluconate 1 tab PO BID 05/21/14 04/30/19 LORazepam [Lorazepam] 0.5 mg PO Q12H PRN 05/21/14 04/30/19 Ezra Cit/Mag/D3/Zn/Base Filler/[place]/Bor 1 tab PO BID 12/10/16 04/30/19 [Citracal-Vit D + Magnesium Tab] Cholecalciferol (Vitamin D3) 1,000 units PO BID 12/10/16 04/30/19 [Vitamin D3] Magnesium 500 mg PO DAILY 12/10/16 04/30/19 Ubidecarenone [Co Q-10] 50 mg PO BID 12/10/16 04/29/19 Acetaminophen [Tylenol Extra 250 mg PO PRN PRN 04/03/18 04/30/19 Strength] Docusate Sodium 250Mg Capsule 250 mg PO BID 04/03/18 04/30/19 [Colace 250Mg Capsule] Ibuprofen 600 mg PO PRN PRN 04/03/18 04/30/19 Levetiracetam [Keppra] 1,500 mg PO BID 04/03/18 04/30/19 Pantoprazole [Protonix] 40 mg PO DAILY 04/03/18 04/30/19 Topiramate [Topamax] 25 mg PO BID 04/03/18 04/29/19 Calcium Carbonate [Tums (Calcium 500 mg PO BID PRN #20 tablet 06/09/18 04/30/19 Carbonate 500mg)] DULoxetine [Cymbalta] 30 mg PO BID 02/09/19 04/30/19 raNITIdine [Zantac] 150 mg PO DAILY 02/09/19 04/29/19 Chlorhexidine Gluconate [Hibiclens] 15 ml TP DAILY #236 ml 03/25/19 04/30/19 Albuterol Sulf [Ventolin Hfa 1 - 2 puffs INH Q4HR PRN #1 inhaler 04/24/19 04/30/19 Inhaler] Compress.stocking,Knee,Reg,Lrg 1 each MC DAILY #1 each 04/24/19 04/30/19 [Relief Knee Close Toe] hydroCHLOROthiazide 25 mg PO DAILY #10 tablet 04/24/19 04/29/19 [Hydrochlorothiazide] Lactobac No.41/Bifidobact No.7 70 mg PO DAILY 04/30/19 04/30/19 [Probiotic-10 3 Billion Cell Cp] Magnesium Oxide [Magnesium] 500 mg PO DAILY 04/30/19 04/30/19 Potassium Chloride [Micro-K] 10 meq PO DAILY 04/30/19 04/30/19 Propranolol [Inderal] 10 mg PO DAILY 04/30/19 04/30/19 risperiDONE [RisperDAL] 0.5 mg PO DAILY 04/30/19 04/30/19 - Allergies Allergies/Adverse Reactions: Allergies Allergy/AdvReac Type Severity Reaction Status Date / Time aripiprazole [From Abilify] Allergy Unknown Verified 05/30/19 14:41 buspirone [From BuSpar] Allergy Unknown Verified 05/30/19 14:40 meclizine Allergy Unknown Verified 04/24/19 09:05 venlafaxine Allergy Unknown Verified 04/29/19 22:35 azithromycin [From Zithromax] AdvReac Severe prolonged Verified 04/29/19 22:35 qt ciprofloxacin [From Cipro] AdvReac Severe prolonged Verified 04/29/19 22:35 QT ciprofloxacin HCl * AdvReac Severe prolonged Verified 04/29/19 22:35 [From Cipro] QT desipramine AdvReac Severe prolonged Verified 04/29/19 22:35 QT diphenhydramine HCl * AdvReac Severe prolonged Verified 04/29/19 22:35 [From Benadryl] QT droperidol [From Inapsine] AdvReac Severe prolonged Verified 04/29/19 22:35 QT erythromycin base AdvReac Severe prolonged Verified 04/29/19 22:35 [Erythromycin Base] QT levofloxacin [From Levaquin] AdvReac Severe prolonged Verified 04/29/19 22:35 QT prochlorperazine edisylate * AdvReac Severe prolonged Verified 04/29/19 22:35 [From Compazine] qt prochlorperazine maleate * AdvReac Severe prolonged Verified 04/24/19 09:05 [From Compazine] qt sertraline AdvReac Severe prolonged Verified 04/24/19 09:05 QT lactose AdvReac Intermediate Cramps Verified 04/24/19 09:05 Sulfa (Sulfonamide AdvReac Hallucinati Verified 04/24/19 09:05 Antibiotics) ons tomato AdvReac Unknown Verified 04/30/19 12:25 - Social History Does the pt smoke?: No Smoking Status: Never smoker Does the pt drink ETOH?: No Does the pt have substance abuse?: No - Immunizations Immunizations are current?: Yes - POLST Patient has POLST: No POLST Status: Full Code PD ED PE NORMAL - Vitals Vital signs reviewed: Yes - General General: Alert and oriented X 3, No acute distress, Well developed/nourished - HEENT HEENT: Moist mucous membranes, Pharynx benign - Neck Neck: Supple, no meningeal sign, No adenopathy - Cardiac Cardiac: RRR, No murmur - Respiratory Respiratory: Clear bilaterally - Abdomen Abdomen: Soft, Non tender - Derm Derm: Normal color, Warm and dry - Neuro Neuro: Alert and oriented X 3, No motor deficit. No: Normal speech (deliberate slow speech pattern c/w her usual and s/p anoxic brain injury. ) Results - Vitals Vitals: Vital Signs - 24 hr 05/30/19 05/30/19 05/30/19 14:34 16:00 17:29 Temperature 36.5 C 36.5 C Heart Rate 74 76 76 Respiratory 18 16 16 Rate Blood Pressure 146/91 H 117/73 119/77 O2 Saturation 100 100 98 Oxygen O2 Source Room air - Labs Labs: Laboratory Tests 05/30/19 05/30/19 05/30/19 15:00 16:25 16:25 WBC 6.1 RBC 3.67 L Hgb 11.8 L Hct 36.5 L MCV 99.5 H MCH 32.2 H MCHC 32.3 RDW 12.7 Plt Count 262 MPV 9.8 Neut # (Auto) 2.9 Lymph # (Auto) 2.6 [place] # (Auto) 0.4 Eos # (Auto) 0.2 Baso # (Auto) 0.1 Absolute Nucleated RBC 0.00 Nucleated RBC % 0.0 Sodium 141 Potassium 4.0 Chloride 108 Carbon Dioxide 26 Anion Gap 7.0 BUN 11 Creatinine 0.7 Estimated GFR (MDRD) 95 Glucose 98 Calcium 9.6 Magnesium 2.2 Total Bilirubin 0.7 AST 21 ALT 23 Alkaline Phosphatase 81 Total Creatine Kinase 44 Total Protein 6.9 Albumin 3.8 Globulin 3.1 Albumin/Globulin Ratio 1.2 Lipase 45 Urine Color YELLOW Urine Clarity CLEAR Urine pH 8.0 H Ur Specific [place] 1.015 Urine Protein NEGATIVE Urine Glucose (UA) NEGATIVE Urine Ketones NEGATIVE Urine Occult Blood NEGATIVE Urine Nitrite NEGATIVE Urine Bilirubin NEGATIVE Urine Urobilinogen 0.2 (NORMAL) Ur Leukocyte Esterase NEGATIVE Ur Microscopic Review NOT INDICATED Urine Culture Comments NOT INDICATED PD MEDICAL DECISION MAKING - ED course Complexity details: reviewed results, considered differential (presents in usual interaction and speech pattern. WIth her increased muscle spasms/twitching bodywide, does not sound like seizures, so will look for infection/metabolic (electolyte) to see if abnormal. Get UA. ), d/w patient Departure - Departure Disposition: 01 Home, Self Care Clinical Impression: Myoclonic jerking Condition: Stable Record reviewed to determine appropriate education?: Yes Follow-Up: Bonita Breaux ARNP [Primary Care Provider] - Elías Gao MD [Physician No Access] - Comments: At this point your basic blood tests and urine test appear normal. Your liver kidney and electrolytes are good. Your white count is normal. No signs of bladder infection. I would continue usual medications. There could be potentially a viral illness coming on increasing your symptoms. I would just see how you do over the next few days. Discharge Date/Time: 05/30/19 17:33
[2019-05-30] MEDS ORDERED: LORazepam 0.5 MG TABLET PO STA (16:23)
[2019-05-30 16:41] LABS: BASOPHILS # (AUTO) 0.1 10^3/uL (0.0-0.1); BASOPHILS % (AUTO) 1.3 %; EOSINOPHILS # (AUTO) 0.2 10^3/uL (0.0-0.7); EOSINOPHILS % (AUTO) 2.9 %; HGB - HEMOGLOBIN 11.8 g/dL (12.0-16.0); LYMPHOCYTES # (AUTO) 2.6 10^3/uL (1.5-3.5); LYMPHOCYTES % (AUTO) 42.7 %; MEAN CORPUSCULAR HEMOGLOBIN 32.2 pg (27.0-31.0); MEAN CORPUSCULAR HGB CONC 32.3 g/dL (32.0-36.0); MEAN CORPUSCULAR VOLUME 99.5 fL (81.0-99.0); MEAN PLATELET VOLUME 9.8 fL (7.9-10.8); MONOCYTES # (AUTO) 0.4 10^3/uL (0.0-1.0); MONOCYTES % (AUTO) 5.7 %; NEUTROPHILS # (AUTO) 2.9 10^3/uL (1.5-6.6); NEUTROPHILS % (AUTO) 47.2 %; PLT - PLATELET COUNT 262 10^3/uL (130-450); RED BLOOD COUNT 3.67 10^6/uL (4.20-5.40); RED CELL DISTRIBUTION WIDTH 12.7 % (12.0-15.0); WHITE BLOOD COUNT 6.1 x10^3/uL (4.8-10.8)
[2019-05-30 16:42] LABS: BILIRUBIN,URINE NEGATIVE (NEGATIVE); GLUCOSE, URINE (UA) NEGATIVE (NEGATIVE); KETONES,URINE (UA) NEGATIVE (NEGATIVE); LEUKOCYTE ESTERASE, URINE NEGATIVE (NEGATIVE); NITRITE,URINE NEGATIVE (NEGATIVE); OCCULT BLOOD,URINE NEGATIVE (NEGATIVE); PROTEIN,URINE NEGATIVE (NEGATIVE); UROBILINOGEN,URINE 0.2 (NORMAL) E.U./dL (NORMAL)
[2019-05-30 16:43] LABS: CLARITY,URINE CLEAR (CLEAR)
[2019-05-30 16:52] LABS: ALBUMIN 3.8 g/dL (3.2-5.5); ALBUMIN/GLOBULIN RATIO 1.2 (1.0-2.2); BILIRUBIN,TOTAL 0.7 mg/dL (0.2-1.0); CALCIUM 9.6 mg/dL (8.5-10.3); CREATININE 0.7 mg/dL (0.4-1.0); MAGNESIUM 2.2 mg/dL (1.7-2.8); TOTAL PROTEIN 6.9 g/dL (6.7-8.2)
[2019-05-30 17:30] VITALS: BP 119/77
== END 2019-05-30 17:33 | disposition home or self-care (01) ==
LOC: ED 14:30
DX: G25.3 Myoclonus (principal)
CPT/HCPCS: 36415; 80053; 81003; 82550; 83690; 83735; 85025; 99283; 99284; A9270; 81001; 87086

== ENCOUNTER 2019-07-13 10:49 | Outpatient (CLI) | payer MEDICAID | END 2019-07-13 10:50 | disposition critical access hospital (66) | LOC: EMS 10:49 | PROVIDERS: ATTEND Surgery | DX: R55 Syncope and collapse (principal); R42 Dizziness and giddiness | CPT/HCPCS: A0425; A0429; A0999 ==

== ENCOUNTER 2019-07-13 11:11 | Emergency (ER) | payer MEDICAID ==
--- NOTE | 2019-07-13 11:41 | ED Physician Documentation ---
History of Present Illness - Stated complaint Stated Complaint: NEAR SYNCOPE - Chief complaint Chief Complaint: Neuro - History obtained from History obtained from: Patient - History of Present Illness Timing: Prior to arrival, Today - Additonal information Additional information: This is a 34-year-old woman who presents with complaints that she was at home with a her her caregiver and she had walked into her bedroom to gather some things to bring out the caregiver to help sort things. She suddenly got lightheaded and felt very short of breath and had trouble thinking. This happened approximately 2 hours prior to presentation. She says she laid down on her bed and then had some "myoclonic seizures". Is not uncommon for her to get those when she gets stressed. She is still feeling like she is having a hard time thinking. She had taken her medications this morning and had eaten some granola. She is complaining of being short of breath over the past few days. Denies a history of asthma or congestive heart failure. She has a history of prolonged QT syndrome went into cardiac arrest in 2011 and 2016 and then they placed a pacer. She is had very minimal cough has had some congestion in her chest for which she was taking guaifenesin and Mucinex. Denied any cardiac palpitations and she did not pass out. She is been nauseous but had no vo miting. No fever. Of note the patient was started on Lasix on June 23 because of worsening edema. No history of DVT. She lives with her mother. Patient denies . Review of Systems Constitutional: denies: Fever Eyes: denies: Loss of vision Ears: denies: Loss of hearing Nose: denies: Congestion Cardiac: reports: Pedal edema, Other (Has a pacemaker). denies: Palpitations Respiratory: reports: Dyspnea. denies: Cough GI: reports: Nausea. denies: Vomiting : denies: Dysuria Neurologic: reports: Generalized weakness, Difficulty speaking (Just cannot think.), Near syncope. denies: Syncope, Confused, Altered mental status, Headache, Head injury, LOC Endocrine: reports: Other (Not diabetic) PD PAST MEDICAL HISTORY - Past Medical History Cardiovascular: [place], Arrhythmia, Other Respiratory: None Neuro: Headaches, Seizure disorder, Other Endocrine/Autoimmune: None GI: GERD PARTY COORDINATOR: None : None HEENT: None Psych: Depression, Anxiety, Panic attacks Musculoskeletal: None Derm: None - Past Surgical History Past Surgical History: Yes General: Cholecystectomy, EGD Cardiovascular: Pacemaker - Present Medications Home Medications: Ambulatory Orders Medication Instructions Recorded Confirmed Ascorbic Acid [C-500] 1 tab PO DAILY 05/21/14 04/30/19 Ferrous Gluconate 1 tab PO BID 05/21/14 04/30/19 LORazepam [Lorazepam] 0.5 mg PO Q12H PRN 05/21/14 04/30/19 Ezra Cit/Mag/D3/Zn/Warehouse Examiner/[place]/Bor 1 tab PO BID 12/10/16 04/30/19 [Citracal-Vit D + Magnesium Tab] Cholecalciferol (Vitamin D3) 1,000 units PO BID 12/10/16 04/30/19 [Vitamin D3] Magnesium 500 mg PO DAILY 12/10/16 04/30/19 Ubidecarenone [Co Q-10] 50 mg PO BID 12/10/16 04/29/19 Acetaminophen [Tylenol Extra 250 mg PO PRN PRN 04/03/18 04/30/19 Strength] Docusate Sodium 250Mg Capsule 250 mg PO BID 04/03/18 04/30/19 [Colace 250Mg Capsule] Ibuprofen 600 mg PO PRN PRN 04/03/18 04/30/19 Levetiracetam [Keppra] 1,500 mg PO BID 04/03/18 04/30/19 Pantoprazole [Protonix] 40 mg PO DAILY 04/03/18 04/30/19 Topiramate [Topamax] 25 mg PO BID 04/03/18 04/29/19 Calcium Carbonate [Tums (Calcium 500 mg PO BID PRN #20 tablet 06/09/18 04/30/19 Carbonate 500mg)] DULoxetine [Cymbalta] 30 mg PO BID 02/09/19 04/30/19 raNITIdine [Zantac] 150 mg PO DAILY 02/09/19 04/29/19 Chlorhexidine Gluconate [Hibiclens] 15 ml TP DAILY #236 ml 03/25/19 04/30/19 Albuterol Sulf [Ventolin Hfa 1 - 2 puffs INH Q4HR PRN #1 inhaler 04/24/19 04/30/19 Inhaler] Compress.stocking,Knee,Reg,Lrg 1 each MC DAILY #1 each 04/24/19 04/30/19 [Relief Knee Close Toe] hydroCHLOROthiazide 25 mg PO DAILY #10 tablet 04/24/19 04/29/19 [Hydrochlorothiazide] Lactobac No.41/Bifidobact No.7 70 mg PO DAILY 04/30/19 04/30/19 [Probiotic-10 3 Billion Cell Cp] Magnesium Oxide [Magnesium] 500 mg PO DAILY 04/30/19 04/30/19 Potassium Chloride [Micro-K] 10 meq PO DAILY 04/30/19 04/30/19 Propranolol [Inderal] 10 mg PO DAILY 04/30/19 04/30/19 risperiDONE [RisperDAL] 0.5 mg PO DAILY 04/30/19 04/30/19 - Allergies Allergies/Adverse Reactions: Allergies Allergy/AdvReac Type Severity Reaction Status Date / Time aripiprazole [From Abilify] Allergy Unknown Verified 05/30/19 14:41 buspirone [From BuSpar] Allergy Unknown Verified 05/30/19 14:40 meclizine Allergy Unknown Verified 04/24/19 09:05 venlafaxine Allergy Unknown Verified 04/29/19 22:35 azithromycin [From Zithromax] AdvReac Severe prolonged Verified 04/29/19 22:35 qt ciprofloxacin [From Cipro] AdvReac Severe prolonged Verified 04/29/19 22:35 QT ciprofloxacin HCl * AdvReac Severe prolonged Verified 04/29/19 22:35 [From Cipro] QT desipramine AdvReac Severe prolonged Verified 04/29/19 22:35 QT diphenhydramine HCl * AdvReac Severe prolonged Verified 04/29/19 22:35 [From Benadryl] QT droperidol [From Inapsine] AdvReac Severe prolonged Verified 04/29/19 22:35 QT erythromycin base AdvReac Severe prolonged Verified 04/29/19 22:35 [Erythromycin Base] QT levofloxacin [From Levaquin] AdvReac Severe prolonged Verified 04/29/19 22:35 QT prochlorperazine edisylate * AdvReac Severe prolonged Verified 04/29/19 22:35 [From Compazine] qt prochlorperazine maleate * AdvReac Severe prolonged Verified 04/24/19 09:05 [From Compazine] qt sertraline AdvReac Severe prolonged Verified 04/24/19 09:05 QT lactose AdvReac Intermediate Cramps Verified 04/24/19 09:05 Sulfa (Sulfonamide AdvReac Hallucinati Verified 04/24/19 09:05 Antibiotics) ons tomato AdvReac Unknown Verified 04/30/19 12:25 - Social History Does the pt smoke?: No Smoking Status: Never smoker Does the pt drink ETOH?: No Does the pt have substance abuse?: No - Immunizations Immunizations are current?: Yes - POLST Patient has POLST: No POLST Status: Full Code PD ED PE NORMAL - Vitals Vital signs reviewed: Yes - General General: Alert and oriented X 3, No acute distress, Well developed/nourished, Other (Morbidly obese 34-year-old woman. She is very slow to answer any questions.) - HEENT HEENT: Atraumatic, PERRL, EOMI, Other (Pale). No: Moist mucous membranes - Neck Neck: No adenopathy. No: No JVD - Cardiac Cardiac: RRR, No murmur, Strong equal pulses - Respiratory Respiratory: No respiratory distress, Clear bilaterally - Abdomen Abdomen: Normal bowel sounds, Soft - Derm Derm: Other (She is pale) - Extremities Extremities: No deformity. No: No edema (2+ pitting edema of the lower extremities bilaterally) - Neuro Neuro: Alert and oriented X 3, casino controller 2-12 intact, No motor deficit, No sensory deficit, Normal speech - Psych Psych: Other (Flat affect) Results - Vitals Vitals: Vital Signs - 24 hr 07/13/19 07/13/19 07/13/19 11:14 11:30 12:00 Temperature 36.7 C Heart Rate 75 75 75 Respiratory 18 15 15 Rate Blood Pressure 114/65 116/57 L 108/63 O2 Saturation 99 17 L 95 07/13/19 07/13/19 07/13/19 12:30 13:08 13:33 Temperature Heart Rate 75 75 75 Respiratory 14 17 14 Rate Blood Pressure 108/65 107/67 102/56 L O2 Saturation 94 96 96 Oxygen O2 Source Room air - EKG (time done) 1117 Rate: Rate (enter#) (75) Rhythm: Paced (atrial pacing), Other Intervals: Normal [place]. No: Wide QRS Ischemia: Normal ST segments - Labs Labs: Laboratory Tests 07/13/19 07/13/19 07/13/19 11:40 12:10 12:10 WBC 6.2 RBC 3.85 L Hgb 12.2 Hct 37.7 MCV 97.9 MCH 31.7 H MCHC 32.4 RDW 12.9 Plt Count 231 MPV 9.4 Neut # (Auto) 3.1 Lymph # (Auto) 2.5 [place] # (Auto) 0.4 Eos # (Auto) 0.2 Baso # (Auto) 0.1 Absolute Nucleated RBC 0.00 Nucleated RBC % 0.0 Sodium 140 Potassium 3.8 Chloride 107 Carbon Dioxide 27 Anion Gap 6.0 BUN 12 Creatinine 0.7 Estimated GFR (MDRD) 95 Glucose 113 H Calcium 9.3 Magnesium 2.1 Total Bilirubin 0.8 AST 22 ALT 24 Alkaline Phosphatase 74 Troponin I High Sens Total Protein 7.0 Albumin 3.9 Globulin 3.1 Albumin/Globulin Ratio 1.3 Lipase 56 H Urine Color YELLOW Urine Clarity CLEAR Urine pH 7.0 Ur Specific [place] <=1.005 Urine Protein NEGATIVE Urine Glucose (UA) NEGATIVE Urine Ketones NEGATIVE Urine Occult Blood NEGATIVE Urine Nitrite NEGATIVE Urine Bilirubin NEGATIVE Urine Urobilinogen 0.2 (NORMAL) Ur Leukocyte Esterase NEGATIVE Ur Microscopic Review NOT INDICATED Urine Culture Comments NOT INDICATED Urine HCG, Qual NEGATIVE 07/13/19 12:10 WBC RBC Hgb Hct MCV MCH MCHC RDW Plt Count MPV Neut # (Auto) Lymph # (Auto) [place] # (Auto) Eos # (Auto) Baso # (Auto) Absolute Nucleated RBC Nucleated RBC % Sodium Potassium Chloride Carbon Dioxide Anion Gap BUN Creatinine Estimated GFR (MDRD) Glucose Calcium Magnesium Total Bilirubin AST ALT Alkaline Phosphatase Troponin I High Sens 3.4 Total Protein Albumin Globulin Albumin/Globulin Ratio Lipase Urine Color Urine Clarity Urine pH Ur Specific [place] Urine Protein Urine Glucose (UA) Urine Ketones Urine Occult Blood Urine Nitrite Urine Bilirubin Urine Urobilinogen Ur Leukocyte Esterase Ur Microscopic Review Urine Culture Comments Urine HCG, Qual - Rads (name of study) CXR Radiology: EMP read indepedently (neg acute), See rad report PD MEDICAL DECISION MAKING - ED course Complexity details: reviewed results, re-evaluated patient, d/w patient, d/w family ED course: Patient received a 500 cc bolus of saline. She stated that she was feeling better. Chest x-ray is clear EKG shows a paced rhythm. She is not anemic. Results were discussed with the patient and she will be discharged home for outpatient follow-up. Departure - Departure Disposition: 01 Home, Self Care Clinical Impression: Near syncope Condition: Good Instructions: ED Near Syncope Unkn Follow-Up: Bonita Breaux ARNP [Primary Care Provider] - Comments: Keep the appointment with your primary care provider in 2 days for reevaluation. Return to the emergency department if your symptoms recur or you have a loss of consciousness.
[2019-07-13 11:54] LABS: BILIRUBIN,URINE NEGATIVE (NEGATIVE); GLUCOSE, URINE (UA) NEGATIVE (NEGATIVE); KETONES,URINE (UA) NEGATIVE (NEGATIVE); LEUKOCYTE ESTERASE, URINE NEGATIVE (NEGATIVE); NITRITE,URINE NEGATIVE (NEGATIVE); OCCULT BLOOD,URINE NEGATIVE (NEGATIVE); PROTEIN,URINE NEGATIVE (NEGATIVE); UROBILINOGEN,URINE 0.2 (NORMAL) E.U./dL (NORMAL)
[2019-07-13 11:57] LABS: CLARITY,URINE CLEAR (CLEAR); HCG UR QUAL NEGATIVE
[2019-07-13] MEDS ORDERED: SODIUM CHLORIDE 0.9% 500 ML IV ONE (12:00)
[2019-07-13 12:15] LABS: BASOPHILS # (AUTO) 0.1 10^3/uL (0.0-0.1); BASOPHILS % (AUTO) 1.1 %; EOSINOPHILS # (AUTO) 0.2 10^3/uL (0.0-0.7); EOSINOPHILS % (AUTO) 2.7 %; HGB - HEMOGLOBIN 12.2 g/dL (12.0-16.0); LYMPHOCYTES # (AUTO) 2.5 10^3/uL (1.5-3.5); MEAN CORPUSCULAR HEMOGLOBIN 31.7 pg (27.0-31.0); MEAN CORPUSCULAR HGB CONC 32.4 g/dL (32.0-36.0); MEAN CORPUSCULAR VOLUME 97.9 fL (81.0-99.0); MEAN PLATELET VOLUME 9.4 fL (7.9-10.8); MONOCYTES # (AUTO) 0.4 10^3/uL (0.0-1.0); MONOCYTES % (AUTO) 6.4 %; NEUTROPHILS # (AUTO) 3.1 10^3/uL (1.5-6.6); NEUTROPHILS % (AUTO) 49.5 %; PLT - PLATELET COUNT 231 10^3/uL (130-450); RED BLOOD COUNT 3.85 10^6/uL (4.20-5.40); RED CELL DISTRIBUTION WIDTH 12.9 % (12.0-15.0); WHITE BLOOD COUNT 6.2 x10^3/uL (4.8-10.8)
--- NOTE | 2019-07-13 12:20 | XRAY Report ---
Reason: near syncope Procedure Date: 07/13/2019 Accession Number: [id number] / [id number] Procedure: XR - Chest 1 View X-Ray CPT Code: 49134 Final Report FULL RESULT: EXAM: CHEST RADIOGRAPHY EXAM DATE: 07/13/2019 11:47 AM. CLINICAL HISTORY: Near syncope. COMPARISON: CHEST 1 VIEW 04/29/2019 11:10 PM. TECHNIQUE: 1 view. FINDINGS: Lungs/Pleura: Unchange linear basilar pulmonary opacities likely reflect atelectasis. No new consolidation. No evidence for pleural effusion or pneumothorax. Mediastinum: Stable heart size and mediastinum. Stable position of leads for cardiac defibrillator. Other: No acute osseous thoracic abnormality evident. IMPRESSION: 1. No radiographic evidence for acute cardiopulmonary process. [facility]
[2019-07-13 12:32] LABS: ALBUMIN 3.9 g/dL (3.2-5.5); ALBUMIN/GLOBULIN RATIO 1.3 (1.0-2.2); BILIRUBIN,TOTAL 0.8 mg/dL (0.2-1.0); CALCIUM 9.3 mg/dL (8.5-10.3); CREATININE 0.7 mg/dL (0.4-1.0); MAGNESIUM 2.1 mg/dL (1.7-2.8)
[2019-07-13 13:34] VITALS: BP 102/56
== END 2019-07-13 14:12 | disposition home or self-care (01) ==
LOC: EDUNIT# → ED 11:11
DX: R55 Syncope and collapse (principal); R60.0 Localized edema; G40.909 Epilepsy, unspecified, not intractable, without status epilepticus; Z95.0 Presence of cardiac pacemaker; E66.01 Morbid (severe) obesity due to excess calories; Z68.39 Body mass index [BMI] 39.0-39.9, adult
CPT/HCPCS: 36415; 71045; 80053; 81001; 81003; 81025; 83690; 83735; 84484; 85025; 87086; 93005; 99284

== ENCOUNTER 2019-09-26 11:15 | Outpatient (CLI) | payer MEDICAID ==
[2019-09-26 13:45] VITALS: BP 118/84
--- NOTE | 2019-09-26 13:45 | SLEEP CARE CONSULTATION ---
Information from patient questionnaire entered by Marilu Trevino. I have reviewed and concur with the information entered by Marilu Trevino. This document represents the service I personally performed and the decisions made by me, Jb Modi MD, [facility]. History of Present Illness Reason for Visit: New patient Chief Complaint: reports: Other (Inconsisten sleep patters, bed late, up at 3am, sleep in, nap 2-3 times) Duration of Symptoms: unknown (1 - 20 years) Usual bedtime: 1300/1700/2000 Time it takes to fall asleep: less than 5 minutes Snores at night: No (but maybe snort ocassionally/gasp) Observed to quit breathing while asleep: Yes Number of times waking at night: 1-3 Reasons for waking at night: reports: Bathroom, Other (bad dreams or suddenly awake) Toss, Turn, or Twitch while sleeping: Yes Recalls having dreams: Yes Usually gets out of bed at: 0830 Feels refreshed in the morning: No (rarely) Morning headache: No Sleepy or fatigued during the day: Yes Ever fallen asleep while driving: Yes Takes day naps: Yes Dreams during day naps: Yes (sometimes) Additional HPI information: I had the pleasure of seeing Ms. Archer along with her mother today regarding the possibility of her having a sleep disorder. As you know, she is a 34 year old lady who complains of sleeping during the day and not sleeping at night. She states that she likes to nap in the living room because the sofa is more comfortable than her bed. She naps several times a day. In reviewing her sleep diary, she goes to bed around midnight to 2 am. It takes her approximately just a few minutes to fall asleep. She has been told that she snores at night. She has also been observed to stop breathing in her sleep. She can recall waking up on the average of 1 - 3 times during the night. Most of the time she wakes up because of having to use the bathroom. She has awakened because of her own snoring, choking, or having to gasp for air, especially if lying supine. There is a lot of tossing and turning in her sleep. No somniloquy (sleep talking) or somnambulism (sleep walking). Generally she can recall having dreams. In the morning she usually gets up out of the bed around 6 a.m. to noon not feeling refreshed nor rested. She usually does not have a morning headache. During the day she complains of feeling sleepy and fatigued. Her score on [place] Sleepiness Scale is 15 out of 21. She does not drive. She usually takes severa l naps during the day. Upon falling asleep during the day she reports having dreams. She has never had sleep paralysis, experienced cataplexy but reports symptoms of restless leg syndrome. She also reports having impaired concentration during the day. Subjective Initial [place] Sleepiness Scale score: 15 Past Medical History Past Medical History: reports: Arrythmia, Anemia, Anxiety, Depression, GERD, Other (PTSD, psychogenic non eppileptic seizures, edema, TBI, migrains, trichtillomaniahair pulling, dermatillomania, ICD, pacemaker, defibrillator, frequent/urgent urination from meds, suicidal ideations) Social History The patient's occupation is a [employer]. Patient is Single and lives in [place]. Have you smoked in the past 12 months: No Alcohol use: No Caffeine use: No Family History Family history of sleep disordered breathing: Yes Family Hx Sleep Apnea: Mother: Sleep apnea - Untreated, Father: Sleep apnea - Treated, Sibling: Snoring Allergies and Home Medications Drug allergies reviewed: Yes (lithium, sulfa, Wellbutrin, Buspar) Home medication list reviewed: Yes (lorazepam, risperidone, Keppra, propanolol, furosemide, Protonix, Topamax) Review of Systems Cardiovascular: reports: palpitations (on meds), irregular heart rate or pulse, leg or foot swelling, have to sleep sitting up (sometimes) Respiratory: reports: wheeze, sputum production, chronic cough (especially after waking when sleeping in bed) Gastrointestinal: reports: heartburn, nausea (with and without dairy), diarrhea (with and without dairy), abdominal pain Urinary: reports: incontinence (with coughs usually), frequency, urgency Neurological: reports: headaches, seizure, head trauma, disorientation, speech dysfunction, gait or balance problems Psychiatric: reports: anxiety, depression, other (PTSD) Ear/Nose/Throat: reports: dry mouth/throat, wisdom teeth removed Endocrine: reports: sluggishness, too hot or cold (*cold), increased urination, unexplained weakness Musculoskeletal: reports: joint pain, back pain, joint swelling, muscle pain or cramping, mobility problems, other (sometimes unable to lift/push self out of bed) Immunologic: reports: itching Physical Exam Vital signs obtained and entered by: Dr. Modi Blood Pressure: 118/84 Cuff size: regular Heart Rate: 88 O2 Saturation: 97 Height: 6 ft 1 in Weight: 322 lb Body Mass Index: 42.5 BMI Classification: Morbidly Obese Neck circumference: 15 HEENT: No craniofacial malformation Nostrils: patent to airflow Turbinates: normal Septum: midline Mouth and throat: narrow oropharynx Soft palate: long Hard palate: normal Uvula: normal Uvula visualization: 50% Mallampati Class II Tongue: normal in size Tonsils: small Chin and jaw: normal size and position Neck: normal w/o lymphadenopathy or thyromegaly Heart: regular rate and rhythm Lungs: clear bilaterally Abdomen: soft, non-tender Extremities: 1+ edema Neurologic: intact, no focal deficits Impression and Plan IMPRESSION: 1. Obstructive Sleep Apnea-Hypopnea Syndrome, as suggested by history of snoring, observed cessation of breath while asleep, cognitive impairment, and daytime hypersomnolence. Narrow oropharynx and obesity are common predisposing factors for obstructive sleep apnea-hypopnea syndrome. Pathophysiology of sleep-disordered breathing was discussed. I recommend proceeding to polysomnography to confirm the diagnosis and to assess severity. If she has significant sleep disordered breathing, a manual CPAP titration study will also be performed to find the optimal treatment pressure. I informed the patient of what the sleep studies involve and after some discussion, she agreed to proceed. 2. 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 Without having to stay engaged during the day, the patient ends up taking naps and then not sleeping much at night. The naps have now been part of her sleep-wake pattern. According to her, she is not bothered by her sleep-wake pattern. Therefore, I leave it up to her whether to fix it or leave it be. If she would like to a normal sleep-wake pattern, she will have to first not nap during the day. This will require not sitting around in the recliner where she can fall asleep. Because of her disabilities, this might not be possible. Also taking lorazepam in the morning will make it even more difficult. Plan: 1. Schedule an in-laboratory polysomnography. 2. Try to not nap during the day if she would like to sleep more at night and be more awake during the day. 3. Attempt to lose weight. 4. Return in 1 to 2 weeks after the study to discuss results and initiate therapy I spent 100% of this visit face to face with the patient with greater than 50% of this was spent time counseling the patient and coordination of care.
== END 2019-09-26 11:16 | disposition home or self-care (01) ==
LOC: SC 11:15
PROVIDERS: ATTEND Internal Medicine Pulmonary Disease
DX: G47.10 Hypersomnia, unspecified (principal); R41.89 Other symptoms and signs involving cognitive functions and awareness; R06.83 Snoring; R06.81 Apnea, not elsewhere classified; G47.20 Circadian rhythm sleep disorder, unspecified type; E66.01 Morbid (severe) obesity due to excess calories; Z68.41 Body mass index [BMI] 40.0-44.9, adult
CPT/HCPCS: 99203; 99212

== ENCOUNTER 2019-11-21 13:57 | Outpatient (CLI) | payer MEDICAID, MEDICARE ==
--- NOTE | 2019-11-21 10:59 | SLEEP CARE CONSULTATION ---
Information from patient questionnaire entered by Marilu Trevino. I have reviewed and concur with the information entered by Marilu Trevino. This document represents the service I personally performed and the decisions made by me, Jb Modi MD, [facility]. History of Present Illness Service Date and Time: 11/21/2019 1040 Initial [place] Sleepiness Scale score: 15 Additional HPI information: To minimize the risk of COVID-19 exposure, we have the option to conduct your visit with me over the phone. I will be able to discuss your health and offer medical advice. If you agree, we will bill your insurance. Do you agree to this telephone service: YES. HPI: Ms. Archer was called for follow up of the sleep study she had on 10/05/2019. Her mother also participated. The polysomnography showed that The patient had normal sleep efficiency. The sleep architecture was relatively normal considering the first-night effect. Respiratory monitoring showed no significant sleep disordered breathing (AHI = 4.0). There was mild hypoxia due to low-normal baseline oxygen saturation of 91% (july oxygen saturation of 82 %). The respiratory events occurred almost exclusively during supine sleep (supine AHI = 41.3; non-supine = 2.26). Snore was light to moderate in intensity. There was no significant periodic leg movement of sleep. Cardiac rhythm appeared to be paced at 75 beats per minute.. No abnormal behavior (parasomnia) observed during the night. The patient was informed of these findings. I explained to her that the sleep study showed mild hypoxemia due to low-normal baseline oxygen saturation, most likely from obesity hypoventilation. She said her primary care provider has ordered her home oxygen but faxed to prescription to the sleep center instead of a durable medical supplier. Allergies and Home Medications Drug allergies reviewed: Yes Home medication list reviewed: Yes Review of Systems Review of systems same as previous: Yes Physical Exam Height: 6 ft 1 in Impression and Plan IMPRESSION: 1. Hypoxemia, most likely from obesity hypoventilation. Oxygen supplement is indicated at night but the better treatment option is BiPAP therapy. In order to get her a BiPAP device, I recommend repeating the sleep study with her sleeping a little bit more on her back (her supine AHI was 41.3). In the meantime she may use home oxygen at night as prescribed by her primary care provider. She will notify her primary care provider to send the prescription of [facility]. PLAN: 1. Repeat in-laboratory polysomnography with the patient sleeping on her back for at least 1 hour. Because all sleep studies are temporarily on hold due to the COVID-19, we will call her to schedule once the sleep lab is back in operation. 2. Attempt to lose weight. Bariatric surgery appears indicated. 3. Have the oxygen prescription sent to [facility] in [place]. 4. Return for follow up after the sleep study. 5. Send a copy of this chart note to Tamika Cantu, the patients primary care provider. Visit Type: Telehealth Phone Other Participants: Other (mother) Location of Provider: Home Patient agrees and consents to this telehealth visit type: Yes Provider Statement: I spent 100% of the Telehealth Phone Call with the patient with greater than 50% spent counseling the patient and coordination of care.
== END 2019-11-21 13:58 | disposition home or self-care (01) ==
LOC: SC 13:57
PROVIDERS: ATTEND Internal Medicine Pulmonary Disease
DX: R09.02 Hypoxemia (principal)

== ENCOUNTER 2020-01-21 20:16 | Outpatient (CLI) | payer MEDICARE | END 2020-01-21 20:17 | disposition home or self-care (01) | LOC: SC 20:16 | PROVIDERS: ATTEND Internal Medicine Pulmonary Disease | DX: G47.33 Obstructive sleep apnea (adult) (pediatric) (principal); I49.9 Cardiac arrhythmia, unspecified; E66.01 Morbid (severe) obesity due to excess calories; Z68.41 Body mass index [BMI] 40.0-44.9, adult; Z95.810 Presence of automatic (implantable) cardiac defibrillator | CPT/HCPCS: 95810 ==

== ENCOUNTER 2020-01-26 16:40 | Outpatient (CLI) | payer MEDICARE | END 2020-01-26 16:41 | disposition short-term general hospital (02) | LOC: EMS 16:40 | PROVIDERS: ATTEND Surgery | DX: R09.89 Other specified symptoms and signs involving the circulatory and respiratory systems (principal); R55 Syncope and collapse; R45.851 Suicidal ideations | CPT/HCPCS: A0425; A0427 ==

== ENCOUNTER 2020-02-27 14:44 | Outpatient (CLI) | payer MEDICARE ==
[2020-02-27 15:56] VITALS: BP 100/60
--- NOTE | 2020-02-27 15:56 | SLEEP CARE CONSULTATION ---
Information from patient questionnaire entered by Suzette Elizondo. I have reviewed and concur with the information entered by Suzette Elizondo. This document represents the service I personally performed and the decisions made by me, Eulalia Murguia, RN, MSN, JOINT CUTTER MACHINE. History of Present Illness Service Date and Time: 02/27/2020 1444 Initial [place] Sleepiness Scale score: 15 (in 2020) Current [place] Sleepiness Scale score: 15 Additional HPI information: YOLI JACKSON returns with mother for follow up and results of the recently performed polysomnography. I explained the pathophysiology behind obstructive sleep apnea. We then spent quite a bit of time discussing different treatment options. For mild obstructive sleep apnea, surgery and oral appliance are alternatives to nasal CPAP therapy but in moderate or severe cases, nasal CPAP is the most effective and reliable treatment. Because apnea is primarily in supine position, then positional management therapy could be effective. Methods discussed such as positioning with pillows, using a T-shirt with tennis balls in the back, and shown commercial products that have a pillow format on back to prevent supine sleep. I reviewed the impact of weight changes on sleep apnea and strongly recommended losing weight. After some discussion, the patient opted to go with the nasal CPAP therapy. Nasal autoCPAP set at [id number] will be ordered with rationale explained. A manual titration study will be ordered if unable to find optimal pressure with office adjustments. I explained how CPAP machine works with sample devices Respironics Dreamstation and ResRotten Tomatoes [id number] and what to expect when using the machine. Using CPAP every night in order to get used to it was emphasized. Patient advised to put CPAP mask on before getting into bed so as not to fall asleep without CPAP. To assist acclimation to CPAP use, it could also be used for a short time during day while reading or watching TV. The patient was instructed to call the CPAP supplier to discuss any mechanical problem that may occur. If the mask given is uncomfortable or is difficult to keep on through the night even with adjustment, contact the CPAP supplier as many will replace with another mask style if notified before 30 days. If snoring or perceives is not getting enough air or too much air from the machine, notify this office. [facility] patient education PAP tips reviewed and given to patient. Patient counseled not drink alcohol less than 4 hours before bedtime as it can increase snoring and apnea. Patient does not drink alcohol. Patient was cautioned about risks of drowsy driving until sleepiness symptoms resolve. Patient denies drowsy driving as not currently driving. [facility] patient education on snoring and sleep apnea given and reviewed. Sleep Study - Results Type of Sleep Study: Polysomnography Polysomnography/Home Sleep Study results: The quality of the study is good. The patient had normal sleep efficiency. The sleep architecture was abnormal for lack of REM sleep. Respiratory monitoring showed mild obstructive sleep apnea-hypopnea (AHI = 7.9) associated with oxyhemoglobin desaturation and mild hypoxia (july oxygen saturation of 87%) but not sleep fragmentation. The respiratory events occurred almost exclusively during supine sleep (supine AHI = 10.9; nonsupine = 2.22). Baseline oxygen saturation was low-normal. Snore was loud in intensity. There was no significant periodic leg movement of sleep. Cardiac rhythm was paced at 75 beats per minute most of the time. The underlying rhythm was sinus. There are occasional to frequent premature ventricular contractions averaging 5 a minute. The defibrillation appeared to have fired twice. The first time was d uring a normal pacing activity. The second time was after a triplet of premature ventricular contractions. No abnormal behavior (parasomnia) observed during the night. Allergies and Home Medications Known drug allergies: Yes (see list ) Home medication list reviewed: No (changes noted below ) Allergy and home medication list: increased lorazepam 1mg dose 2-3 times daily for myoclonus Increased propanolol 120mg bid. added: amiodoarone 200mg bid for ventricular tachycardia arrhythmia mexiletine 150mg tid Review of Systems Review of systems same as previous: No (hospitalized 01/24-02/08 for vtach and sedated for 9 days. ) Physical Exam Blood Pressure: 100/60 Cuff size: large red Heart Rate: 51 (regular) O2 Saturation: 96 Height: 6 ft 1 in Weight: 312 lb Body Mass Index: 41.1 BMI Classification: Morbidly Obese Impression and Plan 1. Obstructive Sleep Apnea-Hypopnea Syndrome, mild, with lowest oxygen saturation of 87%. Probably this is the cause of the patients symptoms of unrefreshed sleep, and excessive daytime sleepiness. Positive pressure therapy could benefit arrthymia. As mentioned above, the patient will be started on nasal autoCPAP therapy with pressure set at 5-15 cmH2O until a titraton study can be completed to evaluate optimal pressure and Device mode for her underlying low normal oxyen. A manual titration study can determine if CPAP or BiPAP is best mode of treatment for her possible obesitiy hypoventilation. Compliance guidelines also reviewed. A copy of compliance guidelines will be given for reference at check out. Patient prefers a Respironics device. Because the apnea is more severe supine, I instructed to avoid sleeping supine using pillow positioning until able to start CPAP use. She has been sleeping in recliner with head elevated 30-40 degrees which can also be effecive to reduce apnea until CPAP available to use. Due to arrhythmia history, I will request an urgent set up of CPAP. 2. Cardiac arrhythmia, premature ventricular contractions, occasional to frequent. The defibrillation appeared to fire twice during study per report. The first time in normal pacing activity. The second time was after triplet of premature ventricular contractions. It appears that the first defibrillation was inappropriate per Dr. Modi review. The patient is recommended to have her device investigated. I will have her sleep study report sent to her associate software application engineer and a copy of this note. * Nasal auto CPAP therapy, pressure at 5-15 cm H2O. * Schedule manual titration study. * Attempt to lose weight. * Avoid alcohol consumption near bedtime. * Avoid supine sleep until using CPAP. * The patient is again cautioned about driving until sleepiness completely resolves. * Copy of sleep study and this visit note to be sent to patient associate software application engineer Dr. Tate at [facility] * Return one month after CPAP obtained. I will assess response to therapy and compliance at that time. Visit Type: In Office Time Spent with Patient (minutes): 45 Provider Statement: I spent 100% of the Face to Face Visit with the patient with greater than 50% spent counseling the patient and coordination of care.
== END 2020-02-27 14:45 | disposition home or self-care (01) ==
LOC: SC 14:44
PROVIDERS: ATTEND Nurse Practitioner Family
DX: G47.33 Obstructive sleep apnea (adult) (pediatric) (principal); I49.9 Cardiac arrhythmia, unspecified; E66.01 Morbid (severe) obesity due to excess calories; Z68.41 Body mass index [BMI] 40.0-44.9, adult
CPT/HCPCS: 99215; G0463; 99212

== ENCOUNTER 2020-05-09 14:03 | Outpatient (CLI) | payer MEDICARE, MEDICAID ==
[2020-05-09 15:16] VITALS: BP 112/70
--- NOTE | 2020-05-09 15:16 | SLEEP CARE CONSULTATION ---
Information from patient questionnaire entered by Suzette Elizondo. I have reviewed and concur with the information entered by Suzette Elizondo. This document represents the service I personally performed and the decisions made by me, Eulalia Murguia, RN, MSN, CAREER TECHNOLOGY TEACHER. History of Present Illness Service Date and Time: 05/09/2020 1403 Previous diagnosis: Mild, Obstructive Sleep Apnea-Hypopnea Syndrome AHI: 7.9 (in 2019) Reason for follow up: first compliance Accompanied by: mother Equipment type: CPAP Equipment obtained from: [facility] (getting supplies as needed) Mask style: Full face Mask brand: Respironics Backup mask available: No (keep current mask as spare when replaced ) Last cushion change: not since set up Prior sleep studies: Yes Year and Where: 2019 [facility] Type of Sleep Study: Polysomnography CPAP Compliance Data - Data Reviewed with Patient Average duration of nightly device use: 4.75 Compliance rate %: 73 Current pressure setting (cmH2O): 5-15 Humidity settin Heated hose setting: auto Average residual AHI: 1.5 (11.8cmH20 is 95% pressure range ) Subjective Missed days of use due to: reports: other (forgot to put mask on before sleep ) Patient concerns: reports: condensation in mask/hose (2-3 nights a week), dry mouth, nose, throat (if humidity lower than 7 ), other (difficult to turn on b nelda or side due to hose getting in way of sleep and waking her ). denies: aerophagia, mask discomfort, air blowing in eyes, mask leak noise, nasal congestion, epistaxis Observed to snore while using device: No Current pressure setting perceived as: comfortable On therapy, patient: reports: sleeping better (when she allows enough time / wake up 5:30-6am), awakening more refreshed, being more awake and alert during the day, more rested overall. denies: drowsiness while driving (does not drive ) Initial [place] Sleepiness Scale score: 15 (in 2019) Allergies and Home Medications Known drug allergies: Yes (see list ) Home medication list reviewed: No (reduced amiodarone 100mg AM, added? lamictal 100mg bid ) Review of Systems Review of systems same as previous: No (increase in mycolonic spasms and palpitations ) Physical Exam Blood Pressure: 112/70 Cuff size: long Heart Rate: 58 O2 Saturation: 97 Height: 6 ft 1 in Weight: 326 lb Weight change since last visit: gained 10 pounds Body Mass Index: 43.0 BMI Classification: Morbidly Obese Impression and Plan 1. Obstructive Sleep Apnea-Hypopnea Syndrome, mild , with good treatment compliance and good apnea control. On CPAP therapy, the patient has better sleep quality and is more rested overall. To prevent falling asleep without CPAP, she is to put mask on before getting into bed. To reduce condensation, she can increase her heated hose or reduce her humidity. Rationale why to change settings discussed. To reduce sleep fragmentation , methods to keep hose out of way to sleep discussed. One method is to place the hose behind pillow or over headboard of bed. There is also a hose langley pole that can be placed under the mattress and is available for purchase online. To improve sleep efficiency, she is advised to regulate her sleep schedule starting with wake time and going to bed about 16 hours but only when sleepy with rationale discussed. She had questions about her Res Med device and were answered with sample device. Patient has gained weight. Currently patients BMI is 41.1 obesity class . Obesity increases the risk of apnea, CPAP pressure requirements and overall health risks especially cardiovascular and diabetes. Thus patient is advised to lose weight. Weight loss can be done with reducing portion size, reducing refined foods and balancing content with vegetables, fruit and protein. Also eating more slowly will allow more awareness of food intake and enjoyment of food while assisting patient to modify intake at each meal. A diet consultation can be helpful in achieving optimal weight loss goals. The BMI chart was reviewed. Patient encouraged to discuss their weight loss goals with their PCP and consider a referral to a quality management nurse. The patient's CPAP pressure range should accommodate her weight loss. Symptoms to report for additional pressure adjustment discussed. Patient's apnea severity and rationale for treatment to reduce apnea, improve sleep quality and reduce cardiovascular and cerebrovascular events was reviewed. I also reviewed the benefit of consistent device use of CPAP for arrhythmia, depression/anxiety, . * Continue auto CPAP pressure at 4-15 cmH2O * Adjust humidity and heated hose. * Consider hose langley * Notify me if snoring with mask or feeling that the pressure is too much or too little * Attempt to lose weight * Follow up with PCP for diet consult. * Call this office if any problems using CPAP * Return for follow up in 3 months , or sooner if concerns arise Visit Type: In Office Time Spent with Patient (minutes): 45 Provider Statement: I spent 100% of the Face to Face Visit with the patient with greater than 50% spent counseling the patient and coordination of care.
== END 2020-05-09 14:04 | disposition home or self-care (01) ==
LOC: SC 14:03
PROVIDERS: ATTEND Nurse Practitioner Family
DX: G47.33 Obstructive sleep apnea (adult) (pediatric) (principal); E66.01 Morbid (severe) obesity due to excess calories; Z68.41 Body mass index [BMI] 40.0-44.9, adult
CPT/HCPCS: 99215; G0463; 99212

== ENCOUNTER 2020-05-11 10:51 | Outpatient (CLI) | payer MEDICARE, MEDICAID | END 2020-05-11 10:52 | disposition short-term general hospital (02) | LOC: EMS 10:51 | PROVIDERS: ATTEND Surgery | DX: R00.1 Bradycardia, unspecified (principal); R53.83 Other fatigue; R11.0 Nausea; Z95.810 Presence of automatic (implantable) cardiac defibrillator | CPT/HCPCS: A0425; A0427 ==

== ENCOUNTER 2020-06-02 20:24 | Outpatient (CLI) | payer MEDICARE, MEDICAID | END 2020-06-02 20:25 | disposition short-term general hospital (02) | LOC: EMS 20:24 | PROVIDERS: ATTEND Surgery | DX: R42 Dizziness and giddiness (principal); I49.9 Cardiac arrhythmia, unspecified | CPT/HCPCS: A0425; A0427 ==

== ENCOUNTER 2020-06-19 07:51 | Outpatient (CLI) | payer MEDICARE, MEDICAID | END 2020-06-19 07:52 | disposition critical access hospital (66) | LOC: EMS 07:51 | PROVIDERS: ATTEND Surgery | DX: M25.562 Pain in left knee (principal); M25.521 Pain in right elbow; W18.39XA Other fall on same level, initial encounter; Y92.002 Bathroom of unspecified non-institutional (private) residence as the place of occurrence of the external cause | CPT/HCPCS: A0425; A0429 ==

== ENCOUNTER 2020-06-19 08:18 | Emergency (ER) | payer MEDICARE, MEDICAID ==
--- NOTE | 2020-06-19 10:07 | ED Physician Documentation ---
History of Present Illness - Stated complaint Stated Complaint: GLF - Chief complaint Chief Complaint: Trauma Ext - History obtained from History obtained from: Patient - Additonal information Additional information: And complaining of left knee hip and lower back pain after taking a fall at home. Patient states that she twisted as she went down and feels that there was a "pop" in her left knee.The time and got wedged between the bathtub and the toilet. She is also complaining of some low back pain. Patient denies any other complaints at this time. She did not hit her head or lose consciousness. She did not try to ambulate after the incident, but EMS was called. No other complaints at this time. Review of Systems Ten Systems: 10 systems reviewed and negative Constitutional: reports: Reviewed and negative Eyes: reports: Reviewed and negative Ears: reports: Reviewed and negative Nose: reports: Reviewed and negative Throat: reports: Reviewed and negative Cardiac: reports: Reviewed and negative Respiratory: reports: Reviewed and negative GI: reports: Reviewed and negative : reports: Reviewed and negative Skin: reports: Reviewed and negative Musculoskeletal: reports: Back pain, Joint pain (L knee). denies: Neck pain Neurologic: reports: Reviewed and negative Psychiatric: reports: Reviewed and negative Endocrine: reports: Reviewed and negative Immunocompromised: reports: Reviewed and negative PD PAST MEDICAL HISTORY - Past Medical History Past Medical History: Yes Cardiovascular: [place], Arrhythmia, Other Respiratory: Sleep apnea, CPAP use Neuro: Head injury, Headaches, Seizure disorder, Other Endocrine/Autoimmune: HyPOthyroidism GI: GERD TELEVISION EQUIPMENT OPERATOR: None : None HEENT: Chronic vision loss Psych: Depression, Anxiety, Panic attacks, Post traumatic stress disorder Musculoskeletal: None Derm: Other - Past Surgical History Past Surgical History: Yes General: Cholecystectomy, EGD, Other Cardiovascular: Pacemaker, AICD - Present Medications Home Medications: Ambulatory Orders Medication Instructions Recorded Confirmed Ferrous Gluconate 1 tab PO DAILY 05/21/14 06/19/20 LORazepam [Lorazepam] 0.5 mg PO Q12H PRN 05/21/14 06/19/20 Ezra Cit/Mag/D3/Zn/Garment Patternmaker/[place]rence/Bor 1 tab PO DAILY PM 12/10/16 06/19/20 [Citracal-D3 Plus Magnesium Tab] Cholecalciferol (Vitamin D3) 1,000 units PO BID 12/10/16 06/19/20 [Vitamin D3] Ubidecarenone [Co Q-10] 100 mg PO BID 12/10/16 06/19/20 Acetaminophen [Tylenol Extra 250 mg PO PRN PRN 04/03/18 06/19/20 Strength] Levetiracetam [Keppra] 1,500 mg PO BID 04/03/18 06/19/20 Pantoprazole [Protonix] 40 mg PO DAILY 04/03/18 06/19/20 Topiramate [Topamax] 25 mg PO BID 04/03/18 06/19/20 DULoxetine [Cymbalta] 30 mg PO BID 02/09/19 06/19/20 Albuterol Sulf [Ventolin Hfa 1 - 2 puffs INH Q4HR PRN #1 inhaler 04/24/19 06/19/20 Inhaler] Compress.stocking,Knee,Reg,Lrg 1 each MC DAILY #1 each 04/24/19 06/19/20 [Relief Knee Close Toe] Lacto No.41/B.bifid/B.animalis 70 mg PO BID 04/30/19 06/19/20 [Probiotic-10 3 Billion Cell Cp] Magnesium Oxide [Magnesium] 500 mg PO BID 04/30/19 06/19/20 Potassium Chloride [Micro-K] 20 meq PO BID 04/30/19 06/19/20 Amiodarone [Pacerone] 200 mg PO BID 06/19/20 06/19/20 Amox/Clav 500/125 [Augmentin 1 tab ORAL BID 06/19/20 06/19/20 500/125] Levothyroxine Sodium 50 mcg PO DAILY 06/19/20 06/19/20 Midodrine HCl 5 mg PO TID PRN 06/19/20 06/19/20 Propranolol HCl [Propranolol HCl 120 mg ORAL BID 06/19/20 06/19/20 ER] Topiramate [Topamax] 25 mg PO BID 06/19/20 06/19/20 - Allergies Allergies/Adverse Reactions: Allergies Allergy/AdvReac Type Severity Reaction Status Date / Time aripiprazole [From Abilify] Allergy Unknown Verified 06/19/20 08:31 bupropion [From Wellbutrin] Allergy Hallucinati Verified 06/19/20 08:32 ons buspirone [From BuSpar] Allergy Unknown Verified 06/19/20 08:31 lithium Allergy Unknown Verified 06/19/20 08:32 meclizine Allergy Unknown Verified 06/19/20 08:31 venlafaxine Allergy Unknown Verified 06/19/20 08:31 azithromycin [From Zithromax] AdvReac Severe prolonged Verified 06/19/20 08:31 qt ciprofloxacin [From Cipro] AdvReac Severe prolonged Verified 06/19/20 08:31 QT ciprofloxacin HCl * AdvReac Severe prolonged Verified 06/19/20 08:31 [From Cipro] QT desipramine AdvReac Severe prolonged Verified 06/19/20 08:31 QT diphenhydramine HCl * AdvReac Severe prolonged Verified 06/19/20 08:31 [From Benadryl] QT droperidol [From Inapsine] AdvReac Severe prolonged Verified 06/19/20 08:31 QT erythromycin base AdvReac Severe prolonged Verified 06/19/20 08:31 [Erythromycin Base] QT levofloxacin [From Levaquin] AdvReac Severe prolonged Verified 06/19/20 08:31 QT prochlorperazine edisylate * AdvReac Severe prolonged Verified 06/19/20 08:31 [From Compazine] qt prochlorperazine maleate * AdvReac Severe prolonged Verified 06/19/20 08:31 [From Compazine] qt sertraline AdvReac Severe prolonged Verified 06/19/20 08:31 QT lactose AdvReac Intermediate Cramps Verified 06/19/20 08:31 Sulfa (Sulfonamide AdvReac Hallucinati Verified 06/19/20 08:31 Antibiotics) ons tomato AdvReac Unknown Verified 06/19/20 08:31 - Social History Does the pt smoke?: No Smoking Status: Never smoker Does the pt drink ETOH?: No Does the pt have substance abuse?: No - Immunizations Immunizations are current?: Yes - POLST Patient has POLST: No POLST Status: Full Code PD ED PE NORMAL - Vitals Vital signs reviewed: Yes - General General: Alert and oriented X 3, No acute distress, Well developed/nourished - HEENT HEENT: Atraumatic, PERRL, EOMI, Moist mucous membranes - Neck Neck: Supple, no meningeal sign - Cardiac Cardiac: Strong equal pulses - Respiratory Respiratory: No respiratory distress - Abdomen Abdomen: Soft, Non tender, Non distended - Back Back: No CVA TTP, Other (Moderate tenderness, superior lumbar spine. Exam limited, secondary to patient's obesity.) - Derm Derm: Warm and dry - Extremities Extremities: No deformity, Other (Tenderness over left lateral hip without palpable deformity. Left medial knee tenderness without palpable deformity. Quadriceps tendon and patellar ligament intact.) - Neuro Neuro: Alert and oriented X 3, wool grader 2-12 intact, Normal speech, Other (Grossly intact) - Psych Psych: Normal mood, Normal affect Results - Vitals Vitals: Vital Signs - 24 hr 06/19/20 06/19/20 06/19/20 08:33 08:41 11:32 Temperature 36.8 C 36.8 C Heart Rate 57 L 53 L 55 L Respiratory 14 14 20 Rate Blood Pressure 122/67 125/79 112/63 O2 Saturation 100 98 100 Oxygen O2 Source Room air - Rads (name of study) L knee Xr Radiology: Final report received, EMP read indepedently, See rad report (neg) L hip XR Radiology: Final report received, EMP read indepedently, See rad report (neg) Lumbar spine XR Radiology: Final report received, EMP read indepedently, See rad report (neg) PD MEDICAL DECISION MAKING - ED course Complexity details: reviewed old records, reviewed results, re-evaluated p atient, considered differential, d/w patient, d/w family ED course: Patient was worked up with x-rays of the left knee and hip, as well as lumbar spine, all of which were unremarkable. Pt has been given a knee brace, and we have discussed the usual indications for return and follow-up. Departure - Departure Disposition: 01 Home, Self Care Clinical Impression: Fall Qualifiers: Encounter type: initial encounter Qualified Code(s): W19.XXXA - Unspecified fall, initial encounter Back strain Qualifiers: Encounter type: initial encounter Qualified Code(s): S39.012A - Strain of muscle, fascia and tendon of lower back, initial encounter Condition: Stable Instructions: ED Low Back Pain Injury, ED Sprain Knee Comments: All of your x-rays look good. There is no evidence of broken bones anywhere. Please wear the knee brace as needed. You may use ice, ibuprofen and Tylenol, if you are able to take these, as needed for the discomfort. Please follow-up with your primary care physician if you are not feeling better in the next couple of weeks. Discharge Date/Time: 06/19/20 13:27
--- NOTE | 2020-06-19 11:15 | XRAY Report ---
PROCEDURE: Lumbar Spine 2 View INDICATIONS: fall/pain TECHNIQUE: 2 views of the lumbar spine were acquired. COMPARISON: None. FINDINGS: Bones: 5 [id number] vertebrae are present. There is normal bony alignment. No vertebral body compression fractures. No suspicious bony lesions. Soft tissues: Overlying bowel gas pattern is normal. No suspicious soft tissue calcifications. IMPRESSION: No gross acute compression fracture or spondylolisthesis is seen in the lumbar spine. Reviewed by: Getachew Gandara MD on 06/19/2020 10:14 AM [facility] Approved by: Getachew Gandara MD on 06/19/2020 10:14 AM [facility] Station ID: [id number]
--- NOTE | 2020-06-19 11:16 | XRAY Report ---
PROCEDURE: Knee 3 View LT INDICATIONS: fall/pain TECHNIQUE: 3 views of the left knee(s) were acquired. COMPARISON: None. FINDINGS: Bones: No fractures or dislocations. No suspicious bony lesions. No patellar subluxation. Soft tissues: No joint effusion. No suspicious soft tissue calcifications. IMPRESSION: No acute left knee fracture or dislocation. Reviewed by: Getachew Gandara MD on 06/19/2020 10:14 AM [facility] Approved by: Getachew Gandara MD on 06/19/2020 10:14 AM [facility] Station ID: [id number]
--- NOTE | 2020-06-19 11:16 | XRAY Report ---
PROCEDURE: Hip w/Pelvis 2-3V LT INDICATIONS: fall/pain TECHNIQUE: AP pelvis with lateral view(s) of the left hip(s). COMPARISON: None. FINDINGS: Bones: No fractures or dislocations. Pelvic ring appears intact. Mild symmetric appearing bilateral hip joint osteoarthritic changes are seen. No evidence of avascular necrosis of femoral head. No lincoln picious bony lesions. Soft tissues: The visualized bowel gas pattern is normal. No suspicious soft tissue calcifications. IMPRESSION: No gross acute left hip fracture or dislocation. No evidence of avascular necrosis. Mild symmetric appearing bilateral hip joint osteoarthritis. Reviewed by: Getachew Gandara MD on 06/19/2020 10:15 AM [facility] Approved by: Getachew Gandara MD on 06/19/2020 10:15 AM [facility] Station ID: [id number]
[2020-06-19 11:35] VITALS: BP 112/63
== END 2020-06-19 13:27 | disposition home or self-care (01) ==
LOC: EDUNIT# → ED 08:18
DX: S39.012A Strain of muscle, fascia and tendon of lower back, initial encounter (principal); X50.1XXA Overexertion from prolonged static or awkward postures, initial encounter; W19.XXXA Unspecified fall, initial encounter; Y92.002 Bathroom of unspecified non-institutional (private) residence as the place of occurrence of the external cause; M25.562 Pain in left knee; M25.552 Pain in left hip; Z95.0 Presence of cardiac pacemaker
CPT/HCPCS: 72100; 99283; 99284

== ENCOUNTER 2020-08-08 11:32 | Outpatient (CLI) | payer MEDICARE, MEDICAID ==
--- NOTE | 2020-08-08 11:53 | SLEEP CARE CONSULTATION ---
Information from patient questionnaire entered by Kenton Garcia. I have reviewed and concur with the information entered by Kenton Garcia. This document represents the service I personally performed and the decisions made by , Amy An ARNP. History of Present Illness Service Date and Time: 08/08/2020 1120 Previous diagnosis: Mild, Obstructive Sleep Apnea-Hypopnea Syndrome AHI: 7.9 (in 2019) Reason for follow up: three month (followup) Equipment type: CPAP Equipment obtained from: [employer] (getting supplies as needed) Mask style: Full face Backup mask available: No (keep old mask when replaced) Last cushion change: 4 months Prior sleep studies: Yes Year and Where: 2019 - [facility] Type of Sleep Study: Polysomnography HPI additional information: YOLI JACKSON was diagnosed to have mild, AHI 7.9, obstructive sleep apnea- hypopnea syndrome and returns via Telehealth visit today for CPAP therapy three month follow-up. Sleep Study - Results Type of Sleep Study: Polysomnography Prior sleep studies: Yes Year and Where: 2019 - [facility] CPAP Compliance Data - Data Reviewed with Patient Average duration of nightly device use: 5 h 13 min Compliance rate %: 63 Current pressure setting (cmH2O): 5-15 (median 7.3, average 10.5 and max 11.6) Average residual AHI: 0.9 Central apnea: 0.2 Obstructive apnea: 0.4 Subjective Missed days of use due to: reports: other (sleeping in recliner and harder to remember to put mask on) Patient concerns: reports: mask discomfort, condensation in mask/hose (in hose), dry mouth, nose, throat (dry mouth if she changes temperature of moisture setting). denies: aerophagia, air blowing in eyes, mask leak noise, nasal congestion, epistaxis, other Observed to snore while using device: No Current pressure setting perceived as: comfortable On therapy, patient: reports: sleeping better, awakening more refreshed, being more awake and alert during the day, more rested overall, other (she does not drive) Initial [place] Sleepiness Scale score: 15 (in 2019) Allergies and Home Medications Drug allergies reviewed: Yes (see list in chart) Home medication list reviewed: Yes Allergy and home medication list: increased amiodarone 200 mg bid Levothyroxine 50 mcg daily Lamotrigene 150 mg bid Duloxetine 40 mg AM; 30 mg PM Review of Systems Review of systems same as previous: No (hypothyroidism) Physical Exam Vital signs obtained and entered by: Telehealth visit to reduce exposure during Covid pandemic Height: 6 ft Impression and Plan 1. Obstructive Sleep Apnea-Hypopnea Syndrome, mild, with fair treatment compliance and good apnea control. On CPAP therapy, the patient has better sleep quality and is more rested overall. She has been falling asleep in her recliner and not wearing her CPAP for a few nights. I advised her to set an alarm for going to bed that will wake her up so she may go to bed and put on the mask. She feels the headgear may be too small. I advised her to talk to her DME supplier to send a larger headgear set when she is due for a new set. She voiced understanding. She has been having some condensation in her tubing. She has her humidity at 7 and her heated hose at 78 degrees. I advised her to increase heated hose temperature to reduce condensation. She voiced understanding. Patient would like to keep pressure setting where it is at, since she feels it is comfortable and doing good for her. Patient's apnea severity and rationale for treatment to reduce apnea, improve sleep quality and reduce cardiovascular and cerebrovascular events was reviewed. I also reviewed the benefit of consistent device use of CPAP for arrhythmia and depression/anxiety. * Continue auto CPAP pressure at 5-15 cmH2O * Notify me if snoring with mask or feeling that the pressure is too much or too little * Attempt to lose weight * Call this office if any problems using CPAP * Return for follow up in 6 months, or sooner if concerns arise Counseling Topics: Spare mask Visit Type: Telehealth Video Video Type: Doximity Patient Location: Home Location of Provider: Office Patient agrees and consents to this telehealth visit type: Yes Patient agrees to have their insurance billed: Yes Time Spent with Patient (minutes): 23 Provider Statement: I spent 100% of the Telehealth Video Call with the patient with greater than 50% spent counseling the patient and coordination of care.
== END 2020-08-08 11:33 | disposition home or self-care (01) ==
LOC: SC 11:32
PROVIDERS: ATTEND Nurse Practitioner Family
DX: G47.33 Obstructive sleep apnea (adult) (pediatric) (principal)

== ENCOUNTER 2020-09-08 10:30 | Outpatient (CLI) | payer MEDICARE, MEDICAID | END 2020-09-08 10:31 | disposition EMS.NT | LOC: EMS 10:30 | PROVIDERS: ATTEND Surgery | DX: S40.012A Contusion of left shoulder, initial encounter (principal); W18.39XA Other fall on same level, initial encounter; W22.09XA Striking against other stationary object, initial encounter; Y92.000 Kitchen of unspecified non-institutional (private) residence as the place of occurrence of the external cause ==

== ENCOUNTER 2020-12-18 17:02 | Outpatient (CLI) | payer MEDICARE, MEDICAID | END 2020-12-18 17:03 | disposition home or self-care (01) | LOC: COV 17:02 | PROVIDERS: ATTEND Student in an Organized Health Care Education/Training Program | DX: Z01.812 Encounter for preprocedural laboratory examination (principal); Z20.822 Contact with and (suspected) exposure to COVID-19 ==

== ENCOUNTER 2021-01-03 11:03 | Outpatient (CLI) | payer MEDICARE, MEDICAID | END 2021-01-03 11:04 | disposition EMS.NT | LOC: EMS 11:03 | DX: R41.0 Disorientation, unspecified (principal) ==

== ENCOUNTER 2021-02-12 11:15 | Outpatient (CLI) | payer MEDICARE, MEDICAID ==
--- NOTE | 2021-02-12 12:14 | SLEEP CARE CONSULTATION ---
Information from patient questionnaire entered by Suzette Elizondo. I have reviewed and concur with the information entered by Suzette Elizondo. This document represents the service I personally performed and the decisions made by me, Amy An ARNP. History of Present Illness Service Date and Time: 02/12/2021 1115 Previous diagnosis: Mild, Obstructive Sleep Apnea-Hypopnea Syndrome AHI: 7.9 (in 2019) Reason for follow up: six month Equipment type: CPAP Equipment obtained from: [employer] (getting supplies as needed) Mask style: Full face Mask brand: Resmed Backup mask available: Yes (old mask) Last cushion change: 1 month Prior sleep studies: Yes Year and Where: 2019 - [facility] Type of Sleep Study: Polysomnography HPI additional information: YOLI AJCKSON was diagnosed to have mild, AHI 7.9, obstructive sleep apnea- hypopnea syndrome and returned today with mother for CPAP therapy six month follow-up. CPAP Compliance Data - Data Reviewed with Patient Average duration of nightly device use: 4 hr 59 min Compliance rate %: 44 (180 days) Current pressure setting (cmH2O): 5-15 Humidity settin Average residual AHI: 1.0 Subjective Missed days of use due to: reports: mask issues, illness, other (dental pain, forget when not in pain) Patient concerns: reports: aerophagia (more in last 1-2 months, not sure it is related to CPAP), mask discomfort (!!), condensation in mask/hose (daily). denies: air blowing in eyes, mask leak noise, nasal congestion, dry mouth, nose, throat, epistaxis, other Observed to snore while using device: No Current pressure setting perceived as: comfortable On therapy, patient: reports: sleeping better, awakening more refreshed, being more awake and alert during the day, more rested overall. denies: drowsiness while driving Initial [place] Sleepiness Scale score: 15 (in 2019) Current [place] Sleepiness Scale score: 20 Allergies and Home Medications Home medication list reviewed: Yes (Levothyroxine, Augmentin last month for dental issues) Review of Systems Review of systems same as previous: No (Dental pain, treated last month; getting a new pacemaker later this month) Physical Exam Heart Rate: 61 O2 Saturation: 97 Height: 6 ft Weight: 340 lb Body Mass Index: 46.0 BMI Classification: Morbidly Obese Impression and Plan 1. Obstructive Sleep Apnea-Hypopnea Syndrome, mild, with poor treatment compliance and good apnea control. On CPAP therapy, the patient has better sleep quality and is more rested overall. She is getting her pacemaker replaced at the end of this month and then she will be able to take care of her teeth. She has been having some dental pain that has interfered with her using her CPAP machine. In about 2.5 months she will have a dental procedure to remove molars. Since she was treated with the Augmentin and other anti-inflammatories she states the pain has improved. I advised her to increase use of her CPAP machine to get the best benefit. Compliance guidelines reviewed for insurance coverage. Patient is encouraged to use CPAP with all sleep, including naps. Patient is also remembering to put on her CPAP mask. To prevent falling asleep without CPAP, patient advised to set a bedtime alarm on their phone for use while watching TV on couch or in bed. She voiced understanding and agreement with this plan of care. We discussed adjusting her pressures since she has had some bloating in the morning. She has not been using her machine as much in the last couple of months when his bloating has been more problematic. Patient would like to continue pressure at current setting and feels the bloating may be due to stomach or digestion issues. Patient is also having lots of condensation in her mask when she uses it. She does not get any oral dryness when she does use her CPAP machine. I advised her to reduce her humidity by one increment to see if this will reduce the condensation. If she continues to have condensation in the mask she may increase the heated hose setting. She voiced understanding. Patient's apnea severity and rationale for treatment to reduce apnea, improve sleep quality and reduce cardiovascular and cerebrovascular events was reviewed. I also reviewed the benefit of consistent device use of CPAP for arrhythmia, depression and anxiety. * Continue auto CPAP pressure at 5-15 cmH2O * Set a bedtime alarm to remind patient to put on mask * Notify me if snoring with mask or feeling that the pressure is too much or too little * Attempt to lose weight * Call this office if any problems using CPAP * Return for follow up in 1-2 months to recheck compliance, or sooner if concerns arise Counseling Topics: Spare mask, Weight loss health impact Visit Type: In Office Other Participants: Other (Mother) Time Spent with Patient (minutes): 25 Provider Statement: I spent 100% of the Face to Face Visit with the patient with greater than 50% spent counseling the patient and coordination of care.
== END 2021-02-12 11:16 | disposition home or self-care (01) ==
LOC: SC 11:15
PROVIDERS: ATTEND Nurse Practitioner Family
DX: G47.33 Obstructive sleep apnea (adult) (pediatric) (principal); E66.01 Morbid (severe) obesity due to excess calories; Z68.42 Body mass index [BMI] 45.0-49.9, adult
CPT/HCPCS: 99213; G0463; 99212

== ENCOUNTER 2021-02-26 07:00 | Outpatient (CLI) | payer MEDICARE, MEDICAID | END 2021-02-26 23:59 | disposition home or self-care (01) | LOC: COV 07:00 | PROVIDERS: ATTEND Internal Medicine Cardiovascular Disease | DX: Z01.812 Encounter for preprocedural laboratory examination (principal); Z95.810 Presence of automatic (implantable) cardiac defibrillator; Z20.822 Contact with and (suspected) exposure to COVID-19 ==

== ENCOUNTER 2021-04-10 14:05 | Outpatient (CLI) | payer MEDICARE, MEDICAID ==
--- NOTE | 2021-04-10 15:01 | SLEEP CARE CONSULTATION ---
Information from patient questionnaire entered by Suzette Elizondo. I have reviewed and concur with the information entered by Suzette Elizondo. This document represents the service I personally performed and the decisions made by , Amy An ARNP. History of Present Illness Service Date and Time: 04/10/2021 1405 Previous diagnosis: Mild, Obstructive Sleep Apnea-Hypopnea Syndrome AHI: 7.9 (in 2019) Reason for follow up: other (6 week) Accompanied by: Mother Equipment type: CPAP Equipment obtained from: [employer] (getting supplies as needed) Mask style: Full face Mask brand: Respironics (Dreamwear) Backup mask available: Yes (old mask) Prior sleep studies: Yes Year and Where: 2019 - [facility] Type of Sleep Study: Polysomnography HPI additional information: YOLI JACKSON was diagnosed to have mild, AHI 7.9, obstructive sleep apnea- hypopnea syndrome and returned today for CPAP therapy 6 week follow-up. CPAP Compliance Data - Data Reviewed with Patient Average duration of nightly device use: 2 hr 22 min Compliance rate %: 3 Current pressure setting (cmH2O): 5-15 Humidity settin Average residual AHI: 0.3 Subjective Missed days of use due to: reports: mask issues, illness, other (dental pain, other) Patient concerns: reports: aerophagia (stomache), mask discomfort, condensation in mask/hose, nasal congestion, dry mouth, nose, throat, other (dental pain and swelling means mask doesn't fit). denies: air blowing in eyes, mask leak noise Observed to snore while using device: No Current pressure setting perceived as: comfortable On therapy, patient: reports: sleeping better, awakening more refreshed, being more awake and alert during the day, more rested overall. denies: drowsiness while driving Initial [place] Sleepiness Scale score: 15 (in 2019) Current [place] Sleepiness Scale score: 18 Allergies and Home Medications Home medication list reviewed: Yes (raised dose of Augmentin, continues for jaw infection from dental issues) Review of Systems Review of systems same as previous: No (surgery scheduled May 20; New pacemaker March 01) Physical Exam Heart Rate: 64 O2 Saturation: 98 Height: 6 ft Weight: 336 lb Body Mass Index: 45.6 BMI Classification: Morbidly Obese Impression and Plan 1. Obstructive Sleep Apnea-Hypopnea Syndrome, mild, with poor treatment compliance and excellent apnea control. On CPAP therapy, the patient has better sleep quality and is more rested overall. Patient has had a lot of difficulty wearing her fullface mask due to some dental infection issues. She cannot wear the mask for very long because it hurts her jaw. She has been sleeping in her recliner since getting her pacemaker replaced in February 2021. I advised patient to try a nasal cushion mask. This will not put much pressure on her jaw while she is dealing with this dental infection and then after surgery to remove her molars next month. Her current mask is a DreamWear full facemask. I will write for a [employer]ear nasal cushion mask for her to try to see if she can use this for longer periods with less pain in her jaw. Patient voiced understanding and agreement to try the nasal mask. Patient's apnea severity and rationale for treatment to reduce apnea, improve sleep quality and reduce cardiovascular and cerebrovascular events was reviewed. I also reviewed the benefit of consistent device use of CPAP for arrhythmia, GERD, mood disorder depression and anxiety. Patient was encouraged to lose weight for their overall health and to reduce apneas. * Continue auto CPAP pressure at 5-15 cmH2O * Try a nasal cushion mask by [employer]wear * Notify me if snoring with mask or feeling that the pressure is too much or too little * Attempt to lose weight * Call this office if any problems using CPAP * Return for follow up in 3 months, or sooner if concerns arise Counseling Topics: Spare mask, Weight loss health impact Visit Type: In Office Time Spent with Patient (minutes): 28 Provider Statement: I spent 100% of the Face to Face Visit with the patient with greater than 50% spent counseling the patient and coordination of care.
== END 2021-04-10 14:06 | disposition home or self-care (01) ==
LOC: SC 14:05
PROVIDERS: ATTEND Nurse Practitioner Family
DX: G47.33 Obstructive sleep apnea (adult) (pediatric) (principal); E66.01 Morbid (severe) obesity due to excess calories; Z68.42 Body mass index [BMI] 45.0-49.9, adult
CPT/HCPCS: 99213; G0463; 99212

== ENCOUNTER 2021-05-17 13:01 | Outpatient (CLI) | payer MEDICARE, MEDICAID | END 2021-05-17 13:02 | disposition home or self-care (01) | LOC: COV 13:01 | PROVIDERS: ATTEND Dentist Oral and Maxillofacial Surgery | DX: Z01.812 Encounter for preprocedural laboratory examination (principal); Z20.822 Contact with and (suspected) exposure to COVID-19 ==

== ENCOUNTER 2021-06-24 13:44 | Outpatient (CLI) | payer MEDICARE, MEDICAID | END 2021-06-24 13:45 | disposition critical access hospital (66) | LOC: EMS 13:44 | DX: R42 Dizziness and giddiness (principal); R55 Syncope and collapse | CPT/HCPCS: A0425; A0429 ==

== ENCOUNTER 2021-06-24 14:04 | Emergency (ER) | payer MEDICARE, MEDICAID ==
--- NOTE | 2021-06-24 14:14 | ED Physician Documentation ---
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 She had an episode today earlier today where she was walking in the house and became weak and dizzy. She fell without syncope hitting her back on the wall without injury. Now just feels out of it. She wonders if her AICD shocked her, but what she describes was a very subtle phenomenon with no significant pain so I suspect her AICD did not defibrillate her. Review of Systems Ten Systems: 10 systems reviewed and negative Constitutional: reports: Fatigue. denies: Fever, Chills Cardiac: denies: Chest pain / pressure, Palpitations Respiratory: denies: Dyspnea, Cough PD PAST MEDICAL HISTORY - Past Medical History Cardiovascular: AL, Arrhythmia, Other Respiratory: Sleep apnea, CPAP use Neuro: Head injury, Headaches, Seizure disorder, Other Endocrine/Autoimmune: HyPOthyroidism GI: GERD WEED CONTROL INSPECTOR: None : None HEENT: Chronic vision loss Psych: Depression, Anxiety, Panic attacks, Post traumatic stress disorder Musculoskeletal: None Derm: Other - Past Surgical History Past Surgical History: Yes General: Cholecystectomy, EGD, Other Cardiovascular: Pacemaker, AICD - Present Medications Home Medications: Ambulatory Orders Medication Instructions Recorded Confirmed Ferrous Gluconate 1 tab PO DAILY 05/21/14 06/24/21 LORazepam [Lorazepam] 0.5 mg PO Q12H PRN 05/21/14 06/24/21 Ezra Cit/Mag/D3/Zn/Metal Room Dental Technician/[place]/Bor 1 tab PO DAILY PM 12/10/16 06/24/21 [Citracal-D3 Plus Magnesium Tab] Cholecalciferol (Vitamin D3) 1,000 units PO BID 12/10/16 06/24/21 [Vitamin D3] Ubidecarenone [Co Q-10] 200 mg PO BID 12/10/16 06/24/21 Acetaminophen [Tylenol Extra 250 mg PO PRN PRN 04/03/18 06/24/21 Strength] Levetiracetam [Keppra] 1,500 mg PO BID 04/03/18 06/24/21 Pantoprazole [Protonix] 40 mg PO DAILY 04/03/18 06/24/21 DULoxetine [Cymbalta] 30 mg PO BID 02/09/19 06/24/21 Albuterol Sulf [Ventolin Hfa 1 - 2 puffs INH Q4HR PRN #1 inhaler 04/24/19 06/24/21 Inhaler] Compress.stocking,Knee,Reg,Lrg 1 each MC DAILY #1 each 04/24/19 06/24/21 [Relief Knee Close Toe] Lacto No.41/B.bifid/B.animalis 70 mg PO BID 04/30/19 06/24/21 [Probiotic-10 3 Billion Cell Cp] Magnesium Oxide [Magnesium] 500 mg PO BID 04/30/19 06/24/21 Potassium Chloride [Micro-K] 20 meq PO BID 04/30/19 06/24/21 Amiodarone [Pacerone] 200 mg PO DAILY 06/19/20 06/24/21 Levothyroxine Sodium 50 mcg PO DAILY 06/19/20 06/24/21 Propranolol HCl [Propranolol HCl 120 mg ORAL BID 06/19/20 06/24/21 ER] Topiramate [Topamax] 25 mg PO BID 06/19/20 06/24/21 Amox/Clav 875/125 [Augmentin 1 tablet PO DAILY 06/24/21 06/24/21 875/125 Tab] lamoTRIgine [Lamictal] 150 mg PO BID 06/24/21 06/24/21 - Allergies Allergies/Adverse Reactions: Allergies Allergy/AdvReac Type Severity Reaction Status Date / Time aripiprazole [From Abilify] Allergy Unknown Verified 06/24/21 14:17 bupropion [From Wellbutrin] Allergy Hallucinati Verified 06/24/21 14:17 ons buspirone [From BuSpar] Allergy Unknown Verified 06/24/21 14:17 lithium Allergy Unknown Verified 06/24/21 14:17 meclizine Allergy Unknown Verified 06/24/21 14:17 venlafaxine Allergy Unknown Verified 06/24/21 14:17 azithromycin [From Zithromax] AdvReac Severe prolonged Verified 06/24/21 14:17 qt ciprofloxacin [From Cipro] AdvReac Severe prolonged Verified 06/24/21 14:17 QT ciprofloxacin HCl * AdvReac Severe prolonged Verified 06/24/21 14:17 [From Cipro] QT desipramine AdvReac Severe prolonged Verified 06/24/21 14:17 QT diphenhydramine HCl * AdvReac Severe prolonged Verified 06/24/21 14:17 [From Benadryl] QT droperidol [From Inapsine] AdvReac Severe prolonged Verified 06/24/21 14:17 QT erythromycin base AdvReac Severe prolonged Verified 06/24/21 14:17 [Erythromycin Base] QT levofloxacin [From Levaquin] AdvReac Severe prolonged Verified 06/24/21 14:17 QT prochlorperazine edisylate * AdvReac Severe prolonged Verified 06/24/21 14:17 [From Compazine] qt prochlorperazine maleate * AdvReac Severe prolonged Verified 06/24/21 14:17 [From Compazine] qt sertraline AdvReac Severe prolonged Verified 06/24/21 14:17 QT lactose AdvReac Intermediate Cramps Verified 06/24/21 14:17 Sulfa (Sulfonamide AdvReac Hallucinati Verified 06/24/21 14:17 Antibiotics) ons tomato AdvReac Unknown Verified 06/24/21 14:17 - Social History Does the pt smoke?: No Smoking Status: Never smoker Does the pt drink ETOH?: No Does the pt have substance abuse?: No - Immunizations Immunizations are current?: Yes - POLST Patient has POLST: No POLST Status: Full Code PD ED PE NORMAL - Vitals Vital signs reviewed: Yes - General General: Alert and oriented X 3, No acute distress - HEENT HEENT: PERRL, EOMI - Neck Neck: Supple, no meningeal sign, No bony TTP - Cardiac Cardiac: RRR, No murmur - Respiratory Respiratory: No respiratory distress, Clear bilaterally - Abdomen Abdomen: Normal bowel sounds, Soft, Non tender - Extremities Extremities: Other (Mild bilateral pitting pedal edema which is chronic per her with venous stasis changes) - Neuro Neuro: Alert and oriented X 3, contract programmer 2-12 intact, No motor deficit, No sensory deficit, Normal speech Eye Opening: Spontaneous Motor: Obeys Commands Verbal: Oriented GCS Score: 15 - Psych Psych: Normal mood Results - Vitals Vitals: Vital Signs - 24 hr 06/24/21 06/24/21 06/24/21 14:06 14:38 14:48 Temperature 35.9 C L Heart Rate 59 L 51 L Heart Rate [ 50 L Sitting] Heart Rate [ 61 Standing] Heart Rate [ 51 L Supine] Respiratory 16 17 Rate Blood Pressure 154/79 H 128/82 H Blood Pressure 140/81 H [Sitting] Blood Pressure 127/81 H [Standing] Blood Pressure 130/72 [Supine] O2 Saturation 100 100 06/24/21 06/24/21 16:52 17:42 Temperature 36.5 C Heart Rate 57 L 55 L Heart Rate [ Sitting] Heart Rate [ Standing] Heart Rate [ Supine] Respiratory 16 18 Rate Blood Pressure 128/75 131/81 H Blood Pressure [Sitting] Blood Pressure [Standing] Blood Pressure [Supine] O2 Saturation 97 97 Oxygen O2 Source Room air - EKG (time done) 1414 Rate: Rate (enter#) (53) Rhythm: NSR [place]: Normal Intervals: Other (ivcd) QRS: Normal Ischemia: Normal ST segments - Labs Labs: Laboratory Tests 06/24/21 06/24/21 06/24/21 14:25 14:25 14:49 WBC 5.2 RBC 4.02 L Hgb 12.5 Hct 40.6 MCV 101.0 H MCH 31.1 H MCHC 30.8 L RDW 14.0 Plt Count 215 MPV 10.3 Neut # (Auto) 2.3 Lymph # (Auto) 2.4 [place] # (Auto) 0.4 Eos # (Auto) 0.1 Baso # (Auto) 0.1 Absolute Nucleated RBC 0.00 Nucleated RBC % 0.0 Sodium 137 Potassium 4.1 Chloride 105 Carbon Dioxide 26 Anion Gap 6.0 BUN 13 Creatinine 0.8 Estimated GFR (MDRD) 80 L Glucose 91 Calcium 9.4 Phosphorus 2.2 L Magnesium 2.2 Total Bilirubin 0.7 AST 33 ALT 33 Alkaline Phosphatase 74 Total Protein 7.2 Albumin 4.1 Globulin 3.1 Albumin/Globulin Ratio 1.3 Urine Color YELLOW Urine Clarity CLEAR Urine pH 7.5 Ur Specific [place] 1.020 Urine Protein NEGATIVE Urine Glucose (UA) NEGATIVE Urine Ketones NEGATIVE Urine Occult Blood NEGATIVE Urine Nitrite NEGATIVE Urine Bilirubin NEGATIVE Urine Urobilinogen 0.2 (NORMAL) Ur Leukocyte Esterase NEGATIVE Ur Microscopic Review NOT INDICATED Urine Culture Comments NOT INDICATED Urine HCG, Qual NEGATIVE PD MEDICAL DECISION MAKING - ED course ED course: Orthostatic vital signs reviewed and unremarkable. Her [place] AICD was interrogated and shows no episodes of VT or VF and no shocks. She remained well-appearing here without ectopy on the monitor and no new complaints. I tried to call the mother by phone with the patient's permission but there was no answer. I left a message inviting her to call back with any questions. Departure - Departure Disposition: 01 Home, Self Care Clinical Impression: Near syncope Condition: Good Record reviewed to determine appropriate education?: Yes Instructions: ED Near Syncope Unkn Comments: Your labs look fine and we interrogated your AICD today, there have been no events in the last month or so. Follow-up with your a operator. Continue current medications. Return as needed. Discharge Date/Time: 06/24/21 18:15
[2021-06-24 14:55] LABS: BASOPHILS # (AUTO) 0.1 10^3/uL (0.0-0.1); BASOPHILS % (AUTO) 1.1 %; EOSINOPHILS # (AUTO) 0.1 10^3/uL (0.0-0.7); EOSINOPHILS % (AUTO) 1.5 %; HCT - HEMATOCRIT 40.6 % (37.0-47.0); HGB - HEMOGLOBIN 12.5 g/dL (12.0-16.0); LYMPHOCYTES # (AUTO) 2.4 10^3/uL (1.5-3.5); LYMPHOCYTES % (AUTO) 46.1 %; MEAN CORPUSCULAR HEMOGLOBIN 31.1 pg (27.0-31.0); MEAN CORPUSCULAR HGB CONC 30.8 g/dL (32.0-36.0); MEAN PLATELET VOLUME 10.3 fL (7.9-10.8); MONOCYTES # (AUTO) 0.4 10^3/uL (0.0-1.0); NEUTROPHILS # (AUTO) 2.3 10^3/uL (1.5-6.6); NEUTROPHILS % (AUTO) 43.1 %; PLT - PLATELET COUNT 215 10^3/uL (130-450); RED BLOOD COUNT 4.02 10^6/uL (4.20-5.40); WHITE BLOOD COUNT 5.2 x10^3/uL (4.8-10.8)
[2021-06-24 15:23] LABS: ALBUMIN 4.1 g/dL (3.2-5.5); ALBUMIN/GLOBULIN RATIO 1.3 (1.0-2.2); BILIRUBIN,TOTAL 0.7 mg/dL (0.2-1.0); CALCIUM 9.4 mg/dL (8.5-10.3); CREATININE 0.8 mg/dL (0.4-1.0); MAGNESIUM 2.2 mg/dL (1.7-2.8); PHOSPHORUS 2.2 mg/dL (2.5-4.6); POTASSIUM 4.1 mmol/L (3.5-5.0); TOTAL PROTEIN 7.2 g/dL (6.7-8.2)
[2021-06-24 15:29] LABS: BILIRUBIN,URINE NEGATIVE (NEGATIVE); GLUCOSE, URINE (UA) NEGATIVE (NEGATIVE); KETONES,URINE (UA) NEGATIVE (NEGATIVE); LEUKOCYTE ESTERASE, URINE NEGATIVE (NEGATIVE); NITRITE,URINE NEGATIVE (NEGATIVE); OCCULT BLOOD,URINE NEGATIVE (NEGATIVE); PH,URINE 7.5 PH (5.0-7.5); PROTEIN,URINE NEGATIVE (NEGATIVE); UROBILINOGEN,URINE 0.2 (NORMAL) E.U./dL (NORMAL)
[2021-06-24 15:31] LABS: CLARITY,URINE CLEAR (CLEAR); HCG UR QUAL NEGATIVE
[2021-06-24 17:43] VITALS: BP 131/81
== END 2021-06-24 18:15 | disposition home or self-care (01) ==
LOC: EDUNIT# → ED 14:04
DX: R55 Syncope and collapse (principal); G47.30 Sleep apnea, unspecified; G40.909 Epilepsy, unspecified, not intractable, without status epilepticus; E03.9 Hypothyroidism, unspecified; K21.9 Gastro-esophageal reflux disease without esophagitis; H54.7 Unspecified visual loss; F43.10 Post-traumatic stress disorder, unspecified; F41.0 Panic disorder [episodic paroxysmal anxiety]; F41.9 Anxiety disorder, unspecified; F32.9 Major depressive disorder, single episode, unspecified; Z86.74 Personal history of sudden cardiac arrest; Z95.810 Presence of automatic (implantable) cardiac defibrillator; Z91.81 History of falling; Z79.899 Other long term (current) drug therapy
CPT/HCPCS: 36415; 80053; 81001; 81003; 81025; 83735; 84100; 85025; 87086; 93005; 99283; 99284

== ENCOUNTER 2021-07-19 10:55 | Outpatient (CLI) | payer MEDICARE, MEDICAID ==
--- NOTE | 2021-07-19 13:25 | SLEEP CARE CONSULTATION ---
Information from patient questionnaire entered by Chidi Summers MA. I have reviewed and concur with the information entered by Chidi Summers MA. This document represents the service I personally performed and the decisions made by , Amy An ARNP. History of Present Illness Service Date and Time: 07/19/2021 1055 Previous diagnosis: Mild, Obstructive Sleep Apnea-Hypopnea Syndrome AHI: 7.9 (in 2019) Reason for follow up: three month Equipment type: CPAP Equipment obtained from: [employer] [facility] (getting supplies as needed) Mask style: Full face (medium, needs a small) Backup mask available: Yes (other mask) Prior sleep studies: Yes Year and Where: 2019 - [facility] Type of Sleep Study: Polysomnography HPI additional information: YOLI JACKSON was diagnosed to have mild, AHI 7.9, obstructive sleep apnea- hypopnea syndrome and returned today with caregiver for CPAP therapy three month follow-up. Sleep Study - Results Type of Sleep Study: Polysomnography Prior sleep studies: Yes Year and Where: 2019 - [facility] CPAP Compliance Data - Data Reviewed with Patient Average duration of nightly device use: 1 HOURS 45 MINUTES Compliance rate %: 1 Current pressure setting (cmH2O): 5-15 Average residual AHI: 1.7 Central apnea: 1.1 Obstructive apnea: .3 Subjective Missed days of use due to: reports: other (odor in machine; prolonged dental issues and surgery) Patient concerns: reports: mask discomfort (too big, needs a small and has some supplies at home), air blowing in eyes, condensation in mask/hose (has adjusted her climate control but has not got), dry mouth, nose, throat Observed to snore while using device: No Current pressure setting perceived as: comfortable On therapy, patient: reports: sleeping better, awakening more refreshed, being more awake and alert during the day, more rested overall. denies: drowsiness while driving (patient does not drive) Initial [place] Sleepiness Scale score: 15 (in 2019) Current [place] Sleepiness Scale score: 18 Allergies and Home Medications Home medication list reviewed: Yes (Augmentin, Lamotrigine) Review of Systems Review of systems same as previous: Yes (no changes) Physical Exam Vital signs obtained and entered by: [employer] Blood Pressure: 118/68 (LEFT) Cuff size: wrist Heart Rate: 66 O2 Saturation: 95 Height: 6 ft Weight: 305 lb (STATES TRYING TO LOSE WEIGHT) Body Mass Index: 41.3 BMI Classification: Morbidly Obese Impression and Plan 1. Obstructive Sleep Apnea-Hypopnea Syndrome, mild, with poor treatment compliance and good apnea control. On CPAP therapy, the patient has better sleep quality and is more rested overall. Patient has had ongoing dental issues that required surgery. She had multiple molars removed. She has recovered well with reduction in pain but is scheduled to have another surgery in September 2021. She has tried to use her CPAP but there is an odor in the device that is unpleasant. She has changed out her tubing, headgear and water chamber but the odor is still there. She was advised to try some diluted chlorine or vinegar to clean her water chamber and tubing to see if the odor will resolve. If not she was instructed to call [employer] (her DME) for further advise on removing odor from machine. She has also had some issue with dry mouth. She tried to increase her humidity but then got some condensation that dripped on her face. She was advised to increase her heated hose to reduce the condensation. She voiced understanding. She tried the nasal cushion mask to see if this was more comfortable to use over the full face due to her dental issues. She states the nasal cushion was not as comfortable and she went back to the full face mask. But, she started using a medium size mask which does not fit her face as well. She has some extra mask supplies somewhere at home with a small size full face mask. She will try to find this and change back to the small size mask. She states she is sleeping in her recliner because she cannot sleep on her sides due to pain and is more comfortable there since she has not been able to use her CPAP as consistently. I encouraged her to continue to sleep with head elevated when not using her CPAP. She voiced understanding. Patient's apnea severity and rationale for treatment to reduce apnea, improve sleep quality and reduce cardiovascular and cerebrovascular events was reviewed. I also reviewed the benefit of consistent device use of CPAP for arrhythmia, gastric reflux, depression, anxiety and mood disorder. Patient was also encouraged to lose weight for their overall health and to reduce apneas. * Continue auto CPAP pressure at 5-15 cmH2O * Check with [employer] about smell in machine * Notify me if snoring with mask or feeling that the pressure is too much or too little * Attempt to lose weight * Call this office if any problems using CPAP * Return for follow up in 3 months, or sooner if concerns arise Counseling Topics: Sleeping position, Spare mask, Weight loss health impact Visit Type: In Office Time Spent with Patient (minutes): 29 Provider Statement: I spent 100% of the Face to Face Visit with the patient with greater than 50% spent counseling the patient and coordination of care.
[2021-07-19 13:26] VITALS: BP 118/68
== END 2021-07-19 10:56 | disposition home or self-care (01) ==
LOC: SC 10:55
PROVIDERS: ATTEND Nurse Practitioner Family
DX: G47.33 Obstructive sleep apnea (adult) (pediatric) (principal); E66.01 Morbid (severe) obesity due to excess calories; Z68.41 Body mass index [BMI] 40.0-44.9, adult
CPT/HCPCS: 99213; G0463; 99212

== ENCOUNTER 2022-06-02 22:17 | Outpatient (CLI) | payer MEDICAID | END 2022-06-02 22:18 | disposition EMS.NT | LOC: EMS 22:17 | DX: R45.89 Other symptoms and signs involving emotional state (principal) ==